=== PATIENT | female | born 1990 | race Caucasian/White ===

== ENCOUNTER → 2016-11-08 | Outpatient (CLI) | payer OTHER | END | disposition home or self-care (01) | LOC: LABWHC1 10:44 | PROVIDERS: ATTEND Obstetrics & Gynecology | DX: Z33.1 Pregnant state, incidental (principal) | CPT/HCPCS: 36415; 84702 ==

== ENCOUNTER → 2016-11-10 | Outpatient (CLI) | payer OTHER | END | disposition home or self-care (01) | LOC: LABWHC1 11:48 | PROVIDERS: ATTEND Obstetrics & Gynecology | DX: Z34.90 Encounter for supervision of normal pregnancy, unspecified, unspecified trimester (principal) | CPT/HCPCS: 36415; 84702 ==

== ENCOUNTER 2016-11-15 20:49 | Emergency (ER) | payer OTHER ==
[2016-11-15 21:54] LABS: Appearance,Urine Cloudy (Clear); Bacteria,Urine Rare /hpf; Bilirubin,Urine Negative (Negative); Glucose,Urine (UA) Negative (Negative); Ketones,Urine Negative (Negative); Leukocyte Esterase,Urine Small (Negative); Mucus,Urine Rare /hpf; Nitrite,Urine Negative (Negative); Particle Count 2500; Protein,Urine Negative (Negative); RBC,Urine 1 /hpf (0-5); Squamous Epithelial Cell,Urine 5 /hpf (0-4); UA Billing (MACRO vs. MICRO) MICRO; Urobilinogen,Urine <2.0 mg/dL (<2.0); WBC,Urine 2 /hpf (0-5)
--- NOTE | 2016-11-15 22:16 | ED ---
Abdominal Pain HPI - General Chief Complaint: Abdominal Pain Stated Complaint: 6 wks . Cramping Time Seen by Provider: 11/15/16 21:24 Source: patient Mode of arrival: ambulatory Limitations: no limitations - History of Present Illness Initial Comments: Patient is 26-year-old woman who states that she was at work today around 1 PM when she noticed abdominal cramping, mainly in the left lower quadrant but also sometimes across the upper abdomen. She states it was intermittent, is moderate intensity. The patient denies associated symptoms. She has not had change in bowel movements or urination. She is not having vaginal bleeding. She states that she is 6 weeks based on last menstrual period and she has had positive test. Patient relates previous history of ectopic and also of having had miscarriages. She sees Dr. Kuester. FUENTES Complaint: abdominal pain Onset/Timin -: hour(s) Location: LLQ Migration to: no migration Severity: moderate Quality: cramping Consistency: intermittent Improves With: nothing Worsens With: nothing Associated Symptoms: denies other symptoms - Related Data LMP (females 10-50): 2 months Patient : Yes Home Medications Medication Instructions Recorded Confirmed Ciprofloxacin HCl [Cipro] 250 mg PO Q12HR 10/11/15 10/11/15 Previous Rx's Medication Instructions Recorded Naproxen 500 mg PO Q12HR 14 Days 10/11/15 Amoxicillin 500 mg PO Q8H #21 capsule 11/16/16 Allergies Allergy/AdvReac Type Severity Reaction Status Date / Time aspirin Allergy Rash/Hives Verified 11/15/16 20:55 cinnamon Allergy Anaphylaxis Verified 11/15/16 20:55 molasses Allergy Unknown Verified 11/15/16 20:55 amphetamine aspartate AdvReac Confusion Verified 11/15/16 20:55 [From Adderall] amphetamine sulfate AdvReac Confusion Verified 11/15/16 20:55 [From Adderall] benztropine mesylate AdvReac Hallucinati Verified 11/15/16 20:55 [From Cogentin] ons codeine AdvReac Hallucinati Verified 11/15/16 20:55 ons dextroamphetamine saccharate AdvReac Confusion Verified 11/15/16 20:55 [From Adderall] dextroamphetamine sulfate AdvReac Confusion Verified 11/15/16 20:55 [From Adderall] lamotrigine [From Lamictal] AdvReac Rash/Hives Verified 11/15/16 20:55 BR[place]AR Allergy Anaphylaxis Uncoded 11/15/16 20:55 Review of Systems ROS Statement: Those systems with pertinent positive or pertinent negative responses have been documented in the HPI. ROS Other: All systems not noted in ROS Statement are negative. Constitutional: Denies: fever, chills Respiratory: Denies: cough, dyspnea Cardiovascular: Denies: chest pain, palpitations Gastrointestinal: Reports: as per HPI, abdominal pain. Denies: nausea, vomiting Genitourinary: Denies: urgency, dysuria, frequency, hematuria, discharge, abnormal menses Musculoskeletal: Denies: back pain Skin: Denies: rash Neurological: Denies: headache, weakness, numbness Hematological/Lymphatic: Denies: easy bleeding Past Medical History Past Medical History: No Reported History Additional Past Medical History / Comment(s): heart murmur, ectopic History of Any Multi-Drug Resistant Organisms: MRSA Date of last positivie culture/infection: 2010 MDRO Source:: Left Knee Past Surgical History: No Surgical Hx Reported Additional Past Surgical History / Comment(s): ovary removal, lumpectomy Past Psychological History: Anxiety, Bipolar, Depression Smoking Status: Current every day smoker Past Alcohol Use History: Occasional Past Drug Use History: None Reported General Exam Limitations: no limitations General appearance: alert, in no apparent distress Head exam: Present: atraumatic, normocephalic Eye exam: Present: normal appearance. Absent: scleral icterus, conjunctival injection ENT exam: Present: normal oropharynx, mucous membranes moist Respiratory exam: Present: normal lung sounds bilaterally. Absent: respiratory distress, wheezes, rales, rhonchi, stridor Cardiovascular Exam: Present: regular rate, normal rhythm, normal heart sounds. Absent: systolic murmur, diastolic murmur, rubs, gallop GI/Abdominal exam: Present: soft, normal bowel sounds. Absent: distended, tenderness, guarding, rebound, rigid, mass, pulsatile mass, hernia External exam: Present: normal external exam. Absent: erythema, swelling, lesions, lacerations, ecchymosis Speculum exam: Present: normal speculum exam. Absent: erythema, vaginal discharge, cervical discharge, vaginal bleeding, foreign body, tissue, laceration By manual exam: Present: normal by manual exam. Absent: cervical motion tenderness, adnexal tenderness, adnexal mass, uterine enlargement, uterine tenderness Extremities exam: Present: normal inspection, normal capillary refill. Absent: pedal edema, calf tenderness Back exam: Present: normal inspection. Absent: CVA tenderness (R), CVA tenderness (L), vertebral tenderness Neurological exam: Present: alert Skin exam: Present: warm, dry, intact, normal color. Absent: rash Course Vital Signs 11/15/16 11/15/16 11/16/16 20:51 22:25 01:00 Temperature 97.3 F L Pulse Rate 95 82 88 Respiratory 18 16 18 Rate Blood Pressure 114/60 123/56 113/59 O2 Sat by Pulse 99 99 97 Oximetry Medical Decision Making - Lab Data Lab Results 11/15/16 11/15/16 11/15/16 Range/Units 21:30 21:30 21:30 HCG, Quant mIU/mL Urine Color Light Yellow Urine Appearance Cloudy H (Clear) Urine pH 6.0 (5.0-8.0) Ur Specific [place] 1.010 (1.001-1.035) Urine Protein Negative (Negative) Urine Glucose (UA) Negative (Negative) Urine Ketones Negative (Negative) Urine Blood Negative (Negative) Urine Nitrite Negative (Negative) Urine Bilirubin Negative (Negative) Urine Urobilinogen <2.0 (<2.0) mg/dL Ur Leukocyte Esterase Small H (Negative) Urine RBC 1 (0-5) /hpf Urine WBC 2 (0-5) /hpf Ur Squamous Epith Cells 5 H (0-4) /hpf Urine Bacteria Rare H (None) /hpf Urine Mucus Rare H (None) /hpf Urine HCG, Qual Detected (Not Detectd) Trichomonas Ag (Rapid) (Negative) Blood Type A Positive Blood Type Recheck No 11/15/16 11/15/16 Range/Units 21:30 21:30 HCG, Quant 44282.0 mIU/mL Urine Color Urine Appearance (Clear) Urine pH (5.0-8.0) Ur Specific [place] (1.001-1.035) Urine Protein (Negative) Urine Glucose (UA) (Negative) Urine Ketones (Negative) Urine Blood (Negative) Urine Nitrite (Negative) Urine Bilirubin (Negative) Urine Urobilinogen (<2.0) mg/dL Ur Leukocyte Esterase (Negative) Urine RBC (0-5) /hpf Urine WBC (0-5) /hpf Ur Squamous Epith Cells (0-4) /hpf Urine Bacteria (None) /hpf Urine Mucus (None) /hpf Urine HCG, Qual (Not Detectd) Trichomonas Ag (Rapid) Negative (Negative) Blood Type Blood Type Recheck Disposition Clinical Impression: Abdominal pain, Bacteriuria during Disposition: HOME SELF-CARE Condition: Good Instructions: Abdominal Pain in (ED) Prescriptions: Amoxicillin 500 mg PO Q8H #21 capsule Referrals: Saleem Valle DO [Doctor of Osteopathic Medicine] - 1-2 days
[2016-11-16 01:01] VITALS: RESP 18
--- NOTE | 2016-11-16 01:23 | US ---
EXAM: US First Trimester, Transabdominal US , Transvaginal CLINICAL HISTORY: Pain, cramping TECHNIQUE: Real-time transabdominal and transvaginal obstetrical ultrasound of the maternal pelvis and a first trimester with image documentation. Transvaginal imaging was used for better evaluation of the fetus and adnexa. COMPARISON: No relevant prior studies available. FINDINGS: Beta-hCG level: 19401 Gestation: Single live intrauterine . Estimated sonographic gestational age of 6 weeks and 3 days. heart rate measures 128 bpm. Uterus/cervix: The uterus measures 7.7 x 4.9 x 4.8 cm. No myometrial mass. Ovaries: 2.2 cm complex right ovarian cyst is favored to represent a corpus luteum. There is normal vascular flow in bilateral ovaries. The right ovary measures 4.4 x 2.1 x 3.0 cm. The left ovary measures 3.9 x 2. 0 x 2.7 cm. Free fluid: No free fluid. IMPRESSION: Single live intrauterine with an estimated sonographic gestational age of 6 weeks and 3 days.
[2016-11-16 02:14] VITALS: BP 119/60; PULSE 82; TEMP 98.2
== END 2016-11-16 02:14 | disposition home or self-care (01) ==
LOC: EC 20:49
DX: O99.89 Other specified diseases and conditions complicating pregnancy, childbirth and the puerperium (principal); R82.71 Bacteriuria; R10.32 Left lower quadrant pain; O99.331 Smoking (tobacco) complicating pregnancy, first trimester; F17.200 Nicotine dependence, unspecified, uncomplicated; Z3A.01 Less than 8 weeks gestation of pregnancy; Z86.14 Personal history of Methicillin resistant Staphylococcus aureus infection; Z88.5 Allergy status to narcotic agent; Z88.6 Allergy status to analgesic agent; Z88.8 Allergy status to other drugs, medicaments and biological substances; Z91.018 Allergy to other foods; Z91.048 Other nonmedicinal substance allergy status
CPT/HCPCS: 36415; 76801; 76817; 81001; 81025; 84702; 86900; 86901; 87070; 87205; 87491; 87591; 87808; 99284

== ENCOUNTER 2016-11-16 19:33 | Emergency (ER) | payer OTHER ==
[2016-11-16 20:09] VITALS: RESP 18
--- NOTE | 2016-11-16 21:08 | ED ---
Female Urogenital HPI - General Chief complaint: Vaginal Bleeding Stated complaint: Vag bleeding/6wks Time Seen by Provider: 11/16/16 20:42 Source: patient, RN notes reviewed Mode of arrival: ambulatory Limitations: no limitations - History of Present Illness Initial comments: Patient is a 26-year-old female presents to the emergency room for evaluation. Patient states she was here last night for abdominal cramping. Patient states she 6 weeks . Patient states after having sexual intercourse this afternoon she began having vaginal spotting. 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 Patient states she had an ultrasound yesterday which showed a confirmed intrauterine . Patient denies worsening pain. Patient denies nausea or vomiting. Patient denies headache or dizziness. Patient states the vaginal bleeding worried her, so she thought she should be evaluated. Patient denies passing clots. Patient denies pain or burning during urination. - Related Data Home Medications Medication Instructions Recorded Confirmed Ciprofloxacin HCl [Cipro] 250 mg PO Q12HR 10/11/15 10/11/15 Previous Rx's Medication Instructions Recorded Naproxen 500 mg PO Q12HR 14 Days 10/11/15 Amoxicillin 500 mg PO Q8H #21 capsule 11/16/16 Allergies Allergy/AdvReac Type Severity Reaction Status Date / Time aspirin Allergy Rash/Hives Verified 11/16/16 20:09 cinnamon Allergy Anaphylaxis Verified 11/16/16 20:09 molasses Allergy Unknown Verified 11/16/16 20:09 amphetamine aspartate AdvReac Confusion Verified 11/16/16 20:09 [From Adderall] amphetamine sulfate AdvReac Confusion Verified 11/16/16 20:09 [From Adderall] benztropine mesylate AdvReac Hallucinati Verified 11/16/16 20:09 [From Cogentin] ons codeine AdvReac Hallucinati Verified 11/16/16 20:09 ons dextroamphetamine saccharate AdvReac Confusion Verified 11/16/16 20:09 [From Adderall] dextroamphetamine sulfate AdvReac Confusion Verified 11/16/16 20:09 [From Adderall] lamotrigine [From Lamictal] AdvReac Rash/Hives Verified 11/16/16 20:09 [place] Allergy Anaphylaxis Uncoded 11/16/16 20:09 Review of Systems ROS Statement: Those systems with pertinent positive or pertinent negative responses have been documented in the HPI. ROS Other: All systems not noted in ROS Statement are negative. Past Medical History Past Medical History: No Reported History Additional Past Medical History / Comment(s): heart murmur, ectopic History of Any Multi-Drug Resistant Organisms: MRSA Date of last positivie culture/infection: 2010 MDRO Source:: Left Knee Past Surgical History: No Surgical Hx Reported Additional Past Surgical History / Comment(s): ovary removal, lumpectomy Past Psychological History: Anxiety, Bipolar, Depression Smoking Status: Current every day smoker Past Alcohol Use History: Occasional Past Drug Use History: None Reported General Exam - General Exam Comments Initial Comments: Sitting in exam room, no acute distress. Limitations: no limitations General appearance: alert, in no apparent distress Head exam: Present: atraumatic, normocephalic, normal inspection Eye exam: Present: normal appearance ENT exam: Present: normal exam Neck exam: Present: normal inspection Respiratory exam: Present: normal lung sounds bilaterally. Absent: respiratory distress Cardiovascular Exam: Present: regular rate, normal rhythm, normal heart sounds GI/Abdominal exam: Present: soft, normal bowel sounds. Absent: distended, tenderness, guarding, rebound, rigid External exam: Present: normal external exam Speculum exam: Present: vaginal bleeding (Mild blood in the vaginal vault) Extremities exam: Present: normal inspection Back exam: Present: normal inspection Neurological exam: Present: alert, oriented X3, CN II-XII intact, normal gait Psychiatric exam: Present: normal affect, normal mood Skin exam: Present: warm, dry, intact, normal color. Absent: rash Course Vital Signs 11/16/16 11/16/16 20:06 23:26 Temperature 98.6 F 98.5 F Pulse Rate 88 77 Respiratory 18 18 Rate Blood Pressure 128/64 111/60 O2 Sat by Pulse 100 98 Oximetry Medical Decision Making - Medical Decision Making patient is a 26-year-old female presents emergency room with reevaluation of vaginal bleeding. Patient states that 6 weeks . Patient had ultrasound yesterday confirmed IUP. Patient having vaginal bleeding today. Patient's serum beta-hCG yesterday was 24302.0. [place] [address].4. Advised patient to return to lab and 48 hours for repeat serum beta hCG. Strongly advised patient to refrain from sexual intercourse. Patient states she understands everything that was discussed with her. Return parameters discussed. Case discussed with Dr. Sanders. - Lab Data Lab Results 11/16/16 11/16/16 Range/Units 21:33 21:33 HCG, Quant 51848.4 mIU/mL Urine Color Yellow Urine Appearance Clear (Clear) Urine pH 6.0 (5.0-8.0) Ur Specific [place] 1.021 (1.001-1.035) Urine Protein Negative (Negative) Urine Glucose (UA) Negative (Negative) Urine Ketones Negative (Negative) Urine Blood Trace H (Negative) Urine Nitrite Negative (Negative) Urine Bilirubin Negative (Negative) Urine Urobilinogen <2.0 (<2.0) mg/dL Ur Leukocyte Esterase Negative (Negative) Urine RBC <1 (0-5) /hpf Urine WBC 3 (0-5) /hpf Ur Squamous Epith Cells 1 (0-4) /hpf Urine Mucus Many H (None) /hpf - Radiology Data Radiology results: report reviewed, image reviewed Disposition Clinical Impression: Threatened Disposition: HOME SELF-CARE Condition: Good Instructions: Threatened Miscarriage (ED) Additional Instructions: Drink plenty of water. Please follow-up with [facility]. Refrain from sexual intercourse. Take Tylenol as needed for pain. Please return to lab in 48 hours for repeat serum beta hCG. If any new symptom arises or symptoms worsen, return to ER as soon as possible. Referrals: Mani Pozo MD [Primary Care Provider] - 1-2 days Saleem Valle DO [Doctor of Osteopathic Medicine] - 1-2 days Time of Disposition: 23:02
[2016-11-16 22:02] LABS: Appearance,Urine Clear (Clear); Bilirubin,Urine Negative (Negative); Glucose,Urine (UA) Negative (Negative); Ketones,Urine Negative (Negative); Leukocyte Esterase,Urine Negative (Negative); Mucus,Urine Many /hpf; Nitrite,Urine Negative (Negative); Particle Count 6422; Protein,Urine Negative (Negative); RBC,Urine <1 /hpf (0-5); Specific Gravity,Urine 1.021 (1.001-1.035); Squamous Epithelial Cell,Urine 1 /hpf (0-4); UA Billing (MACRO vs. MICRO) MICRO; Urobilinogen,Urine <2.0 mg/dL (<2.0); WBC,Urine 3 /hpf (0-5)
[2016-11-16 23:29] VITALS: BP 111/60; PULSE 77; TEMP 98.5
== END 2016-11-16 23:30 | disposition home or self-care (01) ==
LOC: EC 19:33
DX: O20.0 Threatened abortion (principal); Z3A.01 Less than 8 weeks gestation of pregnancy; F17.200 Nicotine dependence, unspecified, uncomplicated; Z88.6 Allergy status to analgesic agent; Z88.8 Allergy status to other drugs, medicaments and biological substances; Z91.018 Allergy to other foods
CPT/HCPCS: 36415; 81001; 84702; 99284

== ENCOUNTER → 2016-11-18 | Outpatient (CLI) | payer OTHER | END | disposition home or self-care (01) | LOC: LABWHC1 12:33 | PROVIDERS: ATTEND Physician Assistant | DX: O20.0 Threatened abortion (principal); Z3A.00 Weeks of gestation of pregnancy not specified | CPT/HCPCS: 36415; 84702 ==

== ENCOUNTER 2016-11-25 13:06 | Emergency (ER) | payer OTHER ==
[2016-11-25 13:19] VITALS: RESP 18
[2016-11-25 14:06] LABS: Basophils % (A) 0 %; CH 29.9; CHCM 34.4; Eosinophils # (A) 0.1 k/uL (0-0.7); Eosinophils % (A) 1 %; HCT 36.7 % (34.0-46.0); HDW 2.31; HGB 12.2 gm/dL (11.4-16.0); Luc # (Auto) 0.14; Luc % (Auto) 1; Lymphocytes # (A) 1.7 k/uL (1.0-4.8); Lymphocytes % (A) 17 %; MCH 29.1 pg (25.0-35.0); MCHC 33.3 g/dL (31.0-37.0); MCV 87.3 fL (80.0-100.0); Monocytes # (A) 0.6 k/uL (0-1.0); Monocytes % (A) 6 %; Neutrophils # (A) 7.4 k/uL (1.3-7.7); Neutrophils % (A) 74 %; RDW 13.7 % (11.5-15.5); WBC (Perox) 10.31
[2016-11-25 14:12] LABS: Appearance,Urine Clear (Clear); Bilirubin,Urine Negative (Negative); Glucose,Urine (UA) Negative (Negative); Ketones,Urine Negative (Negative); Leukocyte Esterase,Urine Negative (Negative); Mucus,Urine Few /hpf; Nitrite,Urine Negative (Negative); PH, Urine 5.5 (5.0-8.0); Particle Count 6790; Protein,Urine Trace (Negative); RBC,Urine 115 /hpf (0-5); Specific Gravity,Urine 1.016 (1.001-1.035); Squamous Epithelial Cell,Urine 1 /hpf (0-4); UA Billing (MACRO vs. MICRO) MICRO; Urobilinogen,Urine <2.0 mg/dL (<2.0); WBC,Urine 3 /hpf (0-5)
--- NOTE | 2016-11-25 14:37 | ED ---
Female Urogenital HPI - General Chief complaint: Vaginal Bleeding Stated complaint: Miscarriage-vaginal bleeding Time Seen by Provider: 11/25/16 13:24 Source: patient, RN notes reviewed Mode of arrival: ambulatory Limitations: no limitations - History of Present Illness Initial comments: 26-year-old female presented emergency department for vaginal bleeding, passing clots. Patient states that started earlier today. She states she has been seen in emergency department prior in this for bleeding but states that stopped up until today. She does complain of abdominal cramping. Patient denies any fever or chills denies nausea vomiting diarrhea constipation. Patient states her FRIT MAKER is Dr. Lu. Patient is a 4 patient has had one ectopic and 3 miscarriages Last Menstrual Period: 10/03/16 - Related Data Home Medications Medication Instructions Recorded Confirmed Acetaminophen [Tylenol] 325 mg PO Q4H PRN 11/25/16 11/25/16 Albuterol Inhaler [Ventolin Hfa 2 puff INHALATION RT-DAILY PRN 11/25/16 11/25/16 Inhaler] Pnv,Calcium 72/Iron/Folic Acid 1 tab PO DAILY 11/25/16 11/25/16 [ Plus Tablet] Allergies Allergy/AdvReac Type Severity Reaction Status Date / Time aspirin Allergy Rash/Hives Verified 11/25/16 13:59 cinnamon Allergy Anaphylaxis Verified 11/25/16 13:59 molasses Allergy Unknown Verified 11/25/16 13:59 amphetamine aspartate AdvReac Confusion Verified 11/25/16 13:59 [From Adderall] amphetamine sulfate AdvReac Confusion Verified 11/25/16 13:59 [From Adderall] benztropine mesylate AdvReac Hallucinati Verified 11/25/16 13:59 [From Cogentin] ons codeine AdvReac Hallucinati Verified 11/25/16 13:59 ons dextroamphetamine saccharate AdvReac Confusion Verified 11/25/16 13:59 [From Adderall] dextroamphetamine sulfate AdvReac Confusion Verified 11/25/16 13:59 [From Adderall] lamotrigine [From Lamictal] AdvReac Rash/Hives Verified 11/25/16 13:59 [place] Allergy Anaphylaxis Uncoded 11/25/16 13:19 Review of Systems ROS Statement: Those systems with pertinent positive or pertinent negative responses have been documented in the HPI. ROS Other: All systems not noted in ROS Statement are negative. Past Medical History Past Medical History: No Reported History Additional Past Medical History / Comment(s): heart murmur, ectopic History of Any Multi-Drug Resistant Organisms: MRSA Date of last positivie culture/infection: 2010 MDRO Source:: Left Knee Past Surgical History: No Surgical Hx Reported Additional Past Surgical History / Comment(s): ovary removal, lumpectomy Past Psychological History: Anxiety, Bipolar, Depression Smoking Status: Current every day smoker Past Alcohol Use History: Occasional Past Drug Use History: None Reported General Exam Limitations: no limitations General appearance: alert, in no apparent distress Respiratory exam: Present: normal lung sounds bilaterally. Absent: respiratory distress, wheezes, rales, rhonchi, stridor Cardiovascular Exam: Present: regular rate, normal rhythm, normal heart sounds. Absent: systolic murmur, diastolic murmur, rubs, gallop, clicks GI/Abdominal exam: Present: soft, normal bowel sounds. Absent: distended, tenderness, guarding, rebound, rigid External exam: Present: normal external exam, other (Exam performed with Cherri RN) Speculum exam: Present: vaginal bleeding (large blood clot removed) Back exam: Absent: CVA tenderness (R), CVA tenderness (L) Skin exam: Present: warm, dry, intact, normal color. Absent: rash Course Vital Signs 11/25/16 11/25/16 13:17 15:40 Temperature 98.1 F Pulse Rate 90 80 Respiratory 18 18 Rate Blood Pressure 133/91 109/54 O2 Sat by Pulse 99 98 Oximetry Medical Decision Making - Medical Decision Making 26-year-old female presented for vaginal bleeding and . Patient ultrasound did show viable IUP 8 weeks 1 day. Patient's quad did elevate over 70,000. Patient denies a large clot in the emergency Department and had repeat ultrasound which showed continue heart tones. Patient will be discharged prior to follow up with Dr. Valle return parameters were discussed. - Lab Data Result diagrams: 11/25/16 13:35 Lab Results 11/25/16 11/25/16 11/25/16 Range/Units 13:35 13:35 13:35 WBC 10.0 (3.8-10.6) k/uL RBC 4.20 (3.80-5.40) m/uL Hgb 12.2 (11.4-16.0) gm/dL Hct 36.7 (34.0-46.0) % MCV 87.3 (80.0-100.0) fL MCH 29.1 (25.0-35.0) pg MCHC 33.3 (31.0-37.0) g/dL RDW 13.7 (11.5-15.5) % Plt Count 390 (150-450) k/uL Neutrophils % 74 % Lymphocytes % 17 % Monocytes % 6 % Eosinophils % 1 % Basophils % 0 % Neutrophils # 7.4 (1.3-7.7) k/uL Lymphocytes # 1.7 (1.0-4.8) k/uL Monocytes # 0.6 (0-1.0) k/uL Eosinophils # 0.1 (0-0.7) k/uL Basophils # 0.0 (0-0.2) k/uL HCG, Quant 07843.9 mIU/mL Urine Color Yellow Urine Appearance Clear (Clear) Urine pH 5.5 (5.0-8.0) Ur Specific [place] 1.016 (1.001-1.035) Urine Protein Trace H (Negative) Urine Glucose (UA) Negative (Negative) Urine Ketones Negative (Negative) Urine Blood Moderate H (Negative) Urine Nitrite Negative (Negative) Urine Bilirubin Negative (Negative) Urine Urobilinogen <2.0 (<2.0) mg/dL Ur Leukocyte Esterase Negative (Negative) Urine RBC 115 H (0-5) /hpf Urine WBC 3 (0-5) /hpf Ur Squamous Epith Cells 1 (0-4) /hpf Urine Mucus Few H (None) /hpf Disposition Clinical Impression: Threatened miscarriage Disposition: HOME SELF-CARE Condition: Stable Instructions: Threatened Miscarriage (ED) Additional Instructions: Please return to the Emergency Department if symptoms worsen or any other concerns. Referrals: Mani Pozo MD [Primary Care Provider] - 1-2 days Saleem Valle DO [Doctor of Osteopathic Medicine] - 1-2 days Time of Disposition: 15:44
--- NOTE | 2016-11-25 15:11 | US ---
EXAMINATION TYPE: US OB <=14 wks transvag DATE OF EXAM: 11/25/2016 COMPARISON: US 2017 CLINICAL HISTORY: Pain. EC patient with vaginal bleeding, pelvic pain and cramping today, ; Left Fallopian tube surgically removed per patient. EXAM PERFORMED: Transvaginal (TV) and Transabdominal (TA), transabdominal scanning performed for bet ter evaluation of the uterus and ovaries EXAM MEASUREMENTS: GESTATIONAL AGE / DATING Physician Established: not established Dates by LMP: (7 weeks/4 days) EDC: 07/10/2017 Dates by First Scan: (7 weeks/5 days) EDC: 07/09/2017 Dates by Current Scan for: (8 weeks/1 day) EDC: 07/06/2017 MATERNAL ANATOMY Uterus: anteverted Right Ovary: 3.1 x 3.3 x 1.5cm Left Ovary: 2.9 x 1.5 x 1.3cm Post CDS / Adnexa: wnl Presence of free fluid: no Presence of corpus luteal cyst: in right ovary = 1.6 x 1.2 x 1.0cm Presence of subchorionic bleed: no, however, vaginal bleeding still noted after end of TV US GESTATION / SURVEY CRL: 1.7cm (8 weeks/1 day) Yolk Sac (normal less than 6mm): 2.8mm Heart Rate: 172 bpm Rhythm: Normal IUP: Viable IUP Date of LMP: 10/03/2016 Beta HcG (if available): NA Chorion and amnion are not thought to have fused. Indeterminate decreased echogenicity noted within the pole. IMPRESSION: Single viable intrauterine corresponding to an ultrasound age of 8 weeks 1 day with estimat ed date of delivery 07/06/2017, additional findings above, follow-up recommended
[2016-11-25] MEDS ORDERED: ACETAMINOPHEN TAB 500 MG TAB PO STA (15:13)
[2016-11-25 15:41] VITALS: BP 109/54; PULSE 80
[2016-11-25 15:53] VITALS: TEMP 97.8
--- NOTE | 2016-11-25 15:54 | US ---
EXAMINATION TYPE: US OB limited DATE OF EXAM: 11/25/2016 COMPARISON: TV US today at 1406. CLINICAL HISTORY: Pain. EC patient with vaginal bleeding and clots after pelvic exam; TV US was perfo rmed just prior to pelvic exam today. Physician Angle Bender requested limited followup US to confirm fe jose heart rate still present after large clots were passed. EXAM PERFORMED: Limited TV US GESTATIONAL AGE / DATING Physician Established: not established Dates by Current Scan: (8 weeks/1 day) EDC: 07/06/2017 SURVEY for Heart Rate HEART RATE: 163 bpm RHYTHM: Normal Vaginal bleeding still present on TV US probe after heart rate was documented on this limited U S. An additional transvaginal exam was performed following the first exam on the same day. Repeat scanni ng performed for after passage of blood to assess for heart tones per the referring clinician. heart rate detected at 163 bpm. IMPRESSION: Viable intrauterine as described in previous report. Follow-up as indicated.
== END 2016-11-25 15:59 | disposition home or self-care (01) ==
LOC: EC 13:06
DX: O20.0 Threatened abortion (principal); N83.11 Corpus luteum cyst of right ovary; Z88.6 Allergy status to analgesic agent; Z88.5 Allergy status to narcotic agent; Z88.8 Allergy status to other drugs, medicaments and biological substances; Z91.018 Allergy to other foods; Z86.14 Personal history of Methicillin resistant Staphylococcus aureus infection; O99.331 Smoking (tobacco) complicating pregnancy, first trimester
CPT/HCPCS: 36415; 76801; 76815; 76817; 81001; 84702; 85025; 99284

== ENCOUNTER 2016-11-25 22:42 | Emergency (ER) | payer OTHER ==
[2016-11-25 22:53] VITALS: RESP 18
--- NOTE | 2016-11-26 01:17 | US ---
EXAM: US First Trimester, Transabdominal US , Transvaginal CLINICAL HISTORY: Reason: Pain TECHNIQUE: Real-time transabdominal and transvaginal obstetrical ultrasound of the maternal pelvis and a first trimester with image documentation. Transvaginal imaging was used for better evaluation of the fetus and adnexa. COMPARISON: Pelvic ultrasound 11/16/2016 and pelvic ultrasound 11/25/2016 FINDINGS: Gestation: Single intrauterine gestation with pole demonstrating crown-rump length of 1.79 cm corresponding to estimated gestational age of 8 weeks 2 days. Yolk sac identified. cardiac activity with heart rate of 175 bpm. Placenta/amniotic fluid: No subchorionic hemorrhage identified. Uterus/cervix: Uterus: 8.8 x 4.7 x 6.4 cm . Ovaries: Right Ovary: 3.7 x 1.9 x 2.8 cm Left Ovary: 2.9 x 1.8 x 1.4 cm Right ovary complex cystic lesion measuring 1.3 x 1.1 x 1.4 cm most likely reflecting corpus luteum cyst. Free fluid: No pelvic free fluid. IMPRESSION: Single live intrauterine with composite ultrasound estimated gestational age of 8 weeks 2 days. Small complex right ovarian cystic lesion most likely representing corpus luteum cyst. Clinical correlation recommended.
[2016-11-26] MEDS ORDERED: ACETAMINOPHEN TAB 500 MG TAB PO STA (01:20)
--- NOTE | 2016-11-26 02:02 | ED ---
Female Urogenital HPI - General Chief complaint: Vaginal Bleeding Stated complaint: miscarriage-revisit Time Seen by Provider: 11/25/16 23:16 Source: patient, RN notes reviewed, old records reviewed Mode of arrival: ambulatory Limitations: no limitations - History of Present Illness Initial comments: This is a 26 year old female with CC of vaginal bleeding. She was seen earlier today and received 2 US, despite passing clots she still had heart tones during second US. She reports she went home and had continued bleeding. She reports that she thinks she may have passed the fetus. She reports she is 8 weeks . She denies any light headed ness. THis is patient 5 miscarriage , she has no living children. Last Menstrual Period: 10/03/16 - Related Data Home Medications Medication Instructions Recorded Confirmed Albuterol Inhaler [Ventolin Hfa 2 puff INHALATION RT-Q6H PRN 11/25/16 11/25/16 Inhaler] Pnv,Calcium 72/Iron/Folic Acid 1 tab PO DAILY 11/25/16 11/25/16 [ Plus Tablet] Allergies Allergy/AdvReac Type Severity Reaction Status Date / Time aspirin Allergy Rash/Hives Verified 11/26/16 15:03 cinnamon Allergy Anaphylaxis Verified 11/26/16 15:03 molasses Allergy Unknown Verified 11/26/16 15:03 amphetamine aspartate AdvReac Confusion Verified 11/26/16 15:03 [From Adderall] amphetamine sulfate AdvReac Confusion Verified 11/26/16 15:03 [From Adderall] benztropine mesylate AdvReac Hallucinati Verified 11/26/16 15:03 [From Cogentin] ons codeine AdvReac Hallucinati Verified 11/26/16 15:03 ons dextroamphetamine saccharate AdvReac Confusion Verified 11/26/16 15:03 [From Adderall] dextroamphetamine sulfate AdvReac Confusion Verified 11/26/16 15:03 [From Adderall] lamotrigine [From Lamictal] AdvReac Rash/Hives Verified 11/26/16 15:03 BR[place]AR Allergy Anaphylaxis Uncoded 11/26/16 15:03 Review of Systems ROS Statement: Those systems with pertinent positive or pertinent negative responses have been documented in the HPI. ROS Other: All systems not noted in ROS Statement are negative. Past Medical History Past Medical History: No Reported History Additional Past Medical History / Comment(s): heart murmur, ectopic History of Any Multi-Drug Resistant Organisms: MRSA Date of last positivie culture/infection: 2010 MDRO Source:: Left Knee Past Surgical History: No Surgical Hx Reported Additional Past Surgical History / Comment(s): ovary removal, lumpectomy Past Psychological History: Anxiety, Bipolar, Depression Smoking Status: Current every day smoker Past Alcohol Use History: Occasional Past Drug Use History: None Reported General Exam - General Exam Comments Initial Comments: Well appearing 26 year old female, no distress. Limitations: no limitations General appearance: alert, in no apparent distress Head exam: Present: atraumatic, normocephalic, normal inspection Eye exam: Present: normal appearance, PERRL, EOMI. Absent: scleral icterus, conjunctival injection, periorbital swelling ENT exam: Present: normal exam, mucous membranes moist Neck exam: Present: normal inspection. Absent: tenderness, meningismus, lymphadenopathy Respiratory exam: Present: normal lung sounds bilaterally. Absent: respiratory distress, wheezes, rales, rhonchi, stridor Cardiovascular Exam: Present: regular rate, normal rhythm, normal heart sounds. Absent: systolic murmur, diastolic murmur, rubs, gallop, clicks GI/Abdominal exam: Present: soft, normal bowel sounds. Absent: distended, tenderness, guarding, rebound, rigid External exam: Present: normal external exam Speculum exam: Present: vaginal bleeding (significant amount of clots removed. Cervix appears open clots are expressed from os. ). Absent: normal speculum exam Extremities exam: Present: normal inspection, full ROM, normal capillary refill. Absent: tenderness, pedal edema, joint swelling, calf tenderness Back exam: Present: normal inspection Neurological exam: Present: alert, oriented X3, CN II-XII intact Psychiatric exam: Present: normal affect, normal mood Skin exam: Present: warm, dry, intact, normal color. Absent: rash Course Vital Signs 11/25/16 11/26/16 11/26/16 22:50 02:05 02:12 Temperature 97.2 F L 97.5 F L Pulse Rate 93 Pulse Rate [ 89 Left Sitting] Pulse Rate [ 97 Left Standing Pulse Oximetery ] Pulse Rate [ 75 Left Supine Pulse Oximetery ] Respiratory 18 Rate Blood Pressure 111/63 Blood Pressure 114/61 [Left Arm Sitting] Blood Pressure 152/59 [Left Arm Standing] Blood Pressure 102/51 [Left Arm Supine] O2 Sat by Pulse 99 Oximetry Medical Decision Making - Medical Decision Making 26 year old female with threatend miscarriage. Blood work obtained earlier today and normal hemoglobin. She denies any light headedness or shortness of breath. Denies signifcant abdominal pain. On vaginal exam, cervical os is mildly dilated and clots removed. After US was obtained and still shows heart tones. Patient was informed of impending miscarriage, and informed to repeat hcg in 2 days and follow up with OBGYN. Patient understands treatment plan and will comply. REturn parameters discussed. - Radiology Data Radiology results: report reviewed Single IUP of 8 weeks an 2 days, heart tones 175. No subchorionic bleed. Disposition Clinical Impression: Threatened miscarriage Disposition: HOME SELF-CARE Condition: Good Instructions: Threatened Miscarriage (ED) Additional Instructions: Patient has a follow-up with Dr. Lu. Return to emergency department if any alarming signs or symptoms occur. Referrals: Mani Pozo MD [Primary Care Provider] - 1-2 days Time of Disposition: 02:01
[2016-11-26 02:07] VITALS: BP 102/51; PULSE 75
[2016-11-26 02:14] VITALS: TEMP 97.5
== END 2016-11-26 02:14 | disposition home or self-care (01) ==
LOC: EC 22:42
DX: O20.0 Threatened abortion (principal); O99.331 Smoking (tobacco) complicating pregnancy, first trimester; F17.200 Nicotine dependence, unspecified, uncomplicated; Z3A.08 8 weeks gestation of pregnancy; Z79.899 Other long term (current) drug therapy; Z88.6 Allergy status to analgesic agent; Z88.5 Allergy status to narcotic agent; Z88.8 Allergy status to other drugs, medicaments and biological substances; Z91.018 Allergy to other foods; Z91.02 Food additives allergy status
CPT/HCPCS: 76801; 76817; 99284

== ENCOUNTER 2016-11-26 14:52 | Emergency (ER) | payer OTHER ==
[2016-11-26] MEDS ORDERED: MORPHINE SULFATE 4 MG/ML SYRINGE IVP STA (15:28)
[2016-11-26] MEDS ORDERED: SODIUM CHLORIDE 0.9% 1,000 ML IV ONE (15:28)
--- NOTE | 2016-11-26 15:56 | ED ---
Female Urogenital HPI - General Chief complaint: Vaginal Bleeding Stated complaint: Vaginal Bleeding Time Seen by Provider: 11/26/16 15:13 Source: patient Mode of arrival: ambulatory Limitations: no limitations - History of Present Illness Initial comments: This is a 26-year-old female with a history of 4 miscarriages and ectopic or presents emergency department for miscarriage. The patient states that she passed tissue just prior to arrival. She states that she's been having bleeding since then a lot of cramping. She was seen in emergency department twice yesterday for vaginal bleeding and suspicion of miscarriage. She states that the tissue appeared to look like a fetus. She also passed a lot of clots and blood. She denies any chest pain or shortness of breath. No lightheadedness or syncope. She follows with Dr. Lu. - Related Data Home Medications Medication Instructions Recorded Confirmed Albuterol Inhaler [Ventolin Hfa 2 puff INHALATION RT-Q6H PRN 11/25/16 11/26/16 Inhaler] Pnv,Calcium 72/Iron/Folic Acid 1 tab PO DAILY 11/25/16 11/26/16 [ Plus Tablet] Previous Rx's Medication Instructions Recorded HYDROcodone/APAP 5-325MG [Galax 1 tab PO Q6HR PRN #15 tab 11/26/16 5-325] Allergies Allergy/AdvReac Type Severity Reaction Status Date / Time aspirin Allergy Rash/Hives Verified 11/26/16 15:43 cinnamon Allergy Anaphylaxis Verified 11/26/16 15:43 molasses Allergy Unknown Verified 11/26/16 15:43 amphetamine aspartate AdvReac Confusion Verified 11/26/16 15:43 [From Adderall] amphetamine sulfate AdvReac Confusion Verified 11/26/16 15:43 [From Adderall] benztropine mesylate AdvReac Hallucinati Verified 11/26/16 15:43 [From Cogentin] ons codeine AdvReac Hallucinati Verified 11/26/16 15:43 ons dextroamphetamine saccharate AdvReac Confusion Verified 11/26/16 15:43 [From Adderall] dextroamphetamine sulfate AdvReac Confusion Verified 11/26/16 15:43 [From Adderall] lamotrigine [From Lamictal] AdvReac Rash/Hives Verified 11/26/16 15:43 [place] Allergy Anaphylaxis Uncoded 11/26/16 15:03 Review of Systems ROS Statement: Those systems with pertinent positive or pertinent negative responses have been documented in the HPI. ROS Other: All systems not noted in ROS Statement are negative. Past Medical History Past Medical History: No Reported History Additional Past Medical History / Comment(s): heart murmur, ectopic History of Any Multi-Drug Resistant Organisms: MRSA Date of last positivie culture/infection: 2010 MDRO Source:: Left Knee Past Surgical History: No Surgical Hx Reported Additional Past Surgical History / Comment(s): ovary removal, lumpectomy Past Psychological History: Anxiety, Bipolar, Depression Smoking Status: Current every day smoker Past Alcohol Use History: Occasional Past Drug Use History: None Reported General Exam - General Exam Comments Initial Comments: Constitutional: Awake alert Appears comfortable Head: Normocephalic atraumatic Eyes: no conjunctival injection No scleral icterus EOMI Neck: No JVD Supple Heart: Regular rate rhythm normal S1-S2 no murmurs Lungs: Clear to auscultation bilaterally No wheezing No rales Abdomen: Soft nondistended nontender no pelvic tenderness : There is pooling of dark blood in the posterior fornix. Cervix is difficult to visualize because of the bleeding. Bimanual exam showed cervix was still open Extremities: Non edematous DP pulses intact Radial pulses intact Neuro: A&Ox3 No focal neurologic deficits Psych: Appropriate mood and affect Limitations: no limitations Course Vital Signs 11/26/16 15:01 Temperature 98.0 F Pulse Rate 102 H Respiratory 20 Rate Blood Pressure 115/58 O2 Sat by Pulse 99 Oximetry Medical Decision Making - Medical Decision Making This is a 26-year-old female presents emergency department for vaginal bleeding and passage of tissue. This started just prior to arrival. She was still having bleeding when she can emergency department. She is moving of cramping. Patient was evaluated and exam did reveal continuous bleeding however not severe. She did appear to have a open cervical os. At this time I feel the patient is still actively miscarrying. She was given morphine and fluids and had improvement in her pain. Ultrasound did note that there was areas of hyper echogenic 80 in the uterus with concern for retained proximal however since the patient is still actively miscarrying feel that she requires admission. She is to follow-up with her GUEST ROOM INSPECTOR in the next 1-2 days for repeat hCG and reexamination. She will return if she has worsening or changing symptoms. All questions were answered. - Lab Data Result diagrams: 11/26/16 15:50 Lab Results 11/26/16 11/26/16 Range/Units 15:50 15:50 WBC 11.7 H (3.8-10.6) k/uL RBC 3.98 (3.80-5.40) m/uL Hgb 11.7 (11.4-16.0) gm/dL Hct 35.1 (34.0-46.0) % MCV 88.3 (80.0-100.0) fL MCH 29.4 (25.0-35.0) pg MCHC 33.3 (31.0-37.0) g/dL RDW 14.0 (11.5-15.5) % Plt Count 380 (150-450) k/uL Neutrophils % 76 % Lymphocytes % 16 % Monocytes % 5 % Eosinophils % 1 % Basophils % 0 % Neutrophils # 8.9 H (1.3-7.7) k/uL Lymphocytes # 1.8 (1.0-4.8) k/uL Monocytes # 0.5 (0-1.0) k/uL Eosinophils # 0.2 (0-0.7) k/uL Basophils # 0.0 (0-0.2) k/uL HCG, Quant 83051.8 mIU/mL Disposition Clinical Impression: Miscarriage Disposition: HOME SELF-CARE Condition: Stable Instructions: Miscarriage (ED) Additional Instructions: Follow up with your Student Support Services Director for repeat BHCG and re-examination. Prescriptions: HYDROcodone/APAP 5-325MG [Galax 5-325] 1 tab PO Q6HR PRN #15 tab PRN Reason: Pain Referrals: Mani Pozo MD [Primary Care Provider] - 1-2 days Saleem Valle DO [Doctor of Osteopathic Medicine] - 1-2 days
[2016-11-26 16:02] LABS: Basophils % (A) 0 %; CHCM 34.1; Eosinophils # (A) 0.2 k/uL (0-0.7); Eosinophils % (A) 1 %; HCT 35.1 % (34.0-46.0); HDW 2.32; HGB 11.7 gm/dL (11.4-16.0); Luc # (Auto) 0.18; Luc % (Auto) 2; Lymphocytes # (A) 1.8 k/uL (1.0-4.8); Lymphocytes % (A) 16 %; MCH 29.4 pg (25.0-35.0); MCHC 33.3 g/dL (31.0-37.0); MCV 88.3 fL (80.0-100.0); Mean Platelet Volume 7.2; Monocytes # (A) 0.5 k/uL (0-1.0); Monocytes % (A) 5 %; Neutrophils # (A) 8.9 k/uL (1.3-7.7); Neutrophils % (A) 76 %; RBC 3.98 m/uL (3.80-5.40); WBC 11.7 k/uL (3.8-10.6); WBC (Perox) 11.87
--- NOTE | 2016-11-26 16:54 | US ---
EXAMINATION TYPE: US transvaginal DATE OF EXAM: 11/26/2016 COMPARISON: CLINICAL HISTORY: Eval for retained products. Miscarriage x today. Bleeding. TECHNIQUE: Transvaginal (TV) Date of LMP: 10/03/2016, EXAM MEASUREMENTS: Uterus: 8.8 x 5.6 x 4.5 cm Endometrial Stripe: 2.3 cm Right Ovary: 3.8 x 2.0 x 1.8 cm Left Ovary: 3.9 x 1.9 x 1.6 cm 1. Uterus: Retroverted wnl 2. Endometrium: Thickened. Heterogenous. 3. Right Ovary: Hypoechoic nonvascular lesion seen = 1.2 x 0.9 x 1.1 cm 4. Left Ovary: cystic appearing lesion = 1.3 x 1.1 x 1.5 cm Spectral, color and waveform doppler imaging shows good arterial and venous flow within the ovaries ; there is no evidence for ovarian torsion. 5. Bilateral Adnexa: wnl 6. Posterior cul-de-sac: no free fluid Cervix- Cervical canal appears dilated with possible tissue IMPRESSION: Abnormal thickening of the endometrium, consider retained products of conception.
[2016-11-26 17:19] VITALS: BP 115/62; PULSE 92; RESP 18; TEMP 98.4
== END 2016-11-26 17:18 | disposition home or self-care (01) ==
LOC: EC 14:52
DX: O03.9 Complete or unspecified spontaneous abortion without complication (principal); Z3A.08 8 weeks gestation of pregnancy; F17.200 Nicotine dependence, unspecified, uncomplicated; Z79.899 Other long term (current) drug therapy; Z88.6 Allergy status to analgesic agent; Z88.5 Allergy status to narcotic agent; Z88.8 Allergy status to other drugs, medicaments and biological substances; Z91.018 Allergy to other foods; Z91.02 Food additives allergy status
CPT/HCPCS: 36415; 85025; 84702; 93975; 76830; 99284; 96374; 96361; J2270; 88300; 88305

== ENCOUNTER → 2016-12-09 | Outpatient (CLI) | payer OTHER | END | disposition home or self-care (01) | LOC: LABWHC1 15:52 | PROVIDERS: ATTEND Obstetrics & Gynecology | DX: O03.9 Complete or unspecified spontaneous abortion without complication (principal) | CPT/HCPCS: 36415; 84702 ==

== ENCOUNTER 2016-12-12 13:52 | Observation (INO) | payer OTHER ==
[2016-12-12] MEDS ORDERED: SODIUM CHLORIDE 0.9% 1,000 ML IV STA (16:29)
--- NOTE | 2016-12-12 16:36 | ED ---
General Adult HPI <Justin Steiner - Last Filed: 12/12/16 18:52> - General Source: patient, RN notes reviewed Mode of arrival: ambulatory Limitations: no limitations <Bibi Patino - Last Filed: 12/12/16 19:02> - General Chief complaint: Vaginal Bleeding Stated complaint: Female -sent by Dr. Valle Time Seen by Provider: 12/12/16 16:19 - History of Present Illness Initial comments: 26 yo female presents to the emergency department with a chief complaint of vaginal bleeding. Patient had a miscarriage 2 weeks ago. Patient is a . patient states that she blood in the bleeding subsided spotting and now she is passing large clots almost the size of her hand. They called Dr. Valle's office and she was referred here for a possible D&C. Patient states that she isn't really have lightheadedness. Patient states just continues to pass clots. patient states in the past all of her miscarriages she bled for about a week and then subsided. She's never had to have a D&C before. Patient denies any other symptoms at this time. Patient denies any recent fever, chills, shortness of breath, chest pain, back pain, nausea vomiting, numbness or tingling, dysuria or hematuria, constipation or diarrhea, headaches or visual changes, or any other current symptoms. (Bibi Patino) - Related Data Home Medications Medication Instructions Recorded Confirmed Albuterol Inhaler [Ventolin Hfa 2 puff INHALATION RT-Q6H PRN 11/25/16 11/26/16 Inhaler] Pnv,Calcium 72/Iron/Folic Acid 1 tab PO DAILY 11/25/16 11/26/16 [ Plus Tablet] Previous Rx's Medication Instructions Recorded HYDROcodone/APAP 5-325MG [[place] 1 tab PO Q6HR PRN #15 tab 11/26/16 5-325] Allergies Allergy/AdvReac Type Severity Reaction Status Date / Time aspirin Allergy Rash/Hives Verified 12/12/16 14:11 cinnamon Allergy Anaphylaxis Verified 12/12/16 14:11 molasses Allergy Unknown Verified 12/12/16 14:11 amphetamine aspartate AdvReac Confusion Verified 12/12/16 14:11 [From Adderall] amphetamine sulfate AdvReac Confusion Verified 12/12/16 14:11 [From Adderall] benztropine mesylate AdvReac Hallucinati Verified 12/12/16 14:11 [From Cogentin] ons codeine AdvReac Hallucinati Verified 12/12/16 14:11 ons dextroamphetamine saccharate AdvReac Confusion Verified 12/12/16 14:11 [From Adderall] dextroamphetamine sulfate AdvReac Confusion Verified 12/12/16 14:11 [From Adderall] lamotrigine [From Lamictal] AdvReac Rash/Hives Verified 12/12/16 14:11 [place] Allergy Anaphylaxis Uncoded 12/12/16 14:11 Review of Systems ROS Other: All systems not noted in ROS Statement are negative. <Justin Steiner - Last Filed: 12/12/16 18:52> ROS Other: All systems not noted in ROS Statement are negative. <Bibi Patino - Last Filed: 12/12/16 19:02> ROS Statement: Those systems with pertinent positive or pertinent negative responses have been documented in the HPI. Past Medical History Past Medical History: No Reported History Additional Past Medical History / Comment(s): heart murmur, ectopic History of Any Multi-Drug Resistant Organisms: MRSA Date of last positivie culture/infection: 2010 MDRO Source:: Left Knee Past Surgical History: No Surgical Hx Reported Additional Past Surgical History / Comment(s): tube removal, lumpectomy Past Psychological History: Anxiety, Bipolar, Depression Smoking Status: Former smoker Past Alcohol Use History: Occasional Past Drug Use History: None Reported <Bibi Patino - Last Filed: 12/12/16 19:02> General Exam Limitations: no limitations General appearance: alert, in no apparent distress Eye exam: Present: normal appearance, PERRL, EOMI. Absent: scleral icterus, conjunctival injection, periorbital swelling Neck exam: Present: normal inspection. Absent: tenderness, meningismus, lymphadenopathy Respiratory exam: Present: normal lung sounds bilaterally. Absent: respiratory distress, wheezes, rales, rhonchi, stridor Cardiovascular Exam: Present: regular rate, normal rhythm, normal heart sounds. Absent: systolic murmur, diastolic murmur, rubs, gallop, clicks GI/Abdominal exam: Present: soft, normal bowel sounds. Absent: distended, tenderness, guarding, rebound, rigid Neurological exam: Present: alert, oriented X3 Psychiatric exam: Present: normal affect, normal mood Skin exam: Present: warm, dry, intact, normal color. Absent: rash <Bibi Patino - Last Filed: 12/12/16 19:02> Medical Decision Making - Lab Data Result diagrams: 12/12/16 17:13 12/12/16 17:13 <Justin Steiner - Last Filed: 12/12/16 18:52> - Lab Data Result diagrams: 12/12/16 17:13 12/12/16 17:13 - Radiology Data Radiology results: report reviewed, image reviewed <Bibi Patino - Last Filed: 12/12/16 19:02> - Medical Decision Making Medical decision making. I spoke with the patient. Several weeks ago she had a miscarriage 3 days ago she saw her MARINE RESOURCE ECONOMIST at that time she is only spotting since then she developed a large amount of bleeding yesterday and today soaked through her pants and had for side clots. Today's labs show beta was 321. She is Rh A+. Ultrasound showed clots in the uterus with possible retained foreign bodies. Her hemoglobin on the fifth of this month was 11.7 today and said 9.4. The white count is 9.8. 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 3 previous miscarriages. I discussed the case with Dr. Wasserman patient be admitted her service with possible D&C. Dr. Steiner (Justin Steiner) 26 yo female presents to the emergency department with a chief complaint of vaginal bleeding following a miscarriage. At this time the patient case was discussed with Dr. Wasserman and they plan on doing a D&C. We are currently pending anesthesiology admit the patient continue IV fluid. Patient is in agreement with the plan. (Bibi Patino) - Lab Data Lab Results 12/12/16 12/12/16 12/12/16 Range/Units 17:13 17:13 17:13 WBC 9.8 (3.8-10.6) k/uL RBC 3.28 L (3.80-5.40) m/uL Hgb 9.4 L D (11.4-16.0) gm/dL Hct 28.5 L (34.0-46.0) % MCV 87.1 (80.0-100.0) fL MCH 28.6 (25.0-35.0) pg MCHC 32.8 (31.0-37.0) g/dL RDW 13.3 (11.5-15.5) % Plt Count 472 H (150-450) k/uL Neutrophils % 71 % Lymphocytes % 20 % Monocytes % 5 % Eosinophils % 2 % Basophils % 1 % Neutrophils # 7.0 (1.3-7.7) k/uL Lymphocytes # 2.0 (1.0-4.8) k/uL Monocytes # 0.5 (0-1.0) k/uL Eosinophils # 0.2 (0-0.7) k/uL Basophils # 0.1 (0-0.2) k/uL PT (9.0-12.0) sec INR (<1.2) APTT (22.0-30.0) sec Sodium 139 (137-145) mmol/L Potassium 3.9 (3.5-5.1) mmol/L Chloride 104 (98-107) mmol/L Carbon Dioxide 23 (22-30) mmol/L Anion Gap 12 mmol/L BUN 13 (7-17) mg/dL Creatinine 0.57 (0.52-1.04) mg/dL Est GFR (MDRD) Af Amer >60 (>60 ml/min/1.73 sqM) Est GFR (MDRD) Non-Af >60 (>60 ml/min/1.73 sqM) Glucose 100 H (74-99) mg/dL Calcium 9.1 (8.4-10.2) mg/dL Total Bilirubin 0.2 (0.2-1.3) mg/dL AST 15 (14-36) U/L ALT 26 (9-52) U/L Alkaline Phosphatase 68 (38-126) U/L Total Protein 6.8 (6.3-8.2) g/dL Albumin 4.1 (3.5-5.0) g/dL HCG, Quant 321.9 mIU/mL Blood Type A Positive Blood Type Recheck No Antibody Screen NEGATIVE Spec Expiration Date 12/15/2016 - 231212/12/16 Range/Units 17:13 WBC (3.8-10.6) k/uL RBC (3.80-5.40) m/uL Hgb (11.4-16.0) gm/dL Hct (34.0-46.0) % MCV (80.0-100.0) fL MCH (25.0-35.0) pg MCHC (31.0-37.0) g/dL RDW (11.5-15.5) % Plt Count (150-450) k/uL Neutrophils % % Lymphocytes % % Monocytes % % Eosinophils % % Basophils % % Neutrophils # (1.3-7.7) k/uL Lymphocytes # (1.0-4.8) k/uL Monocytes # (0-1.0) k/uL Eosinophils # (0-0.7) k/uL Basophils # (0-0.2) k/uL PT 10.7 (9.0-12.0) sec INR 1.1 (<1.2) APTT 24.3 (22.0-30.0) sec Sodium (137-145) mmol/L Potassium (3.5-5.1) mmol/L Chloride (98-107) mmol/L Carbon Dioxide (22-30) mmol/L Anion Gap mmol/L BUN (7-17) mg/dL Creatinine (0.52-1.04) mg/dL Est GFR (MDRD) Af Amer (>60 ml/min/1.73 sqM) Est GFR (MDRD) Non-Af (>60 ml/min/1.73 sqM) Glucose (74-99) mg/dL Calcium (8.4-10.2) mg/dL Total Bilirubin (0.2-1.3) mg/dL AST (14-36) U/L ALT (9-52) U/L Alkaline Phosphatase (38-126) U/L Total Protein (6.3-8.2) g/dL Albumin (3.5-5.0) g/dL HCG, Quant mIU/mL Blood Type Blood Type Recheck Antibody Screen Spec Expiration Date Disposition <Justin Steiner - Last Filed: 12/12/16 18:52> Decision Date: 12/12/16 Decision Time: 18:56 <Bibi Patino - Last Filed: 12/12/16 19:02> Clinical Impression: Retained products of conception Disposition: ADMITTED IP TO THIS [facility] Condition: Stable Referrals: Nasir Thompson DO [Primary Care Provider] - 1-2 days
[2016-12-12 17:24] LABS: Basophils # (A) 0.1 k/uL (0-0.2); Basophils % (A) 1 %; CH 29.1; CHCM 33.6; Eosinophils # (A) 0.2 k/uL (0-0.7); Eosinophils % (A) 2 %; HCT 28.5 % (34.0-46.0); HDW 2.94; Luc # (Auto) 0.19; Luc % (Auto) 2; Lymphocytes % (A) 20 %; MCH 28.6 pg (25.0-35.0); MCHC 32.8 g/dL (31.0-37.0); MCV 87.1 fL (80.0-100.0); Mean Platelet Volume 7.2; Monocytes # (A) 0.5 k/uL (0-1.0); Monocytes % (A) 5 %; Neutrophils % (A) 71 %; RBC 3.28 m/uL (3.80-5.40); RDW 13.3 % (11.5-15.5); WBC 9.8 k/uL (3.8-10.6); WBC (Perox) 10.27
[2016-12-12 17:29] LABS: HGB 9.4 gm/dL (11.4-16.0)
[2016-12-12 17:34] LABS: AST 15 U/L (14-36); Alkaline Phosphatase 68 U/L (38-126); Anion Gap 12 mmol/L; Blood Urea Nitrogen 13 mg/dL (7-17); Calcium 9.1 mg/dL (8.4-10.2); Carbon Dioxide 23 mmol/L (22-30); Chloride 104 mmol/L (98-107); Glucose 100 mg/dL (74-99); Non-African American GFR(MDRD) >60 (>60 ml/min/1.73 sqM); Potassium 3.9 mmol/L (3.5-5.1); Sodium 139 mmol/L (137-145); Total Bilirubin 0.2 mg/dL (0.2-1.3); Total Protein 6.8 g/dL (6.3-8.2)
[2016-12-12 17:36] LABS: INR 1.1 (<1.2); Partial Thromboplastin Time 24.3 sec (22.0-30.0); Prothrombin Time 10.7 sec (9.0-12.0)
[2016-12-12 17:39] LABS: ALT 26 U/L (9-52)
--- NOTE | 2016-12-12 18:14 | US ---
EXAMINATION TYPE: US transvaginal DATE OF EXAM: 12/12/2016 COMPARISON: NONE CLINICAL HISTORY: Pain. Patient had miscarriage 2 weeks prior, she has bleeding for one week that tur cherri to spotting, then 2 days prior she had increased bleeding that has increased today passing large clots. TECHNIQUE: Transvaginal (TV) Date of LMP: 2 weeks prior EXAM MEASUREMENTS: Uterus: 8.6 x 5.2 x 5.7 cm Endometrial Stripe: 2.3 cm Right Ovary: 3.9 x 3.6 x 3.5 cm Left Ovary: 4.4 x 3.6 x 3.3 cm 1. Uterus: Anteverted, small amount of free fluid anterior to uterus 2. Endometrium: thickened and heterogeneous with echogenic focal areas, no increased vascularity 3. Right Ovary: cyst with internal debris measuring 2.9 x 2.7 x 2.9cm, ff adjacent to cyst 4. Left Ovary: simple appearing cyst measuring 2.7 x 3. 5 x 2.6cm Spectral, color and waveform doppler imaging shows good arterial and venous flow within the ovaries ; there is no evidence for ovarian torsion. 5. Bilateral Adnexa: ff in right 6. Posterior cul-de-sac: wnl IMPRESSION: Bilateral ovarian cysts as above. Irregular endometrial thickening that is suggestive of blood clot and possible retained products.
[2016-12-12] MEDS ORDERED: MORPHINE SULFATE 4 MG/ML SYRINGE IV STA (18:54)
[2016-12-12] MEDS ORDERED: NALOXONE 0.4 MG/ML 1 ML VIAL IV PRN (19:03)
[2016-12-12] MEDS ORDERED: SODIUM CHLORIDE 0.9% 1,000 ML IV SCH (19:15)
--- NOTE | 2016-12-12 19:45 | P.HPOB ---
History of Present Illness H&P Date: 12/12/16 Chief Complaint: Incomplete 26 year old presents with heavy vaginal bleeding and a bhcg of over 300. She has some retained products in her uterus. She has been bleeding for a few weeks and her hemoglobin has dropped from 11 to 9 over the last 20 days. Review of Systems All systems: negative Constitutional: Denies chills, Denies fever Eyes: denies blurred vision, denies pain Ears, nose, mouth and throat: Denies headache, Denies sore throat Cardiovascular: Denies chest pain, Denies shortness of breath Respiratory: Denies cough Gastrointestinal: Denies abdominal pain, Denies diarrhea, Denies nausea, Denies vomiting Genitourinary: Denies dysuria, Denies hematuria Musculoskeletal: Denies myalgias Integumentary: Denies pruritus, Denies rash Neurological: Denies numbness, Denies weakness Psychiatric: Denies anxiety, Denies depression Endocrine: Denies fatigue, Denies weight change Past Medical History Past Medical History: No Reported History Additional Past Medical History / Comment(s): heart murmur, ectopic. 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, one ectopic requiring x-lap with removal of fallopian tube History of Any Multi-Drug Resistant Organisms: MRSA Date of last positivie culture/infection: 2010 MDRO Source:: Left Knee Additional Past Surgical History / Comment(s): tube removal, lumpectomy from neck Past Psychological History: Anxiety, Bipolar, Depression Smoking Status: Former smoker Past Alcohol Use History: Occasional Past Drug Use History: None Reported Medications and Allergies Home Medications Medication Instructions Recorded Confirmed Type Albuterol Inhaler [Ventolin Hfa 2 puff INHALATION RT-Q6H PRN 11/25/16 11/26/16 History Inhaler] Pnv,Calcium 72/Iron/Folic Acid 1 tab PO DAILY 11/25/16 11/26/16 History [ Plus Tablet] Allergies Allergy/AdvReac Type Severity Reaction Status Date / Time aspirin Allergy Rash/Hives Verified 12/12/16 14:11 cinnamon Allergy Anaphylaxis Verified 12/12/16 14:11 molasses Allergy Unknown Verified 12/12/16 14:11 amphetamine aspartate AdvReac Confusion Verified 12/12/16 14:11 [From Adderall] amphetamine sulfate AdvReac Confusion Verified 12/12/16 14:11 [From Adderall] benztropine mesylate AdvReac Hallucinati Verified 12/12/16 14:11 [From Cogentin] ons codeine AdvReac Hallucinati Verified 12/12/16 14:11 ons dextroamphetamine saccharate AdvReac Confusion Verified 12/12/16 14:11 [From Adderall] dextroamphetamine sulfate AdvReac Confusion Verified 12/12/16 14:11 [From Adderall] lamotrigine [From Lamictal] AdvReac Rash/Hives Verified 12/12/16 14:11 BROWN SUGAR Allergy Anaphylaxis Uncoded 12/12/16 14:11 Exam Osteopathic Statement: *. No significant issues noted on an osteopathic structural exam other than those noted in the History and Physical/Consult. - Vital Signs Vital signs: Vital Signs Temp Pulse Resp BP Pulse Ox 12/12/16 19:11 98.7 F 102 H 18 120/69 97 12/12/16 14:08 97.9 F 87 18 125/77 100 Intake and Output 12/12/16 12/12/16 12/12/16 06:59 14:59 22:59 Other: Weight 73.028 kg Patient Weight 12/13/16 06:59 Weight 73.028 kg HEart: RRR Lungs: RRR Abdomen: soft, nontender Extremeties: neg feroz's Results Result Diagrams: 12/12/16 17:13 12/12/16 17:13 Abnormal Lab Results - Last 24 Hours (Table) 12/12/16 12/12/16 Range/Units 17:13 17:13 RBC 3.28 L (3.80-5.40) m/uL Hgb 9.4 L D (11.4-16.0) gm/dL Hct 28.5 L (34.0-46.0) % Plt Count 472 H (150-450) k/uL Glucose 100 H (74-99) mg/dL Assessment and Plan (1) Incomplete Status: Acute Plan: 1. suction D&C. Disc all R/B/A with pt and she expressed understanding
[2016-12-12] MEDS ORDERED: MIDAZOLAM 2 MG/2 ML VIAL ONE (20:02)
[2016-12-12] MEDS ORDERED: SUCCINYLCHOLINE CHLORIDE 100 MG/5 ML SYR IV ONE (20:02)
[2016-12-12] MEDS ORDERED: PROPOFOL 10 MG/ML 20 ML VIAL IV ONE (20:02)
[2016-12-12] MEDS ORDERED: SODIUM CHLORIDE 0.9% 1,000 ML IV ONE ×2 (20:02→20:24)
[2016-12-12] MEDS ORDERED: fentaNYL (PF) 50 MCG/ML 2 ML AMP ONE (20:02)
[2016-12-12] MEDS ORDERED: KETOROLAC 30 MG/ML 1 ML VIAL IVP ONE (20:33)
--- NOTE | 2016-12-12 20:39 | P.OP ---
Date of Procedure: 12/12/16 Preoperative Diagnosis: 1. Incomplete Postoperative Diagnosis: 1. Incomplete Procedure(s) Performed: Suction D&C Implants: Anesthesia: COURTNEY Surgeon: Jannie Wasserman Estimated Blood Loss (ml): 100 IV fluids (ml): 500 Urine output (ml): 300 Pathology: other (Products of conception) Condition: stable Disposition: PACU Indications for Procedure: Operative Findings: moderate amount products of conception, cervix dilated 1cm Description of Procedure: Patient taken the operating room and general anesthesia was obtained without difficulty. She is prepped and draped in normal sterile fashion dorsal lithotomy position, legs placed in the candycane stirrups. Bladder was drained of all urine. Weighted speculum placed in the vagina and the anterior lip of cervix was grasped with single-tooth tenaculum. The cervix was found to be 1 cm dilated. A #12 curved suction curet was introduced into the uterus and hooked up to suction. Several passes were made and a moderate amount of products of conception were removed. Sharp curet was used to ensure all products had been removed. The suction curet was passed again to ensure all blood and products were removed. Hemostasis was assured. All instrument removed from the vagina. Patient tolerated the procedure well, sponge and instrument counts were correct 2. She was taken to recovery room in stable condition.
[2016-12-12 20:43] VITALS: TEMP 99
[2016-12-12] MEDS ORDERED: HYDROmorphone 1 MG/ML 1 ML SYRINGE IVP ONE ×2 (20:55→21:00)
[2016-12-12] MEDS ORDERED: ONDANSETRON 4 MG/2 ML VIAL IVP ONE (21:30)
[2016-12-12 22:28] VITALS: BP 113/62; PULSE 89; RESP 18
--- NOTE | 2016-12-20 16:40 | P.DS ---
Providers Date of admission: 12/12/16 19:21 Expected date of discharge: 12/12/16 Attending physician: Jannie Wasserman Primary care physician: Nasir Thompson - Discharge Diagnosis(es) (1) Incomplete Status: Acute Hospital Course: Patient was seen in the emergency room on 12/12/2016 with incomplete . She was taken to the operating room of the same evening and a section dilation and curettage was performed. She was discharged home that evening in stable condition to follow-up with her normal dance teacher, Dr. Valle in the next few weeks. Patient Condition at Discharge: Stable Plan - Discharge Summary New Discharge Prescriptions: No Action Pnv,Calcium 72/Iron/Folic Acid [ Plus Tablet] 1 tab PO DAILY Albuterol Inhaler [Ventolin Hfa Inhaler] 2 puff INHALATION RT-Q6H PRN PRN Reason: Shortness Of Breath HYDROcodone/APAP 5-325MG [Andrews 5-325] 1 tab PO Q6HR PRN #15 tab PRN Reason: Pain Discharge Medication List Albuterol Inhaler [Ventolin Hfa Inhaler] 2 puff INHALATION RT-Q6H PRN 11/25/16 [ History] Pnv,Calcium 72/Iron/Folic Acid [ Plus Tablet] 1 tab PO DAILY 11/25/16 [ History] HYDROcodone/APAP 5-325MG [Andrews 5-325] 1 tab PO Q6HR PRN #15 tab 11/26/16 [Rx] Follow up Appointment(s)/Referral(s): Saleem Valle DO [Doctor of Osteopathic Medicine] - 4 Weeks Nasir Thompson DO [Primary Care Provider] - 1-2 days Patient Instructions/Handouts: *Surgery [facility] - (Anesthesia) Discharge Instructions Outpatient Surgery, Dilation and Curettage (DC) Discharge Disposition: HOME SELF-CARE
== END 2016-12-12 23:50 | disposition home or self-care (01) ==
LOC: EC 13:52 → 4FBP 19:21 → INTOOBSV 19:21 → 3OBS 20:54
PROVIDERS: ADMIT Obstetrics & Gynecology; ATTEND Obstetrics & Gynecology
DX: O03.4 Incomplete spontaneous abortion without complication (principal); Z88.6 Allergy status to analgesic agent; Z88.5 Allergy status to narcotic agent; Z88.8 Allergy status to other drugs, medicaments and biological substances; Z91.018 Allergy to other foods; Z86.14 Personal history of Methicillin resistant Staphylococcus aureus infection; Z87.891 Personal history of nicotine dependence
CPT/HCPCS: 59812; 99285; 96374; 96361 ×4; 36415; 86900; 86901; 88305; 80053; 85025; 85610; 85730; 86850; 84702; 93975; 76830; G0378 ×2; J2250; J2270; J2405; J3010; J1885; J1170; J0330; J2704

== ENCOUNTER → 2016-12-24 | Outpatient (CLI) | payer OTHER | END | disposition home or self-care (01) | LOC: LABWHC1 15:54 | PROVIDERS: ATTEND Obstetrics & Gynecology | DX: O03.9 Complete or unspecified spontaneous abortion without complication (principal) | CPT/HCPCS: 36415; 84702 ==

== ENCOUNTER → 2016-12-31 | Outpatient (CLI) | payer OTHER | LOC: LABWHC1 14:22 | PROVIDERS: ATTEND Obstetrics & Gynecology | DX: O03.9 Complete or unspecified spontaneous abortion without complication (principal); Z3A.00 Weeks of gestation of pregnancy not specified | CPT/HCPCS: 36415; 84702 ==

== ENCOUNTER → 2017-01-07 | Outpatient (CLI) | payer OTHER | END | disposition home or self-care (01) | LOC: LABWHC1 12:23 | PROVIDERS: ATTEND Obstetrics & Gynecology | DX: O03.9 Complete or unspecified spontaneous abortion without complication (principal) | CPT/HCPCS: 36415; 84702 ==

== ENCOUNTER → 2017-01-08 | Outpatient (CLI) | payer OTHER ==
[2017-01-09 14:37] LABS: Protein C (Activity) 110 % (70 - 130)
[2017-01-09 14:38] LABS: Free Protein S Antigen 78 % (50 - 147)
[2017-01-09 21:08] LABS: Hemoglobin A1C 5.2 % (4.2-6.1)
== END | disposition home or self-care (01) ==
LOC: LABWHC1 15:51
PROVIDERS: ATTEND Obstetrics & Gynecology
DX: N96 Recurrent pregnancy loss (principal)
CPT/HCPCS: 36415; 81241; 83001; 83002; 83036; 84146; 84443; 85303; 85306; 85613; 85730; 86147; 86800

== ENCOUNTER → 2017-02-10 | Outpatient (CLI) | payer OTHER ==
--- NOTE | 2017-02-10 13:34 | US ---
EXAMINATION TYPE: US pelvic complete DATE OF EXAM: 02/10/2017 COMPARISON: Pelvic ultrasound December 12, 2016 CLINICAL HISTORY: Pelvic pain R10.2. Right pelvic pain, painful intercourse, D&C 12/12/16, history of ectopic with left tube removed 2010 TECHNIQUE: Transabdominal (TA) Date of LMP: 01/31/17 EXAM MEASUREMENTS: Uterus: 7.4 x 3.8 x 5.0 cm Endometrial Stripe: 0.3 cm Right Ovary: 4.0 x 1.7 x 3.3 cm Left Ovary: 4.4 x 2.1 x 2.1 cm 1. Uterus: Anteverted wnl 2. Endometrium: appears wnl 3. Right Ovary: follicles noted 4. Left Ovary: follicles noted 5. Bilateral Adnexa: wnl 6. Posterior cul-de-sac: trace amount of free fluid IMPRESSION: No significant abnormality is seen to account for patient's symptoms. Unremarkable study currently.
== END | disposition home or self-care (01) ==
LOC: RADUSWWP 12:54
PROVIDERS: ATTEND Obstetrics & Gynecology
DX: R10.2 Pelvic and perineal pain (principal)
CPT/HCPCS: 76856

== ENCOUNTER 2017-06-21 19:03 | Emergency (ER) | payer OTHER ==
[2017-06-21] MEDS ORDERED: DIPH,PERTUS(ACELL)TETVAC-LF 0.5 ML VIAL IM ONE (19:21)
--- NOTE | 2017-06-21 19:47 | ED ---
General Adult HPI - General Source: patient, RN notes reviewed Mode of arrival: ambulatory Limitations: no limitations <Jose R Lim - Last Filed: 06/21/17 20:46> <Cristino Campuzano - Last Filed: 06/21/17 23:33> - General Chief complaint: Psychiatric Symptoms Stated complaint: SUICIDAL, LACERATION LEFT WRIST Time Seen by Provider: 06/21/17 19:12 - History of Present Illness Initial comments: 27-year-old female presents with suicidal thoughts and depression. Patient has had some worsening depression over the past several months. She is accompanied by her sister who states she "has had a bad day". She does admit to cutting her left wrist with a picnic razor. This is superficial. She states her tetanus is up-to-date. She denies any ingestion of any medications. She does admit to drinking alcohol. She has had previous issues with mental health, approximately 2 weeks ago she attempted to make an appointment with a counselor but has been unable to reach anyone for an appointment. (Jose R Lim) - Related Data Home Medications Medication Instructions Recorded Confirmed Albuterol Nebulized [Ventolin 2.5 mg INHALATION RT-Q4H PRN 06/21/17 06/21/17 Nebulized] Albuterol Sulfate [Proair Hfa] 1 - 2 puff INHALATION RT-Q6H PRN 06/21/17 Amoxicillin/Potassium Clav 1 tab PO Q12HR 06/21/17 06/21/17 [Augmentin 875-125 Tablet] Benzonatate [Tessalon Perles] 100 mg PO TID PRN 06/21/17 06/21/17 predniSONE 10 mg PO BID 06/21/17 06/21/17 Allergies Allergy/AdvReac Type Severity Reaction Status Date / Time aspirin Allergy Rash/Hives Verified 06/21/17 19:35 cinnamon Allergy Anaphylaxis Verified 06/21/17 19:35 molasses Allergy Unknown Verified 06/21/17 19:35 amphetamine aspartate AdvReac Confusion Verified 06/21/17 19:35 [From Adderall] amphetamine sulfate AdvReac Confusion Verified 06/21/17 19:35 [From Adderall] benztropine mesylate AdvReac Hallucinati Verified 06/21/17 19:35 [From Cogentin] ons codeine AdvReac Hallucinati Verified 06/21/17 19:35 ons dextroamphetamine saccharate AdvReac Confusion Verified 06/21/17 19:35 [From Adderall] dextroamphetamine sulfate AdvReac Confusion Verified 06/21/17 19:35 [From Adderall] lamotrigine [From Lamictal] AdvReac Rash/Hives Verified 06/21/17 19:35 [place]GAR Allergy Anaphylaxis Uncoded 12/12/16 14:11 nutmeg Allergy Unknown Uncoded 06/21/17 19:35 spices Allergy Unknown Uncoded 06/21/17 19:35 Review of Systems ROS Other: All systems not noted in ROS Statement are negative. <Jose R Lmi - Last Filed: 06/21/17 20:46> ROS Other: All systems not noted in ROS Statement are negative. <Cristino Campuzano - Last Filed: 06/21/17 23:33> ROS Statement: Those systems with pertinent positive or pertinent negative responses have been documented in the HPI. Past Medical History Past Medical History: No Reported History Additional Past Medical History / Comment(s): heart murmur, ectopic. 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, one ectopic requiring x-lap with removal of fallopian tube History of Any Multi-Drug Resistant Organisms: MRSA Date of last positivie culture/infection: 2010 MDRO Source:: Left Knee Past Surgical History: No Surgical Hx Reported Additional Past Surgical History / Comment(s): tube removal, lumpectomy from neck D&C Past Psychological History: Anxiety, Bipolar, Depression Smoking Status: Former smoker Past Alcohol Use History: Occasional Past Drug Use History: None Reported <Jose R Lim - Last Filed: 06/21/17 20:46> General Exam Limitations: no limitations General appearance: alert, in no apparent distress Head exam: Present: atraumatic, normocephalic Eye exam: Present: normal appearance, PERRL ENT exam: Present: normal exam Neck exam: Present: normal inspection. Absent: tenderness, meningismus Respiratory exam: Present: normal lung sounds bilaterally. Absent: respiratory distress, wheezes Cardiovascular Exam: Present: regular rate, normal rhythm GI/Abdominal exam: Present: soft. Absent: distended, tenderness Extremities exam: Present: other (Superficial abrasion to the left forearm, no laceration) Neurological exam: Present: alert, oriented X3, CN II-XII intact. Absent: motor sensory deficit Psychiatric exam: Present: depressed, anxious, suicidal ideation Skin exam: Present: warm, dry. Absent: cyanosis, diaphoretic <KarimeJose R saravia - Last Filed: 06/21/17 20:46> Course <KarimeJose R saravia - Last Filed: 06/21/17 20:46> <Cristino Campuzano - Last Filed: 06/21/17 23:33> Vital Signs 06/21/17 19:06 Temperature 98.3 F Pulse Rate 120 H Respiratory 22 Rate Blood Pressure 137/78 O2 Sat by Pulse 98 Oximetry - Reevaluation(s) Reevaluation #1: 06/21/17 2200 Patient's care is signed out to Dr. Campuzano awaiting EPS evaluation. (Jose R Lim) - Lab Data Lab Results 06/21/17 Range/Units 19:16 Urine Opiates Screen Not Detected (NotDetected) Ur Oxycodone Screen Not Detected (NotDetected) Urine Methadone Screen Not Detected (NotDetected) Ur Propoxyphene Screen Not Detected (NotDetected) Ur Barbiturates Screen Not Detected (NotDetected) U Tricyclic Antidepress Not Detected (NotDetected) Ur Phencyclidine Scrn Not Detected (NotDetected) Ur Amphetamines Screen Not Detected (NotDetected) U Methamphetamines Scrn Not Detected (NotDetected) U Benzodiazepines Scrn Not Detected (NotDetected) Urine Cocaine Screen Not Detected (NotDetected) U Marijuana (THC) Screen Not Detected (NotDetected) Disposition <KarimeJose R saravia - Last Filed: 06/21/17 20:46> Time of Disposition: 23:32 <Cristino Campuzano - Last Filed: 06/21/17 23:33> Clinical Impression: Alcohol intoxication, Situational depression Disposition: HOME SELF-CARE Condition: Good Instructions: Depression (ED) Additional Instructions: Follow-up per [facility] directions Referrals: Nasir Thompson DO [Primary Care Provider] - 1-2 days
[2017-06-21 20:08] LABS: Amphetamine Screen,Urine Not Detected (NotDetected); Barbiturate Screen,Urine Not Detected (NotDetected); Benzodiazepines Screen,Urine Not Detected (NotDetected); Cocaine Screen,Urine Not Detected (NotDetected); Methadone Screen, Urine Not Detected (NotDetected); Opiate Screen,Urine Not Detected (NotDetected); Oxycodone Screen, Urine Not Detected (NotDetected); Phencyclidine Screen,Urine Not Detected (NotDetected); Tricyclic Antidepressant,Urine Not Detected (NotDetected); Urn Cannabinoid Scrn Not Detected (NotDetected)
[2017-06-21 23:53] VITALS: BP 119/73; PULSE 77; RESP 20; TEMP 98.5
== END 2017-06-21 23:53 | disposition home or self-care (01) ==
LOC: EC 19:03
DX: F10.120 Alcohol abuse with intoxication, uncomplicated (principal); F43.21 Adjustment disorder with depressed mood; S61.512A Laceration without foreign body of left wrist, initial encounter; Z86.14 Personal history of Methicillin resistant Staphylococcus aureus infection; Z87.891 Personal history of nicotine dependence; Z79.52 Long term (current) use of systemic steroids; Z88.6 Allergy status to analgesic agent; Z91.048 Other nonmedicinal substance allergy status; Z88.5 Allergy status to narcotic agent; Z88.8 Allergy status to other drugs, medicaments and biological substances; Z91.018 Allergy to other foods; Z53.20 Procedure and treatment not carried out because of patient's decision for unspecified reasons; X78.8XXA Intentional self-harm by other sharp object, initial encounter
CPT/HCPCS: 80306; 82075; 99285

== ENCOUNTER → 2017-06-22 | Outpatient (CLI) | payer OTHER ==
--- NOTE | 2017-06-22 16:37 | XR ---
EXAMINATION TYPE: XR chest 2V DATE OF EXAM: 06/22/2017 COMPARISON: Prior chest x-ray 10/12/2013 HISTORY: R05 cough TECHNIQUE: Frontal and lateral views of the chest are obtained. FINDINGS: There is no focal air space opacity, pleural effusion, or pneumothorax seen. The cardiac silhouette size is within normal limits. There is bronchial wall thickening. The osseous structures are intact. IMPRESSION: Correlate for bronchitis, reactive airways disease
== END | disposition home or self-care (01) ==
LOC: LABATLAS 11:26
PROVIDERS: ATTEND Physician Assistant
DX: R05 Cough (principal)
CPT/HCPCS: 71046

== ENCOUNTER → 2017-07-21 | Outpatient (CLI) | payer OTHER | END | disposition home or self-care (01) | LOC: CPPFTMAIN 13:26 | PROVIDERS: ATTEND Family Medicine | DX: J45.909 Unspecified asthma, uncomplicated (principal) | CPT/HCPCS: 94060; 94726; 94729 ==

== ENCOUNTER 2017-08-18 04:57 | Emergency (ER) | payer OTHER ==
[2017-08-18 05:09] VITALS: PULSE 89; RESP 18; TEMP 98.5
--- NOTE | 2017-08-18 06:48 | ED ---
Anxiety HPI - General Chief Complaint: Anxiety Stated Complaint: Anxiety Time Seen by Provider: 08/18/17 05:27 Source: patient Mode of arrival: ambulatory - History of Present Illness Initial Comments: 27 years old female comes in with the anxiety she said she has anxiety since she was 13 years old and now she is requesting to talk to somebody she does have a counselor she sees Laura Albert. She denies any homicidal or suicidal ideation currently she is not on any medications and she is not requesting for a referral to a psychiatrist either. She denies any headaches no chest pain or shortness of breath no abdominal pain no frequency urgency dysuria - Related Data Home Medications: Home Medications Medication Instructions Recorded Confirmed Albuterol Nebulized [Ventolin 2.5 mg INHALATION RT-Q4H PRN 06/21/17 06/21/17 Nebulized] Albuterol Sulfate [Proair Hfa] 1 - 2 puff INHALATION RT-Q6H PRN 06/21/17 Amoxicillin/Potassium Clav 1 tab PO Q12HR 06/21/17 06/21/17 [Augmentin 875-125 Tablet] Benzonatate [Tessalon Perles] 100 mg PO TID PRN 06/21/17 06/21/17 predniSONE 10 mg PO BID 06/21/17 06/21/17 Allergies/Adverse Reactions: Allergies Allergy/AdvReac Type Severity Reaction Status Date / Time aspirin Allergy Rash/Hives Verified 08/18/17 05:09 cinnamon Allergy Anaphylaxis Verified 08/18/17 05:09 molasses Allergy Unknown Verified 08/18/17 05:09 amphetamine aspartate AdvReac Confusion Verified 08/18/17 05:09 [From Adderall] amphetamine sulfate AdvReac Confusion Verified 08/18/17 05:09 [From Adderall] benztropine mesylate AdvReac Hallucinati Verified 08/18/17 05:09 [From Cogentin] ons codeine AdvReac Hallucinati Verified 08/18/17 05:09 ons dextroamphetamine saccharate AdvReac Confusion Verified 08/18/17 05:09 [From Adderall] dextroamphetamine sulfate AdvReac Confusion Verified 08/18/17 05:09 [From Adderall] lamotrigine [From Lamictal] AdvReac Rash/Hives Verified 08/18/17 05:09 [place] Allergy Anaphylaxis Uncoded 08/18/17 05:09 nutmeg Allergy Unknown Uncoded 08/18/17 05:09 spices Allergy Unknown Uncoded 08/18/17 05:09 Review of Systems ROS Statement: Those systems with pertinent positive or pertinent negative responses have been documented in the HPI. ROS Other: All systems not noted in ROS Statement are negative. Past Medical History Past Medical History: No Reported History Additional Past Medical History / Comment(s): heart murmur, ectopic. 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, one ectopic requiring x-lap with removal of fallopian tube, iron defeciency anemia History of Any Multi-Drug Resistant Organisms: MRSA Date of last positivie culture/infection: 2010 MDRO Source:: Left Knee Past Surgical History: No Surgical Hx Reported Additional Past Surgical History / Comment(s): tube removal, lumpectomy from neck D&C Past Psychological History: Anxiety, Bipolar, Depression Smoking Status: Former smoker Past Alcohol Use History: Occasional Past Drug Use History: None Reported General Exam - General Exam Comments Initial Comments: General: The patient is awake and alert, in no distress, and does not appear acutely ill. Skin: Skin is warm and dry and no rashes or lesions are noted. Eye: Pupils are equal, round and reactive to light, extra-ocular movements are intact; there is normal conjunctiva bilaterally. Ears, nose, mouth and throat: There are moist mucous membranes and no oral lesions. Neck: The neck is supple, there is no tenderness or JVD. Cardiovascular: There is a regular rate and rhythm. No murmur, rub or gallop is appreciated. Respiratory: To auscultation bilateral, no wheezing no rhonchi no distress respiratory jackson noticed Gastrointestinal: Soft, non-distended, non-tender abdomen without masses or organomegaly noted. There is no rebound or guarding present. Bowel sounds are unremarkable. Back: There is no tenderness to palpation in the midline. There is no obvious deformity. Musculoskeletal: Normal ROM, no tenderness, There is no pedal edema. There is no calf tenderness or swelling. No cords were appreciated. Neurological: CN II-XII intact, Cranial nerves III through XII are intact. There are no obvious motor or sensory deficits. Coordination appears grossly intact. Speech is normal. Psychiatric: Cooperative, anxious, denies any suicidal or homicidal ideation Limitations: no limitations Course Vital Signs 08/18/17 05:04 Temperature 98.5 F Pulse Rate 89 Respiratory 18 Rate O2 Sat by Pulse 98 Oximetry She wanted to speak with EPS, [facility]PS was consulted, ABS had a detailed discussion with her and now they informed me that there was some sort of situation at home where she was concerned about some family members or boyfriend EPS give him education and counseling about that, at the end admitted to the patient she is satisfied and she wants to go home and she will follow-up according to the EPS direction Disposition Clinical Impression: Anxiety Disposition: HOME SELF-CARE Instructions: Generalized Anxiety Disorder (ED) Is patient prescribed a controlled substance at d/c from ED?: No If prescribed controlled substance>3 days was MAPS reviewed?: No When asked, does pt state using other controlled substances?: No Referrals: Nasir Thompson DO [Primary Care Provider] - 1-2 days
== END 2017-08-18 06:52 | disposition home or self-care (01) ==
LOC: EC 04:57
DX: F41.9 Anxiety disorder, unspecified (principal); Z86.14 Personal history of Methicillin resistant Staphylococcus aureus infection; Z87.891 Personal history of nicotine dependence; Z79.52 Long term (current) use of systemic steroids; Z88.6 Allergy status to analgesic agent; Z88.8 Allergy status to other drugs, medicaments and biological substances; Z88.5 Allergy status to narcotic agent; Z91.018 Allergy to other foods
CPT/HCPCS: 99283

== ENCOUNTER 2017-09-07 16:00 | Emergency (ER) | payer OTHER ==
[2017-09-07 17:16] VITALS: RESP 18
[2017-09-07] MEDS ORDERED: SODIUM CHLORIDE 0.9% 1,000 ML IV ONE (18:54)
[2017-09-07 19:21] LABS: Appearance,Urine Clear (Clear); Bilirubin,Urine Negative (Negative); Blood,Urine Small (Negative); Color,Urine Light Yellow; Glucose,Urine (UA) Negative (Negative); Ketones,Urine 1+ (Negative); Leukocyte Esterase,Urine Small (Negative); Mucus,Urine Rare /hpf; Nitrite,Urine Negative (Negative); Protein,Urine Negative (Negative); RBC,Urine 1 /hpf (0-5); Specific Gravity,Urine 1.011 (1.001-1.035); Squamous Epithelial Cell,Urine 4 /hpf (0-4); Urobilinogen,Urine <2.0 mg/dL (<2.0); WBC,Urine 2 /hpf (0-5)
[2017-09-07 19:31] LABS: Anisocytosis Slight; Basophils % (A) 0 %; Eosinophils # (A) 0.2 k/uL (0-0.7); Eosinophils % (A) 2 %; HCT 34.2 % (34.0-46.0); Lymphocytes # (A) 2.1 k/uL (1.0-4.8); Lymphocytes % (A) 22 %; MCH 24.7 pg (25.0-35.0); MCHC 32.2 g/dL (31.0-37.0); MCV 76.5 fL (80.0-100.0); Mean Platelet Volume 6.7; Microcytosis Slight; Monocytes # (A) 0.5 k/uL (0-1.0); Monocytes % (A) 5 %; Neutrophils # (A) 6.8 k/uL (1.3-7.7); Neutrophils % (A) 70 %; Platelet Count 460 k/uL (150-450); RBC 4.47 m/uL (3.80-5.40); RDW 16.9 % (11.5-15.5); WBC 9.7 k/uL (3.8-10.6)
--- NOTE | 2017-09-07 19:43 | ED ---
Female Urogenital HPI <Jose R Anderson - Last Filed: 09/07/17 21:00> - General Source: patient, RN notes reviewed, old records reviewed Mode of arrival: ambulatory Limitations: no limitations <PanchitoAlix - Last Filed: 09/08/17 07:55> - General Chief complaint: Vaginal Bleeding Stated complaint: Vaginal Bleeding-4 wks preg & Oral Pain Time Seen by Provider: 09/07/17 18:41 - History of Present Illness Initial comments: This patient's a 27-year-old female presents to the emergency department today chief complaint of lower right abdominal pain, vaginal bleeding. She reports about she was on Thursday. She had a positive urine test at home. 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 She had left oophorectomy, by Dr. Lu. Patient states that she also had a wisdom teeth removed last week. Does complain of bilateral lower dental pain. She states she's not been taking her pain medicine due to the finding out she was . (Alix Flanagan) - Related Data Home Medications Medication Instructions Recorded Confirmed Amoxicillin 500 mg PO Q8H 09/07/17 09/07/17 Ferrous Sulfate [Feosol] 325 mg PO DAILY 09/07/17 09/07/17 Ibuprofen [Motrin] 600 mg PO Q8HR PRN 09/07/17 09/07/17 Allergies Allergy/AdvReac Type Severity Reaction Status Date / Time aspirin Allergy Rash/Hives Verified 09/07/17 19:31 cinnamon Allergy Anaphylaxis Verified 09/07/17 19:31 molasses Allergy Unknown Verified 09/07/17 19:31 amphetamine aspartate AdvReac Confusion Verified 09/07/17 19:31 [From Adderall] amphetamine sulfate AdvReac Confusion Verified 09/07/17 19:31 [From Adderall] benztropine mesylate AdvReac Hallucinati Verified 09/07/17 19:31 [From Cogentin] ons codeine AdvReac Hallucinati Verified 09/07/17 19:31 ons dextroamphetamine saccharate AdvReac Confusion Verified 09/07/17 19:31 [From Adderall] dextroamphetamine sulfate AdvReac Confusion Verified 09/07/17 19:31 [From Adderall] lamotrigine [From Lamictal] AdvReac Rash/Hives Verified 09/07/17 19:31 BR[place]AR Allergy Anaphylaxis Uncoded 09/07/17 17:11 nutmeg Allergy Unknown Uncoded 09/07/17 17:11 spices Allergy Unknown Uncoded 09/07/17 17:11 Review of Systems ROS Other: All systems not noted in ROS Statement are negative. <Jose R Anderson - Last Filed: 09/07/17 21:00> ROS Other: All systems not noted in ROS Statement are negative. <Alix Flanagan - Last Filed: 09/08/17 07:55> ROS Statement: Those systems with pertinent positive or pertinent negative responses have been documented in the HPI. Past Medical History Past Medical History: No Reported History Additional Past Medical History / Comment(s): heart murmur, ectopic. 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, one ectopic requiring x-lap with removal of fallopian tube, iron defeciency anemia History of Any Multi-Drug Resistant Organisms: MRSA Date of last positivie culture/infection: 2010 MDRO Source:: Left Knee Past Surgical History: No Surgical Hx Reported Additional Past Surgical History / Comment(s): tube removal, lumpectomy from neck D&C Past Psychological History: Anxiety, Bipolar, Depression Smoking Status: Former smoker Past Alcohol Use History: Occasional Past Drug Use History: None Reported <Alix Flanagan - Last Filed: 09/08/17 07:55> General Exam <Jose R Anderson - Last Filed: 09/07/17 21:00> Limitations: no limitations General appearance: alert, in no apparent distress Head exam: Present: atraumatic, normocephalic, normal inspection Eye exam: Present: normal appearance, PERRL, EOMI. Absent: scleral icterus, conjunctival injection, periorbital swelling ENT exam: Present: normal exam, mucous membranes moist Neck exam: Present: normal inspection. Absent: tenderness, meningismus, lymphadenopathy Respiratory exam: Present: normal lung sounds bilaterally. Absent: respiratory distress, wheezes, rales, rhonchi, stridor Cardiovascular Exam: Present: regular rate, normal rhythm, normal heart sounds. Absent: systolic murmur, diastolic murmur, rubs, gallop, clicks GI/Abdominal exam: Present: soft, tenderness (Minimal right lower quadrant tenderness), normal bowel sounds. Absent: distended, guarding, rebound, rigid Speculum exam: Present: vaginal bleeding (scant bleeding, Right tenderness). Absent: normal speculum exam By manual exam: Present: cervical motion tenderness (minimal), adnexal tenderness (right). Absent: normal by manual exam Extremities exam: Present: normal inspection, full ROM, normal capillary refill. Absent: tenderness, pedal edema, joint swelling, calf tenderness Back exam: Present: normal inspection Neurological exam: Present: alert, oriented X3, CN II-XII intact Psychiatric exam: Present: normal affect, normal mood Skin exam: Present: warm, dry, intact, normal color. Absent: rash <Alix Flanagan - Last Filed: 09/08/17 07:55> - General Exam Comments Initial Comments: 27-year-old female. Alert and oriented. No acute distress. (Alix Flanagan) Vital Signs 09/07/17 09/07/17 17:12 21:24 Temperature 99.0 F 99.3 F Pulse Rate 90 88 Respiratory 18 18 Rate Blood Pressure 115/59 128/81 O2 Sat by Pulse 100 97 Oximetry Medical Decision Making - Lab Data Result diagrams: 09/07/17 19:20 <Jose R Anderson - Last Filed: 09/07/17 21:00> - Lab Data Result diagrams: 09/07/17 19:20 - Radiology Data Radiology results: report reviewed <Alix Flanagan - Last Filed: 09/08/17 07:55> - Medical Decision Making 27-year-old female presents to the emergency department with right lower quadrant abdominal pain. She found out she was recently . Concern for ectopic . She did have a left will be in tube removal by Dr. Valle. Patient is a patient. Patient ultrasound showed evidence of vascular mass on the right ovary. HCG is 193. Blood type is A positive. SHe has some minimal vaginal bleeding, and right adnexal tenderness. Discussed case with Dr. Dangelo, whom is functional support analyst for Dr. Valle. Recommends repeat hcg and follow up in office tomorrow. No methotrexate or further intervention at this time. Given Rx for repeat hcg. Patient informed of care plan, agrees to call Dr. Valle. She also complains of dental pain after wisdom teeth removal. I believe patient has canker sores, and likely dry socket .She follows with her oral surgeon on Thursday. (Alix Flanagan) - Lab Data Lab Results 09/07/17 09/07/17 09/07/17 Range/Units 19:10 19:20 19:20 WBC 9.7 (3.8-10.6) k/uL RBC 4.47 (3.80-5.40) m/uL Hgb 11.0 L (11.4-16.0) gm/dL Hct 34.2 (34.0-46.0) % MCV 76.5 L (80.0-100.0) fL MCH 24.7 L (25.0-35.0) pg MCHC 32.2 (31.0-37.0) g/dL RDW 16.9 H (11.5-15.5) % Plt Count 460 H (150-450) k/uL Neutrophils % 70 % Lymphocytes % 22 % Monocytes % 5 % Eosinophils % 2 % Basophils % 0 % Neutrophils # 6.8 (1.3-7.7) k/uL Lymphocytes # 2.1 (1.0-4.8) k/uL Monocytes # 0.5 (0-1.0) k/uL Eosinophils # 0.2 (0-0.7) k/uL Basophils # 0.0 (0-0.2) k/uL Anisocytosis Slight Microcytosis Slight HCG, Quant mIU/mL Urine Color Light Yellow Urine Appearance Clear (Clear) Urine pH 5.0 (5.0-8.0) Ur Specific [place] 1.011 (1.001-1.035) Urine Protein Negative (Negative) Urine Glucose (UA) Negative (Negative) Urine Ketones 1+ H (Negative) Urine Blood Small H (Negative) Urine Nitrite Negative (Negative) Urine Bilirubin Negative (Negative) Urine Urobilinogen <2.0 (<2.0) mg/dL Ur Leukocyte Esterase Small H (Negative) Urine RBC 1 (0-5) /hpf Urine WBC 2 (0-5) /hpf Ur Squamous Epith Cells 4 (0-4) /hpf Urine Mucus Rare H (None) /hpf Trichomonas Ag (Rapid) (Negative) Blood Type A Positive Blood Type Recheck No 09/07/17 09/07/17 Range/Units 19:20 21:05 WBC (3.8-10.6) k/uL RBC (3.80-5.40) m/uL Hgb (11.4-16.0) gm/dL Hct (34.0-46.0) % MCV (80.0-100.0) fL MCH (25.0-35.0) pg MCHC (31.0-37.0) g/dL RDW (11.5-15.5) % Plt Count (150-450) k/uL Neutrophils % % Lymphocytes % % Monocytes % % Eosinophils % % Basophils % % Neutrophils # (1.3-7.7) k/uL Lymphocytes # (1.0-4.8) k/uL Monocytes # (0-1.0) k/uL Eosinophils # (0-0.7) k/uL Basophils # (0-0.2) k/uL Anisocytosis Microcytosis HCG, Quant 193.9 mIU/mL Urine Color Urine Appearance (Clear) Urine pH (5.0-8.0) Ur Specific [place] (1.001-1.035) Urine Protein (Negative) Urine Glucose (UA) (Negative) Urine Ketones (Negative) Urine Blood (Negative) Urine Nitrite (Negative) Urine Bilirubin (Negative) Urine Urobilinogen (<2.0) mg/dL Ur Leukocyte Esterase (Negative) Urine RBC (0-5) /hpf Urine WBC (0-5) /hpf Ur Squamous Epith Cells (0-4) /hpf Urine Mucus (None) /hpf Trichomonas Ag (Rapid) Negative (Negative) Blood Type Blood Type Recheck - Radiology Data No Intrauterine gestational sac. Vascular area on right ivar measures 2 by 1.5cm. Possible of early ectopic , and follow up recommended. ( Alix Flanagan) Disposition <Jose R Anderson - Last Filed: 09/07/17 21:00> Is patient prescribed a controlled substance at d/c from ED?: No If prescribed controlled substance>3 days was MAPS reviewed?: No When asked, does pt state using other controlled substances?: No Time of Disposition: 21:19 <Alix Flanagan - Last Filed: 09/08/17 07:55> Clinical Impression: Dry socket, Threatened miscarriage in early , Abnormal US Disposition: HOME SELF-CARE Condition: Good Instructions: Ectopic (ED) Additional Instructions: Patient advised to follow-up tomorrow with Dr. Lu. The need to repeat her lab work in 2 days in regards to the hCG levels. Patient could take pain medication as previously prescribed for the dental pain. Recommended following up with her dental clinic. Return to the emergency department if any alarming signs or symptoms occur. Referrals: Nasir Thompson DO [Primary Care Provider] - 1-2 days Saleem Valle DO [Doctor of Osteopathic Medicine] - 1-2 days
--- NOTE | 2017-09-07 20:25 | US ---
EXAMINATION TYPE: Transabdominal DATE OF EXAM: 07/21/17 COMPARISON: NONE CLINICAL HISTORY: Pain. Bleeding and right pelvic pain x 3 hours, + home test 3 days ago, g ravida 5, miscarriage 3, ectopic 1, surgery required with previous ectopic resulting in left fallopia n tube removed. EXAM PERFORMED: Transvaginal (TV) and Transabdominal (TA) EXAM MEASUREMENTS: GESTATIONAL AGE / DATING Physician Established: Not established yet Dates by LMP: (4 weeks/3 days) EDC: 05/14/2018 Dates by First Scan: This is 1st scan Dates by Current Scan for: No IUP seen at this time MATERNAL ANATOMY Uterus: 6.7 x 4.6 x 5.0cm, retroflexed Right Ovary: 4.5 x 2.3 x 2.9cm Left Ovary: 3.1 x 1.7 x 1.8cm, small 1.4cm simple appears cyst Post CDS / Adnexa: free fluid right adnexa Presence of free fluid: yes Presence of corpus luteal cyst: right ovary: 2.0 x 1.6 x 1.8cm hypoechoic area with peripheral vascul arity, possible corpus luteum Presence of subchorionic bleed: no GESTATION / SURVEY IUP: No IUP seen at this time Date of LMP: 08/07/2017 Beta HcG (if available): Not available at time of exam IMPRESSION: No intrauterine gestational sac. Vascular area on the right ovary that measures 2 x 1.5 cm. It is pos sible this could be an early ectopic and follow-up is recommended.
[2017-09-07] MEDS ORDERED: LIDOCAINE VISCOUS 2% 15 ML CUP MUCOUS MEM ONE (21:04)
[2017-09-07 21:25] VITALS: BP 128/81; PULSE 88; TEMP 99.3
[2017-09-08 15:15] LABS: C. trachomatis,PCR Negative (Neg,Equiv); Chlamydia trachomatis Source Cervix; N. gonorrhoeae,PCR Negative (Neg,Equiv); Neisseria Source Cervix
== END 2017-09-07 21:38 | disposition home or self-care (01) ==
LOC: EC 16:00
DX: O20.0 Threatened abortion (principal); O28.3 Abnormal ultrasonic finding on antenatal screening of mother; O99.89 Other specified diseases and conditions complicating pregnancy, childbirth and the puerperium; M27.3 Alveolitis of jaws; Z67.10 Type A blood, Rh positive; O99.111 Other diseases of the blood and blood-forming organs and certain disorders involving the immune mechanism complicating pregnancy, first trimester; D50.9 Iron deficiency anemia, unspecified; Z87.891 Personal history of nicotine dependence; Z79.899 Other long term (current) drug therapy; Z88.5 Allergy status to narcotic agent; Z88.6 Allergy status to analgesic agent; Z88.8 Allergy status to other drugs, medicaments and biological substances; Z91.018 Allergy to other foods; Z86.14 Personal history of Methicillin resistant Staphylococcus aureus infection; Z90.721 Acquired absence of ovaries, unilateral; Z90.79 Acquired absence of other genital organ(s); Z3A.01 Less than 8 weeks gestation of pregnancy
CPT/HCPCS: 36415; 76801; 76817; 81001; 84702; 85025; 86900; 86901; 87070; 87205; 87491; 87591; 87808; 96360; 99284

== ENCOUNTER → 2017-09-09 | Outpatient (CLI) | payer OTHER | END | disposition home or self-care (01) | LOC: LABWHC1 16:15 | PROVIDERS: ATTEND Physician Assistant Medical | DX: O20.0 Threatened abortion (principal); Z3A.00 Weeks of gestation of pregnancy not specified | CPT/HCPCS: 36415; 84702 ==

== ENCOUNTER 2017-09-11 14:09 | Emergency (ER) | payer OTHER ==
[2017-09-11 14:30] VITALS: BP 111/62; PULSE 85; RESP 18; TEMP 98.7
[2017-09-11] MEDS ORDERED: METHOTREXATE SODIUM (PF) 25 MG/ML 2 ML VIAL IM STA ×2 (14:55→15:13)
--- NOTE | 2017-09-11 15:20 | ED ---
General Adult HPI - General Chief complaint: Recheck/Abnormal Lab/Rx Stated complaint: sent by OB Time Seen by Provider: 09/11/17 14:42 Source: patient, RN notes reviewed Mode of arrival: ambulatory Limitations: no limitations - History of Present Illness Initial comments: 27-year-old female presents to the emergency department for a chief complaint of miscarriage. Patient states she was seen in the emergency department four days ago for miscarriage. She states she has had 5 in the past including an ectopic . Patient states she saw her doctor today and since she is having pain in the right lower quadrant as well as signs of a miscarriage she needs a shot of methotrexate and lab work drawn. Patient has a prescription for the methotrexate and lab work. Patient is currently experiencing mild bleeding and right lower quadrant pain. Patient states she is certain it is not a ruptured ectopic because she has had that before and the pain is not nearly as severe. Patient denies any feelings of dizziness or faintness. Patient has no other complaints at this time including shortness of breath, chest pain, abdominal pain, nausea or vomiting, headache, or visual changes. - Related Data Home Medications Medication Instructions Recorded Confirmed Amoxicillin 500 mg PO Q8H 09/07/17 09/11/17 Ferrous Sulfate [Feosol] 325 mg PO BID 09/07/17 09/11/17 Ibuprofen [Motrin] 600 mg PO Q8HR PRN 09/07/17 09/11/17 HYDROcodone/APAP 5-325MG [[place] 1 tab PO TID PRN 09/11/17 09/11/17 5-325] Allergies Allergy/AdvReac Type Severity Reaction Status Date / Time aspirin Allergy Rash/Hives Verified 09/11/17 14:45 cinnamon Allergy Anaphylaxis Verified 09/11/17 14:45 molasses Allergy Unknown Verified 09/11/17 14:45 amphetamine aspartate AdvReac Confusion Verified 09/11/17 14:45 [From Adderall] amphetamine sulfate AdvReac Confusion Verified 09/11/17 14:45 [From Adderall] benztropine mesylate AdvReac Hallucinati Verified 09/11/17 14:45 [From Cogentin] ons codeine AdvReac Hallucinati Verified 09/11/17 14:45 ons dextroamphetamine saccharate AdvReac Confusion Verified 09/11/17 14:45 [From Adderall] dextroamphetamine sulfate AdvReac Confusion Verified 09/11/17 14:45 [From Adderall] lamotrigine [From Lamictal] AdvReac Rash/Hives Verified 09/11/17 14:45 [place] Allergy Anaphylaxis Uncoded 09/11/17 14:30 nutmeg Allergy Unknown Uncoded 09/11/17 14:30 spices Allergy Unknown Uncoded 09/11/17 14:30 Review of Systems ROS Statement: Those systems with pertinent positive or pertinent negative responses have been documented in the HPI. ROS Other: All systems not noted in ROS Statement are negative. Past Medical History Past Medical History: No Reported History Additional Past Medical History / Comment(s): heart murmur, ectopic. 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, one ectopic requiring x-lap with removal of fallopian tube, iron defeciency anemia History of Any Multi-Drug Resistant Organisms: MRSA Date of last positivie culture/infection: 2010 MDRO Source:: Left Knee Past Surgical History: No Surgical Hx Reported Additional Past Surgical History / Comment(s): tube removal, lumpectomy from neck D&C Past Psychological History: Anxiety, Bipolar, Depression Smoking Status: Former smoker Past Alcohol Use History: Occasional Past Drug Use History: None Reported General Exam Limitations: no limitations General appearance: alert, in no apparent distress Eye exam: Present: normal appearance, PERRL, EOMI. Absent: scleral icterus, conjunctival injection, periorbital swelling Neck exam: Present: normal inspection Respiratory exam: Present: normal lung sounds bilaterally. Absent: respiratory distress, wheezes, rales, rhonchi, stridor Cardiovascular Exam: Present: regular rate, normal rhythm, normal heart sounds. Absent: systolic murmur, diastolic murmur, rubs, gallop, clicks GI/Abdominal exam: Present: soft, tenderness (mild tenderness RLQ), normal bowel sounds. Absent: distended, guarding, rebound, rigid External exam: Present: other (Patient refused) Speculum exam: Present: other (patient refused) Course Vital Signs 09/11/17 14:28 Temperature 98.7 F Pulse Rate 85 Respiratory 18 Rate Blood Pressure 111/62 O2 Sat by Pulse 99 Oximetry Medical Decision Making - Medical Decision Making 27 -year-old female presents to the emergency determine for a medication administration. Patient states she is currently having a miscarriage and has right lower quadrant pain. Patient was seen in the emergency department 4 days ago and then followed up with her [facility]. They wrote her a prescription for methotrexate. Patient states she had to come here because they do not have the medication in office and the outpatient lab was closed. Patient has a prescription for methotrexate 50 mg/m and outpatient labs including BUN, creatinine, AST, ALTs from Dr. Marshall due to concern for ectopic. Patient states she is in a hurry and refuses the lab work ordered by Dr. Valle but wants the methotrexate shot. Patient has a history of 5 miscarriages and is currently having symptoms of one now including bleeding and mild cramping. HCG is not climbing as expected. On exam patient has mild right lower quadrant tenderness. The rest of the exam is unremarkable. I discussed the patient that it is necessary to do a workup at this point to rule out ruptured ectopic including bloodwork, a pelvic exam and ultrasound. Patient became upset and frustrated and refuses these things. She states she has gone through his before and she knows that it is not a ruptured ectopic. She states it is not nearly as painful as a ruptured ectopic. Patient also refuses the outpatient lab and additional blood work. Patient was given her shot of MTX. She will return if she has any worsening symptoms. Otherwise she will follow-up with the [facility]. Disposition Clinical Impression: Medication administered Disposition: HOME SELF-CARE Condition: Good Instructions: Ectopic (ED) Additional Instructions: Please follow up with OBGYN in 1-2 days. Please return to the emergency department if you have any worsening symptoms Is patient prescribed a controlled substance at d/c from ED?: No Referrals: Nasir Thompson DO [Primary Care Provider] - 1-2 days Time of Disposition: 15:20
== END 2017-09-11 15:47 | disposition home or self-care (01) ==
LOC: EC 14:09
DX: R10.31 Right lower quadrant pain (principal); N93.9 Abnormal uterine and vaginal bleeding, unspecified; Z87.891 Personal history of nicotine dependence; Z86.14 Personal history of Methicillin resistant Staphylococcus aureus infection; Z79.899 Other long term (current) drug therapy; Z88.6 Allergy status to analgesic agent; Z91.018 Allergy to other foods; Z88.8 Allergy status to other drugs, medicaments and biological substances; Z88.5 Allergy status to narcotic agent
CPT/HCPCS: 99283; J9260

== ENCOUNTER → 2017-09-11 | Outpatient (CLI) | payer OTHER ==
[2017-09-11 09:59] LABS: Anisocytosis Slight; HCT 33.7 % (34.0-46.0); HGB 10.8 gm/dL (11.4-16.0); Hypochromasia Slight; MCH 25.3 pg (25.0-35.0); MCHC 32.1 g/dL (31.0-37.0); MCV 78.8 fL (80.0-100.0); Mean Platelet Volume 5.9; Microcytosis Slight; Platelet Count 489 k/uL (150-450); RBC 4.28 m/uL (3.80-5.40); RDW 16.5 % (11.5-15.5)
== END | disposition home or self-care (01) ==
LOC: LABWHC1 09:38
PROVIDERS: ATTEND Obstetrics & Gynecology
DX: O03.9 Complete or unspecified spontaneous abortion without complication (principal)
CPT/HCPCS: 36415; 84702; 85027

== ENCOUNTER → 2017-11-10 | Outpatient (CLI) | payer OTHER | END | disposition home or self-care (01) | LOC: LABWHC1 10:56 | PROVIDERS: ATTEND Obstetrics & Gynecology | DX: Z34.90 Encounter for supervision of normal pregnancy, unspecified, unspecified trimester (principal); Z3A.00 Weeks of gestation of pregnancy not specified | CPT/HCPCS: 36415; 84702 ==

== ENCOUNTER → 2017-11-12 | Outpatient (CLI) | payer OTHER | END | disposition home or self-care (01) | LOC: LABWHC1 11:24 | PROVIDERS: ATTEND Obstetrics & Gynecology | DX: Z34.90 Encounter for supervision of normal pregnancy, unspecified, unspecified trimester (principal) | CPT/HCPCS: 36415; 84702 ==

== ENCOUNTER → 2017-11-24 | Outpatient (CLI) | payer OTHER ==
--- NOTE | 2017-11-24 14:12 | US ---
EXAMINATION TYPE: Transabdominal DATE OF EXAM: 07/21/17 COMPARISON: NONE CLINICAL HISTORY: O26.891 Pelvic pain during preg,O00.90 Etopic preg. Pt states pelvic pain, history of left ectopic with left fallopian tube removed EXAM PERFORMED: Transvaginal (TV) and Transabdominal (TA) EXAM MEASUREMENTS: GESTATIONAL AGE / DATING Physician Established: (6 weeks/3 days) EDC: 07/17/2018 Dates by LMP: (6 weeks/3 days) EDC: 07/17/2018 Dates by First Scan: No prior Dates by Current Scan for: (6 weeks/4 days) EDC: 07/16/2018 MATERNAL ANATOMY Uterus: 7.9 x 4.7 x 6.5 cm Right Ovary: 3.7 x 1.6 x 2.6 cm Left Ovary: 4.4 x 2.3 x 2.8 cm Post CDS / Adnexa: wnl Presence of free fluid: No Presence of corpus luteal cyst: Right ovary= 1.7 x 1.1 x 1.3 cm/ Left ovary= 1.8 x 1.7 x 1.8 cm/ pt s tates she is on hormones Presence of subchorionic bleed: No GESTATION / SURVEY CRL: 0.7 cm (6 weeks/4 days) MSD: wnl Yolk Sac (normal less than 6mm): 3mm Heart Rate: 126 bpm Rhythm: Normal IUP: Viable IUP Date of LMP: 10/10/2017 Single, viable IUP/ No evidence of ectopic/heterotopic at this time/ Possible corpus lute al cysts bilaterally Results called to Dr. Valle at time of exam IMPRESSION: 1. Single intrauterine gestation estimated at 6 weeks 4 days gestation based on crown-rump length. Ca rdiac activity averages 126 bpm. 2. Bilateral follicles. Cysts are present on the ovaries discussed above.
== END | disposition home or self-care (01) ==
LOC: RADUSWWP 13:13
PROVIDERS: ATTEND Obstetrics & Gynecology
DX: O34.81 Maternal care for other abnormalities of pelvic organs, first trimester (principal); N83.202 Unspecified ovarian cyst, left side; N83.201 Unspecified ovarian cyst, right side; Z3A.01 Less than 8 weeks gestation of pregnancy
CPT/HCPCS: 76801; 76817

== ENCOUNTER 2017-12-16 14:40 | Emergency (ER) | payer OTHER ==
[2017-12-16 14:50] VITALS: BP 113/72; PULSE 89; TEMP 98.2
[2017-12-16] MEDS ORDERED: SODIUM CHLORIDE 0.9% 1,000 ML IV ONE (16:08)
[2017-12-16 16:31] LABS: Basophils % (A) 0 %; Eosinophils # (A) 0.3 k/uL (0-0.7); Eosinophils % (A) 3 %; HCT 38.7 % (34.0-46.0); HGB 12.4 gm/dL (11.4-16.0); Lymphocytes # (A) 1.7 k/uL (1.0-4.8); Lymphocytes % (A) 16 %; MCH 26.2 pg (25.0-35.0); MCV 81.9 fL (80.0-100.0); Mean Platelet Volume 6.3; Monocytes # (A) 0.6 k/uL (0-1.0); Monocytes % (A) 6 %; Neutrophils # (A) 7.5 k/uL (1.3-7.7); Neutrophils % (A) 73 %; Platelet Count 359 k/uL (150-450); RBC 4.73 m/uL (3.80-5.40); RDW 15.8 % (11.5-15.5); WBC 10.2 k/uL (3.8-10.6)
[2017-12-16 16:43] LABS: ALT 30 U/L (9-52); AST 24 U/L (14-36); Albumin 4.1 g/dL (3.5-5.0); Alkaline Phosphatase 88 U/L (38-126); Anion Gap 11 mmol/L; Blood Urea Nitrogen 8 mg/dL (7-17); Calcium 9.7 mg/dL (8.4-10.2); Carbon Dioxide 23 mmol/L (22-30); Chloride 102 mmol/L (98-107); Glucose 89 mg/dL (74-99); Potassium 4.5 mmol/L (3.5-5.1); Sodium 136 mmol/L (137-145); Total Bilirubin 0.4 mg/dL (0.2-1.3); Total Protein 7.3 g/dL (6.3-8.2)
--- NOTE | 2017-12-16 17:34 | US ---
EXAMINATION TYPE: Transabdominal DATE OF EXAM: 07/21/17 COMPARISON: NONE CLINICAL HISTORY: well check, headache; hyperemesis per EC PA; EXAM PERFORMED: Transabdominal (TA) EXAM MEASUREMENTS: GESTATIONAL AGE / DATING Physician Established: ( 9 weeks/4 days) EDC: 07/17/2018 Dates by LMP: (9 weeks/4 days) EDC: 07/17/2018 Dates by First Scan: (9 weeks/5 days) EDC: 07/16/2018 Dates by Current Scan for: (10 weeks/0 days) EDC: 07/14/2018 MATERNAL ANATOMY Uterus: retroverted = 9.6 x 8.5 x 5.7cm Right Ovary: 3.2 x 1.9 x 2.0cm Left Ovary: not seen due to overlying bowel gas Post CDS / Adnexa: wnl Presence of free fluid: no Presence of corpus luteal cyst: not identified Presence of subchorionic bleed: no GESTATION / SURVEY CRL: 3.1cm (10 weeks/0 days) Yolk Sac (normal less than 6mm): not seen Heart Rate: 175 bpm Rhythm: Normal IUP: single Date of LMP: 10/10/2017 Beta HcG (if available): NA Single, live IUP, 10 weeks/0 days, EDC: 07/14/2018, HR 175bpm IMPRESSION: The ultrasound gestational age is 10 weeks. The ELOY is 07/14/2018. No complicating process seen.
[2017-12-16] MEDS ORDERED: PYRIDOXINE 50 MG TAB PO STA (17:56)
[2017-12-16 17:57] VITALS: RESP 16
--- NOTE | 2017-12-16 18:02 | ED ---
Nausea/Vomiting/Diarrhea HPI - General Chief complaint: Nausea/Vomiting/Diarrhea Stated complaint: Headache Time Seen by Provider: 12/16/17 16:08 Source: patient Mode of arrival: ambulatory Limitations: no limitations - History of Present Illness Initial comments: This a 27-year-old female [id number] [address] Valle for OBGYN with history of numerous spontaneous miscarriages who presents today for nausea or vomiting. Pt denies any abdominal pain/cramping or vaginal bleeding. Patient states that she has had constant vomiting since 8 PM last night. Denies hemoptysis. She tried to go to work this morning however she continued to have episodes of vomiting. She called her HY[employer]OE[employer]IC [employer]ATION CHIEF who told her to come to emergency department for evaluation of dehydration. Patient denies any episodes of vomiting in the waiting room. However she states that she is still feeling nauseous. Patient denies chest pain, shortness of breath, fever, chills , lower extremity edema, visual changes, dizziness, palpitations or any other symptoms. Patient states that she is feeling fine overall however she continues to vomit. Remainder ROS is negative - Related Data Home Medications Medication Instructions Recorded Confirmed Amoxicillin 500 mg PO Q8H 09/07/17 09/11/17 Ferrous Sulfate [Feosol] 325 mg PO BID 09/07/17 09/11/17 Ibuprofen [Motrin] 600 mg PO Q8HR PRN 09/07/17 09/11/17 HYDROcodone/APAP 5-325MG [[place] 1 tab PO TID PRN 09/11/17 09/11/17 5-325] Previous Rx's Medication Instructions Recorded Doxylamine Succinate/Vit B6 2 tab PO HS PRN 4 Days #8 tab.ir. 12/16/17 [Bonjesta ER 20-20 mg Tablet] Allergies Allergy/AdvReac Type Severity Reaction Status Date / Time aspirin Allergy Rash/Hives Verified 12/16/17 14:49 cinnamon Allergy Anaphylaxis Verified 12/16/17 14:49 molasses Allergy Unknown Verified 12/16/17 14:49 amphetamine aspartate AdvReac Confusion Verified 12/16/17 14:49 [From Adderall] amphetamine sulfate AdvReac Confusion Verified 12/16/17 14:49 [From Adderall] benztropine mesylate AdvReac Hallucinati Verified 12/16/17 14:49 [From Cogentin] ons codeine AdvReac Hallucinati Verified 12/16/17 14:49 ons dextroamphetamine saccharate AdvReac Confusion Verified 12/16/17 14:49 [From Adderall] dextroamphetamine sulfate AdvReac Confusion Verified 12/16/17 14:49 [From Adderall] lamotrigine [From Lamictal] AdvReac Rash/Hives Verified 12/16/17 14:49 BROWN [place]GAR Allergy Anaphylaxis Uncoded 12/16/17 14:49 nutmeg Allergy Unknown Uncoded 12/16/17 14:49 spices Allergy Unknown Uncoded 12/16/17 14:49 Review of Systems ROS Statement: Those systems with pertinent positive or pertinent negative responses have been documented in the HPI. ROS Other: All systems not noted in ROS Statement are negative. Past Medical History Past Medical History: No Reported History Additional Past Medical History / Comment(s): heart murmur, ectopic. 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, one ectopic requiring x-lap with removal of fallopian tube, iron defeciency anemia History of Any Multi-Drug Resistant Organisms: MRSA Date of last positivie culture/infection: 2010 MDRO Source:: Left Knee Past Surgical History: No Surgical Hx Reported Additional Past Surgical History / Comment(s): tube removal, lumpectomy from neck D&C Past Psychological History: Anxiety, Bipolar, Depression Smoking Status: Former smoker Past Alcohol Use History: Occasional Past Drug Use History: None Reported General Exam - General Exam Comments Initial Comments: General: The patient is awake and alert, in no distress, and does not appear acutely ill. Eye: Pupils are equal, extra-ocular movements are intact. No nystagmus. There is normal conjunctiva bilaterally. No signs of icterus. Ears, nose, mouth and throat: There are moist mucous membranes and no oral lesions. Neck: The neck is supple, there is no tenderness or JVD. Cardiovascular: There is a regular rate and rhythm. No murmur, rub or gallop is appreciated. Respiratory: Lungs are clear to auscultation, respirations are non-labored, breath sounds are equal. No wheezes, stridor, rales, or rhonchi. Musculoskeletal: Normal ROM, no tenderness. Strength 5/5. Sensation intact. Pulses equal bilaterally 2+. Neurological: A&O x 3. CN II-XII intact, There are no obvious motor or sensory deficits. Coordination appears grossly intact. Speech is normal. Skin: Skin is warm and dry and no rashes or lesions are noted. No LE edema. Skin turgor instant recoill. Psychiatric: Cooperative, appropriate mood & affect, normal judgment. Limitations: no limitations Course Vital Signs 12/16/17 12/16/17 14:47 16:49 Temperature 98.2 F Pulse Rate 89 Respiratory 18 16 Rate Blood Pressure 113/72 O2 Sat by Pulse 99 Oximetry Medical Decision Making - Medical Decision Making Pt arrived appearing well. CMP, CBC obtained revealing no signs of dehydration BUN WNL and no electrolyte derangements. Pt given 1,000 mL bolus of fluids. After 2 hours in ER without signs of emesis pt was PO challenged she did have one episode of vomiting. Pt given b6 for nausea. U/S obtained to check baby although pt adamantly denied abdominal pain, cramping or vaginal bleeding. Pt US revealed what appeared to be 10wk with viable IUP, HR 175bpm. Pt did not have an additional episodes of emesis. Case discussd with Dr. Esparza. At this time we feel pt is stable for d/c with OBGYN f/u and rx for degclius for nausea and vomiting in . Pt agreed with plan, d/c in stable condition. - Lab Data Result diagrams: 12/16/17 15:20 12/16/17 15:20 Lab Results 12/16/17 12/16/17 Range/Units 15:20 15:20 WBC 10.2 (3.8-10.6) k/uL RBC 4.73 (3.80-5.40) m/uL Hgb 12.4 (11.4-16.0) gm/dL Hct 38.7 (34.0-46.0) % MCV 81.9 (80.0-100.0) fL MCH 26.2 (25.0-35.0) pg MCHC 32.0 (31.0-37.0) g/dL RDW 15.8 H (11.5-15.5) % Plt Count 359 (150-450) k/uL Neutrophils % 73 % Lymphocytes % 16 % Monocytes % 6 % Eosinophils % 3 % Basophils % 0 % Neutrophils # 7.5 (1.3-7.7) k/uL Lymphocytes # 1.7 (1.0-4.8) k/uL Monocytes # 0.6 (0-1.0) k/uL Eosinophils # 0.3 (0-0.7) k/uL Basophils # 0.0 (0-0.2) k/uL Sodium 136 L (137-145) mmol/L Potassium 4.5 (3.5-5.1) mmol/L Chloride 102 (98-107) mmol/L Carbon Dioxide 23 (22-30) mmol/L Anion Gap 11 mmol/L BUN 8 (7-17) mg/dL Creatinine 0.46 L (0.52-1.04) mg/dL Est GFR (CKD-EPI)AfAm >90 (>60 ml/min/1.73 sqM) Est GFR (CKD-EPI)NonAf >90 (>60 ml/min/1.73 sqM) Glucose 89 (74-99) mg/dL Calcium 9.7 (8.4-10.2) mg/dL Total Bilirubin 0.4 (0.2-1.3) mg/dL AST 24 (14-36) U/L ALT 30 (9-52) U/L Alkaline Phosphatase 88 (38-126) U/L Total Protein 7.3 (6.3-8.2) g/dL Albumin 4.1 (3.5-5.0) g/dL Disposition Clinical Impression: Nausea and vomiting during prior to 22 weeks gestation Disposition: HOME SELF-CARE Condition: Good Instructions: Nausea and Vomiting in (ED) Prescriptions: Doxylamine Succinate/Vit B6 [Bonjesta ER 20-20 mg Tablet] 2 tab PO HS PRN 4 Days #8 tab.ir.dr PRN Reason: Nausea Is patient prescribed a controlled substance at d/c from ED?: No Referrals: Nasir Thompson DO [Primary Care Provider] - 1-2 days Saleem Valle DO [Doctor of Osteopathic Medicine] - 1-2 days Time of Disposition: 18:44
== END 2017-12-16 19:10 | disposition home or self-care (01) ==
LOC: EC 14:40
DX: O21.0 Mild hyperemesis gravidarum (principal); O99.89 Other specified diseases and conditions complicating pregnancy, childbirth and the puerperium; R51 Headache; Z3A.10 10 weeks gestation of pregnancy; Z87.891 Personal history of nicotine dependence; Z86.14 Personal history of Methicillin resistant Staphylococcus aureus infection; Z79.899 Other long term (current) drug therapy; Z88.5 Allergy status to narcotic agent; Z88.6 Allergy status to analgesic agent; Z88.8 Allergy status to other drugs, medicaments and biological substances; Z91.018 Allergy to other foods; Z91.048 Other nonmedicinal substance allergy status
CPT/HCPCS: 36415; 76801; 80053; 85025; 96360; 99284

== ENCOUNTER 2018-01-10 07:34 | Emergency (ER) | payer OTHER ==
[2018-01-10 08:17] LABS: Appearance,Urine Clear (Clear); Bilirubin,Urine Negative (Negative); Blood,Urine Negative (Negative); Color,Urine Light Yellow; Glucose,Urine (UA) Negative (Negative); Ketones,Urine Negative (Negative); Leukocyte Esterase,Urine Negative (Negative); Nitrite,Urine Negative (Negative); Protein,Urine Negative (Negative); Specific Gravity,Urine 1.011 (1.001-1.035); Urobilinogen,Urine <2.0 mg/dL (<2.0)
--- NOTE | 2018-01-10 08:36 | ED ---
General Adult HPI - General Chief complaint: Abdominal Pain Stated complaint: 14wks preg, cramping Time Seen by Provider: 01/10/18 07:45 Source: patient, RN notes reviewed Mode of arrival: ambulatory Limitations: no limitations - History of Present Illness Initial comments: Patient 27-year-old female presented to the emergency room today with a chief complaint of abdominal pain. Patient is proximal August 14 weeks . She has had an ultrasound of this at 10 weeks. She denies any vaginal bleeding or discharge. She says some cramping in the middle portion of the abdomen over the last few days. She states she called on-call REGISTERED DIETICIAN advised come here to the emergency room. Patient has had 5 previous pregnancies. She states one ectopic and 4 miscarriages. She states this is the first that she has been. Patient denies any other complaints or symptoms. Patient denies any recent fever, chills, shortness of breath, chest pain, back pain, headaches or visual changes, or any other complaints. - Related Data Home Medications Medication Instructions Recorded Confirmed Amoxicillin 500 mg PO Q8H 09/07/17 09/11/17 Ferrous Sulfate [Feosol] 325 mg PO BID 09/07/17 09/11/17 Ibuprofen [Motrin] 600 mg PO Q8HR PRN 09/07/17 09/11/17 HYDROcodone/APAP 5-325MG [[place] 1 tab PO TID PRN 09/11/17 09/11/17 5-325] Previous Rx's Medication Instructions Recorded Doxylamine Succinate/Vit B6 2 tab PO HS PRN 4 Days #8 tab.ir. 12/16/17 [Bonjesta ER 20-20 mg Tablet] Allergies Allergy/AdvReac Type Severity Reaction Status Date / Time aspirin Allergy Rash/Hives Verified 01/10/18 07:38 cinnamon Allergy Anaphylaxis Verified 01/10/18 07:38 molasses Allergy Unknown Verified 01/10/18 07:38 amphetamine aspartate AdvReac Confusion Verified 01/10/18 07:38 [From Adderall] amphetamine sulfate AdvReac Confusion Verified 01/10/18 07:38 [From Adderall] benztropine mesylate AdvReac Hallucinati Verified 01/10/18 07:38 [From Cogentin] ons codeine AdvReac Hallucinati Verified 01/10/18 07:38 ons dextroamphetamine saccharate AdvReac Confusion Verified 01/10/18 07:38 [From Adderall] dextroamphetamine sulfate AdvReac Confusion Verified 01/10/18 07:38 [From Adderall] lamotrigine [From Lamictal] AdvReac Rash/Hives Verified 01/10/18 07:38 BROWN [place]GAR Allergy Anaphylaxis Uncoded 01/10/18 07:38 nutmeg Allergy Unknown Uncoded 01/10/18 07:38 spices Allergy Unknown Uncoded 01/10/18 07:38 Review of Systems ROS Statement: Those systems with pertinent positive or pertinent negative responses have been documented in the HPI. ROS Other: All systems not noted in ROS Statement are negative. Past Medical History Past Medical History: No Reported History Additional Past Medical History / Comment(s): heart murmur, ectopic. 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, one ectopic requiring x-lap with removal of fallopian tube, iron defeciency anemia History of Any Multi-Drug Resistant Organisms: MRSA Date of last positivie culture/infection: 2010 MDRO Source:: Left Knee Past Surgical History: No Surgical Hx Reported Additional Past Surgical History / Comment(s): tube removal, lumpectomy from neck D&C Past Psychological History: Anxiety, Bipolar, Depression Smoking Status: Former smoker Past Alcohol Use History: Occasional Past Drug Use History: None Reported General Exam - General Exam Comments Initial Comments: General: The patient is awake and alert, in no distress, and does not appear acutely ill. Eye: Extra-ocular movements are intact. No nystagmus. There is normal conjunctiva bilaterally. No signs of icterus. Ears, nose, mouth and throat: There are moist mucous membranes and no oral lesions. Neck: The neck is supple, there is no tenderness or JVD. Cardiovascular: There is a regular rate and rhythm. No murmur, rub or gallop is appreciated. Respiratory: Lungs are clear to auscultation, respirations are non-labored, breath sounds are equal. No wheezes, stridor, rales, or rhonchi. Gastrointestinal: Abdomen soft on palpation. Patient has mild discomfort midline over umbilical. No rebound, guarding or CVA tenderness. Musculoskeletal: Normal ROM, no tenderness. Sensation intact. Neurological: A&O x 3. CN II-XII intact, There are no obvious motor or sensory deficits. Coordination appears grossly intact. Speech is normal. Skin: Skin is warm and dry and no rashes or lesions are noted. Psychiatric: Cooperative, appropriate mood & affect, normal judgment. Limitations: no limitations Course Vital Signs 01/10/18 07:34 Temperature 98 F Pulse Rate 98 Respiratory 18 Rate Blood Pressure 135/79 O2 Sat by Pulse 100 Oximetry Medical Decision Making - Medical Decision Making Patient's heart tones are in the 150s. Urinalysis reviewed and is unremarkable. Patient resting comfortably. Patient has mild to no tenderness on exam. Vitals are stable. Patient denies any vaginal bleeding or discharge. Patient's been instructed by her REGISTERED DIETICIAN that she should not have pelvic or transvaginal ultrasound. At this time patient will be discharged home to follow -up with her OB tomorrow in the office. He is advised return here to the emergency room symptoms increase worsen or for any other concerns. - Lab Data Lab Results 01/10/18 Range/Units 07:50 Urine Color Light Yellow Urine Appearance Clear (Clear) Urine pH 6.0 (5.0-8.0) Ur Specific [place] 1.011 (1.001-1.035) Urine Protein Negative (Negative) Urine Glucose (UA) Negative (Negative) Urine Ketones Negative (Negative) Urine Blood Negative (Negative) Urine Nitrite Negative (Negative) Urine Bilirubin Negative (Negative) Urine Urobilinogen <2.0 (<2.0) mg/dL Ur Leukocyte Esterase Negative (Negative) Disposition Clinical Impression: Abdominal pain in Disposition: HOME SELF-CARE Condition: Good Instructions: Abdominal Pain in (ED) Additional Instructions: Please follow-up see her REGISTERED DIETICIAN tomorrow as discussed. Please return here to emergency room if any symptoms increase worsen or for any other concerns. Is patient prescribed a controlled substance at d/c from ED?: No Referrals: Nasir Thompson DO [Primary Care Provider] - 1-2 days Time of Disposition: 08:36
[2018-01-10 08:44] VITALS: BP 126/72; PULSE 84; RESP 20; TEMP 98
== END 2018-01-10 08:43 | disposition home or self-care (01) ==
LOC: EC 07:34
DX: O99.89 Other specified diseases and conditions complicating pregnancy, childbirth and the puerperium (principal); R10.9 Unspecified abdominal pain; O99.112 Other diseases of the blood and blood-forming organs and certain disorders involving the immune mechanism complicating pregnancy, second trimester; D50.9 Iron deficiency anemia, unspecified; Z87.891 Personal history of nicotine dependence; Z88.5 Allergy status to narcotic agent; Z88.6 Allergy status to analgesic agent; Z88.8 Allergy status to other drugs, medicaments and biological substances; Z91.018 Allergy to other foods; Z79.899 Other long term (current) drug therapy; Z86.14 Personal history of Methicillin resistant Staphylococcus aureus infection; Z90.79 Acquired absence of other genital organ(s); Z3A.14 14 weeks gestation of pregnancy
CPT/HCPCS: 81003; 99284

== ENCOUNTER 2018-01-14 05:52 | Emergency (ER) | payer OTHER ==
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
[2018-01-14 06:50] LABS: Basophils # (A) 0.1 k/uL (0-0.2); Basophils % (A) 1 %; Eosinophils # (A) 0.4 k/uL (0-0.7); Eosinophils % (A) 4 %; HCT 35.8 % (34.0-46.0); HGB 11.7 gm/dL (11.4-16.0); Lymphocytes # (A) 1.9 k/uL (1.0-4.8); Lymphocytes % (A) 18 %; MCH 26.2 pg (25.0-35.0); MCHC 32.8 g/dL (31.0-37.0); Mean Platelet Volume 6.8; Monocytes # (A) 0.6 k/uL (0-1.0); Monocytes % (A) 6 %; Neutrophils # (A) 7.2 k/uL (1.3-7.7); Neutrophils % (A) 70 %; Platelet Count 358 k/uL (150-450); RBC 4.48 m/uL (3.80-5.40); RDW 15.4 % (11.5-15.5); WBC 10.3 k/uL (3.8-10.6)
[2018-01-14 06:57] LABS: Appearance,Urine Cloudy (Clear); Bilirubin,Urine Negative (Negative); Blood,Urine Negative (Negative); Color,Urine Yellow; Glucose,Urine (UA) Negative (Negative); Ketones,Urine Negative (Negative); Leukocyte Esterase,Urine Moderate (Negative); Mucus,Urine Occasional /hpf; Nitrite,Urine Negative (Negative); PH, Urine 5.5 (5.0-8.0); Protein,Urine Negative (Negative); Specific Gravity,Urine 1.017 (1.001-1.035); Squamous Epithelial Cell,Urine 1 /hpf (0-4); Urobilinogen,Urine <2.0 mg/dL (<2.0); WBC,Urine 4 /hpf (0-5)
[2018-01-14 07:00] LABS: ALT 26 U/L (9-52); AST 19 U/L (14-36); Albumin 3.9 g/dL (3.5-5.0); Alkaline Phosphatase 86 U/L (38-126); Anion Gap 11 mmol/L; Blood Urea Nitrogen 11 mg/dL (7-17); Calcium 9.6 mg/dL (8.4-10.2); Carbon Dioxide 20 mmol/L (22-30); Chloride 106 mmol/L (98-107); Glucose 91 mg/dL (74-99); Potassium 4.2 mmol/L (3.5-5.1); Sodium 137 mmol/L (137-145); Total Bilirubin 0.1 mg/dL (0.2-1.3); Total Protein 7.1 g/dL (6.3-8.2)
[2018-01-14 07:34] VITALS: BP 124/60; PULSE 80; RESP 18; TEMP 98
== END 2018-01-14 07:31 | disposition home or self-care (01) ==
LOC: EC 05:52
DX: Z04.1 Encounter for examination and observation following transport accident (principal); O26.891 Other specified pregnancy related conditions, first trimester; R10.30 Lower abdominal pain, unspecified; O99.89 Other specified diseases and conditions complicating pregnancy, childbirth and the puerperium; M54.5 Low back pain; O99.341 Other mental disorders complicating pregnancy, first trimester; F41.9 Anxiety disorder, unspecified; O99.011 Anemia complicating pregnancy, first trimester; D50.9 Iron deficiency anemia, unspecified; Z87.891 Personal history of nicotine dependence; Z79.899 Other long term (current) drug therapy; Z88.6 Allergy status to analgesic agent; Z88.5 Allergy status to narcotic agent; Z88.8 Allergy status to other drugs, medicaments and biological substances; Z91.018 Allergy to other foods; Z3A.14 14 weeks gestation of pregnancy
CPT/HCPCS: 36415; 80053; 81001; 85025; 86850; 86900; 86901; 99284

== ENCOUNTER 2018-02-24 12:37 | Outpatient (CLI) | payer OTHER ==
[2018-02-24 13:11] VITALS: BP 131/75; PULSE 96; RESP 16; TEMP 98
--- NOTE | 2018-02-24 22:30 | P.MSEPDOC ---
Presenting Problems - Arrival Data Date of Arrival on Unit: 02/24/18 Time of Arrival on Unit: 12:37 Mode of Transport: Ambulatory - Complaint OB-Reason for Admission/Chief Complaint: Vaginal Bleeding Comment: red spotting after intercourse Medical History - Information : 6 Para: 5 Term: 0 : 0 Abortions: Spontaneous or Elective: 5 Number of Living Children: 0 - Gestational Age Gestational Age by ELOY (wks/days): 19 Weeks and 4 Days Review of Systems - Review of Systems Constitutional: No problems Breast: No problems ENT: No problems Cardiovascular: No problems Respiratory: No problems Gastrointestinal: No problems Genitourinary: No problems Musculoskeletal: No problems Neurological: No problems Skin: No problems Vital Signs - Temperature Temperature: 98 F Temperature Source: Temporal Artery Scan - Pulse Apical Pulse Rate: 96 Pulse Assessment Method: Pulse Oximetry - Respirations Respiratory Rate: 16 Oxygen Delivery Method: Room Air O2 Sat by Pulse Oximetry: 98 - Blood Pressure Right Arm Sitting Blood Pressure: 131/75 Blood Pressure Mean: 93 Blood Pressure Source: Automatic Cuff Medical Screen Scoring (Pre) - Cervical Exam Dilation: 0 cm = 0 Membranes: Intact - Uterine Contractions Frequency: N/A Duration: N/A Intensity: N/A - Maternal Vital Signs Maternal Temperature: N/A Maternal Blood Pressure: N/A Signs of Preeclampsia: N/A Maternal Respirations: N/A - Maternal Trauma Maternal Trauma: N/A - Assessment Baseline FHR: 148 - Total Score Total Score (Pre): 0 - Level of Risk Level of Risk: Low (0-5) Physician Notification (Pre) - Physician Notified Physician Notified Date: 02/24/18 Physician Notified Time: 12:58 Physician/Practitioner Notifed:: Loreto Spoke With: Loreto New Order Received: Yes - Notification Comment Comment: , pt of Dr. Gerardo, vaginal bleeding, intercourse last evening, spec exam brown blood, cervix anterior, closed, firm and thick. FHT dopplered, ab soft and nontender. States to d/c home, follow up as scheduled, no intercourse. Disposition - Disposition OB Disposition: Discharge to home, Written follow up instructions reviewed Discharge Date: 02/24/18 Discharge Time: 13:00 I agree with the RN Medical Screening Exam: Yes Risk & Benefit of care provided described in d/c instruction: Yes Diagnosis: SPOTTING COMPLICATING , SECOND TRIMESTER
== END 2018-02-24 13:00 | disposition home or self-care (01) ==
LOC: FBPOP 12:37
PROVIDERS: ATTEND Obstetrics & Gynecology
DX: O26.852 Spotting complicating pregnancy, second trimester (principal); Z3A.19 19 weeks gestation of pregnancy
CPT/HCPCS: 99213

== ENCOUNTER 2018-04-01 23:37 | Emergency (ER) | payer OTHER ==
[~2018-04-01 23:37] MED LIST: SODIUM CHLORIDE 0.9% 1,000 ML BAG ONE
--- NOTE | 2018-04-02 01:26 | XR ---
EXAMINATION TYPE: XR chest 2V DATE OF EXAM: 04/02/2018 COMPARISON: 10/12/2013 HISTORY: Cough TECHNIQUE: Frontal and lateral views of the chest are obtained. FINDINGS: Heart and mediastinum are normal to lungs are clear. Diaphragm is normal. Bony thorax appe ars normal. IMPRESSION: Normal chest. No change.
[2018-04-02 02:53] LABS: Amorphous Sediment,Urine Rare /hpf; Bacteria,Urine Rare /hpf; Mucus,Urine Rare /hpf; RBC,Urine <1 /hpf (0-5); Squamous Epithelial Cell,Urine 6 /hpf (0-4); WBC,Urine 4 /hpf (0-5)
[2018-04-02 02:56] LABS: Basophils % (A) 0 %; Eosinophils # (A) 0.3 k/uL (0-0.7); Eosinophils % (A) 2 %; HCT 29.5 % (34.0-46.0); HGB 9.5 gm/dL (11.4-16.0); Hypochromasia Slight; Lymphocytes # (A) 2.5 k/uL (1.0-4.8); Lymphocytes % (A) 19 %; MCH 25.6 pg (25.0-35.0); MCHC 32.1 g/dL (31.0-37.0); MCV 79.7 fL (80.0-100.0); Mean Platelet Volume 6.6; Monocytes # (A) 0.9 k/uL (0-1.0); Monocytes % (A) 7 %; Neutrophils # (A) 9.2 k/uL (1.3-7.7); Neutrophils % (A) 70 %; Platelet Count 449 k/uL (150-450); RDW 15.9 % (11.5-15.5); WBC 13.2 k/uL (3.8-10.6)
[2018-04-02 02:57] LABS: Creatine Kinase 36 U/L (30-135); Creatine Kinase MB <0.2 ng/mL (0.0-2.4); Troponin I <0.012 ng/mL (0.000-0.034)
[2018-04-02 02:58] LABS: ALT 53 U/L (9-52); AST 37 U/L (14-36); Albumin 3.2 g/dL (3.5-5.0); Alkaline Phosphatase 109 U/L (38-126); Anion Gap 8 mmol/L; Blood Urea Nitrogen 11 mg/dL (7-17); Calcium 9.1 mg/dL (8.4-10.2); Carbon Dioxide 20 mmol/L (22-30); Chloride 108 mmol/L (98-107); Glucose 100 mg/dL (74-99); Magnesium 1.7 mg/dL (1.6-2.3); Potassium 4.1 mmol/L (3.5-5.1); Sodium 136 mmol/L (137-145); Total Bilirubin 0.2 mg/dL (0.2-1.3); Total Protein 6.2 g/dL (6.3-8.2)
[2018-04-02 03:01] LABS: Appearance,Urine Clear (Clear); Bilirubin,Urine Negative (Negative); Blood,Urine Negative (Negative); Color,Urine Yellow; Glucose,Urine (UA) Negative (Negative); Ketones,Urine Negative (Negative); Leukocyte Esterase,Urine Moderate (Negative); Nitrite,Urine Negative (Negative); Protein,Urine Negative (Negative); Specific Gravity,Urine 1.014 (1.001-1.035)
--- NOTE | 2018-04-02 03:17 | CT ---
EXAMINATION TYPE: CT angio chest DATE OF EXAM: 04/02/2018 3:03 AM COMPARISON: None HISTORY: chest pain CT DLP: 897.4 mGycm Automated exposure control for dose reduction was used. CONTRAST: CTA scan of the thorax is performed with IV Contrast, patient injected with 120mL mL of Isovue 370, p ulmonary embolism protocol. There are 3-D post processed images.. FINDINGS: Heart and mediastinum appear normal. There is no mediastinal adenopathy. There are no hilar masses. T here is no pericardial effusion. The lungs are clear of consolidation. There is no evidence of a pulm onary mass. There is no pleural effusion. The bony thorax appears intact. There are multiple cholesterol gallstones. There is normal contrast opacification of the pulmonary arteries. There are no filling defects. Thora cic aorta appears normal. There is no evidence of aneurysm or dissection. IMPRESSION: NO EVIDENCE OF PULMONARY EMBOLISM. CHOLELITHIASIS.
== END 2018-04-02 04:39 | disposition home or self-care (01) ==
LOC: EC 23:37
DX: O99.612 Diseases of the digestive system complicating pregnancy, second trimester (principal); K80.50 Calculus of bile duct without cholangitis or cholecystitis without obstruction; O99.89 Other specified diseases and conditions complicating pregnancy, childbirth and the puerperium; R06.02 Shortness of breath; Z3A.26 26 weeks gestation of pregnancy; M54.9 Dorsalgia, unspecified; Z88.5 Allergy status to narcotic agent; Z88.8 Allergy status to other drugs, medicaments and biological substances
CPT/HCPCS: 36415; 80053; 82550; 82553; 83735; 84484; 85025; 81001; 71046; 71275; 99285; 96360; Q9967

== ENCOUNTER 2018-05-21 20:40 | Outpatient (CLI) | payer OTHER ==
[2018-05-21 21:51] VITALS: BP 126/68; PULSE 103; RESP 16; TEMP 96.9
--- NOTE | 2018-05-22 06:40 | P.MSEPDOC ---
Presenting Problems - Arrival Data Date of Arrival on Unit: 05/21/18 Time of Arrival on Unit: 20:40 Mode of Transport: Ambulatory - Complaint OB-Reason for Admission/Chief Complaint: Pain Comment: pressure and lower abdominal pain Medical History - Information : 6 Para: 0 Term: 0 : 0 Abortions: Spontaneous or Elective: 5 Number of Living Children: 0 - Gestational Age Gestational Age by ELOY (wks/days): 31 Weeks and 6 Days Review of Systems - Review of Systems Constitutional: No problems Breast: No problems ENT: No problems Cardiovascular: No problems Respiratory: No problems Gastrointestinal: No problems Genitourinary: No problems Musculoskeletal: No problems Neurological: No problems Skin: No problems Vital Signs - Temperature Temperature: 96.9 F Temperature Source: Temporal Artery Scan - Pulse Right Brachial Pulse Rate: 103 Pulse Assessment Method: Automatic Cuff - Respirations Respiratory Rate: 16 Oxygen Delivery Method: Room Air O2 Sat by Pulse Oximetry: 98 - Blood Pressure Right Arm Blood Pressure: 126/68 Blood Pressure Mean: 87 Blood Pressure Source: Automatic Cuff Medical Screen Scoring (Pre) - Cervical Exam Dilation: 0 cm = 0 Membranes: Intact - Uterine Contractions Frequency: N/A Duration: N/A Intensity: N/A - Maternal Vital Signs Maternal Temperature: N/A Maternal Blood Pressure: N/A Signs of Preeclampsia: N/A Maternal Respirations: N/A - Pain Assessment Pain Location and Character: Lower, Abdomen Pain Scale Used: Numeric (1 - 10) Pain Intensity: 6 Pain Description: *Acute, Pulling Pain Frequency: Intermittent Pain Duration Units: Minutes Pain Behavior: Vocalization - Assessment Baseline FHR: 135 Heart Rate - NICHD Category: Category I (Normal) = 0 NST: Reactive Position: N/A Station: N/A - Total Score Total Score (Pre): 0 - Level of Risk Level of Risk: N/A Physician Notification (Pre) - Physician Notified Physician Notified Date: 05/21/18 Physician Notified Time: 21:25 Physician/Practitioner Notifed:: Dr. Kim Spoke With: Dr. Kim New Order Received: Yes - Notification Comment Comment: Dr. Kim called and given report on pt in tr. Pt c/o. vs wnl. reactive nst. Orders recieved to collect ffn and perform vag exam. If pt is not dilated, pt to be d/c to home. Disposition - Disposition OB Disposition: Discharge to home Discharge Date: 05/21/18 Discharge Time: 21:45 I agree with the RN Medical Screening Exam: Yes Risk & Benefit of care provided described in d/c instruction: Yes Diagnosis: FALSE LABOR BEFORE 37 COMPLETED WEEKS OF GEST, THIRD TRI
== END 2018-05-21 21:45 | disposition home or self-care (01) ==
LOC: FBPOP 20:40
PROVIDERS: ATTEND Obstetrics & Gynecology
DX: O47.03 False labor before 37 completed weeks of gestation, third trimester (principal); Z3A.31 31 weeks gestation of pregnancy
CPT/HCPCS: 59025; 99213

== ENCOUNTER 2018-06-21 11:37 | Outpatient (CLI) | payer OTHER ==
[2018-06-21 13:02] LABS: Total Bilirubin 0.4 mg/dL (0.2-1.3)
[2018-06-21 13:14] LABS: Anisocytosis Slight; Basophils % (A) 0 %; Eosinophils # (A) 0.2 k/uL (0-0.7); Eosinophils % (A) 2 %; HCT 32.9 % (34.0-46.0); HGB 10.1 gm/dL (11.4-16.0); Hypochromasia Marked; Lymphocytes # (A) 1.6 k/uL (1.0-4.8); Lymphocytes % (A) 14 %; MCH 23.4 pg (25.0-35.0); MCHC 30.8 g/dL (31.0-37.0); MCV 75.8 fL (80.0-100.0); Mean Platelet Volume 7.1; Microcytosis Slight; Monocytes # (A) 0.7 k/uL (0-1.0); Monocytes % (A) 7 %; Neutrophils # (A) 8.2 k/uL (1.3-7.7); Neutrophils % (A) 76 %; Platelet Count 442 k/uL (150-450); Poikilocytosis Slight; RBC 4.34 m/uL (3.80-5.40); RDW 16.6 % (11.5-15.5); WBC 10.9 k/uL (3.8-10.6)
[2018-06-21 14:04] VITALS: BP 137/80; PULSE 89; RESP 16; TEMP 97.3
--- NOTE | 2018-06-27 18:29 | P.MSEPDOC ---
Presenting Problems - Arrival Data Date of Arrival on Unit: 06/21/18 Time of Arrival on Unit: 11:48 Mode of Transport: Ambulatory - Complaint OB-Reason for Admission/Chief Complaint: Observation/Evaluation, Other Comment: lab work for cholestasis Medical History - Information : 6 Para: 0 Term: 0 : 0 Abortions: Spontaneous or Elective: 5 Number of Living Children: 0 - Gestational Age Gestational Age by ELOY (wks/days): 36 Weeks and 2 Days Review of Systems - Review of Systems Constitutional: No problems Breast: No problems ENT: No problems Cardiovascular: No problems Respiratory: No problems Gastrointestinal: No problems Genitourinary: No problems Musculoskeletal: No problems Neurological: No problems Skin: Itching Vital Signs - Temperature Temperature: 97.3 F Temperature Source: Temporal Artery Scan - Pulse Right Radial Pulse Rate: 89 Pulse Assessment Method: Automatic Cuff - Respirations Respiratory Rate: 16 Oxygen Delivery Method: Room Air - Blood Pressure Right Arm Blood Pressure: 137/80 Blood Pressure Mean: 99 Blood Pressure Source: Automatic Cuff Medical Screen Scoring (Pre) - Cervical Exam Dilation: Exam Deferred Effacement: Exam Deferred Membranes: Intact - Uterine Contractions Frequency: > 5 minutes apart = 1 Duration: N/A Intensity: N/A - Maternal Vital Signs Maternal Temperature: N/A Maternal Blood Pressure: N/A Signs of Preeclampsia: N/A Maternal Respirations: N/A - Pain Assessment Pain Scale Used: Numeric (1 - 10) Pain Intensity: 0 Pain Management Goal: 0 - Maternal Trauma Maternal Trauma: N/A - Assessment Baseline FHR: 140 Heart Rate - NICHD Category: Category I (Normal) = 0 NST: Reactive Position: N/A Station: N/A - Total Score Total Score (Pre): 1 - Level of Risk Level of Risk: Low (0-5) Physician Notification (Pre) - Physician Notified Physician Notified Date: 06/21/18 Physician Notified Time: 11:30 Physician/Practitioner Notifed:: lou Spoke With: lou New Order Received: Yes - Notification Comment Comment: sent from office with lab work orders /report called on lab work at 1346. oked for discharge. follow up in office on thursday06/25/2018 Disposition - Disposition OB Disposition: Discharge to home, Written follow up instructions reviewed Discharge Date: 06/21/18 Discharge Time: 13:46 I agree with the RN Medical Screening Exam: Yes Risk & Benefit of care provided described in d/c instruction: Yes Diagnosis: RELATED CONDITIONS, UNSPECIFIED, THIRD TRIMESTER
== END 2018-06-21 13:46 | disposition home or self-care (01) ==
LOC: FBPOP 11:37
PROVIDERS: ATTEND Obstetrics & Gynecology
DX: O26.93 Pregnancy related conditions, unspecified, third trimester (principal); Z3A.36 36 weeks gestation of pregnancy
CPT/HCPCS: 59025; 82239; 82247; 84450; 84460; 85025; 99213

== ENCOUNTER 2018-06-25 12:19 | Outpatient (CLI) | payer OTHER ==
[2018-06-25 12:48] VITALS: BP 133/68; PULSE 79; RESP 20; TEMP 97.6
--- NOTE | 2018-06-25 14:47 | US ---
EXAMINATION TYPE: US OB BPP wo non-stress DATE OF EXAM: 06/25/2018 COMPARISON: NONE CLINICAL HISTORY: Non reactive NST. EXAM PERFORMED: Transabdominal (TA) BPP PARAMETERS: PRESENTATION: Vertex LIE: Longitudinal?? HEART RATE: 145 bpm RHYTHM: Normal LAUREL: 14.1 cm DIAPHRAGM IMAGED: Yes BPP SCORIN. Breathin (1 episode of breathing of 30 second duration in 30 minutes of scanning time) 2. Movement: 2 (at least 3 discrete body movements in 30 minutes) 3. Tone: 2 (1 episode of active flexion/extension of limb) 4. LAUREL: 2 (LAUREL index > 5cm) TOTAL SCORE: 8 / 8 Viable IUP
--- NOTE | 2018-07-27 10:26 | P.MSEPDOC ---
Presenting Problems - Arrival Data Date of Arrival on Unit: 06/25/18 Time of Arrival on Unit: 12:20 Mode of Transport: Portable - Complaint OB-Reason for Admission/Chief Complaint: NST Comment: NST for Cholestasis Medical History - Information : 6 Para: 0 Term: 0 : 0 Abortions: Spontaneous or Elective: 5 Number of Living Children: 0 - Gestational Age Gestational Age by ELOY (wks/days): 36 Weeks and 6 Days Review of Systems - Review of Systems Constitutional: No problems Breast: No problems ENT: No problems, Nasal congestion Cardiovascular: No problems Respiratory: No problems Gastrointestinal: No problems Genitourinary: No problems Musculoskeletal: No problems Neurological: No problems Skin: Itching Vital Signs - Temperature Temperature: 97.6 F Temperature Source: Temporal Artery Scan - Pulse Pulse Oximetery Pulse Rate: 79 Pulse Assessment Method: Pulse Oximetry - Respirations Respiratory Rate: 20 O2 Sat by Pulse Oximetry: 98 - Blood Pressure Right Arm Sitting Blood Pressure: 133/68 Blood Pressure Mean: 89 Blood Pressure Source: Automatic Cuff Medical Screen Scoring (Pre) - Cervical Exam Dilation: Exam Deferred Effacement: Exam Deferred Membranes: Intact - Uterine Contractions Frequency: > 5 minutes apart = 1 Duration: > 40 seconds = 2 Intensity: N/A - Maternal Vital Signs Maternal Temperature: N/A Maternal Blood Pressure: N/A Signs of Preeclampsia: N/A Maternal Respirations: N/A - Pain Assessment Pain Location and Character: Abdomen Pain Scale Used: Numeric (1 - 10) Pain Intensity: 4 Pain Description: *Acute, Tightness Pain Radiation Location: no Pain Frequency: Intermittent Pain Duration: 1 Pain Duration Units: Minutes Pain Behavior: None Exhibited Non-Pharmacological Interventions: Distraction, Emotional/Spiritual Support, Environmental Control - Maternal Trauma Maternal Trauma: N/A - Assessment Baseline FHR: 140 Heart Rate - NICHD Category: Category I (Normal) = 0 NST: Reactive Position: N/A Station: N/A - Total Score Total Score (Pre): 3 - Level of Risk Level of Risk: Low (0-5) Physician Notification (Post) - Physician Notified Physician Notified Date: 06/25/18 Physician Notified Time: 13:45 Physician/Practitioner Notified:: Dr Valle Spoke With: Dr Valle New Order Received: Yes Disposition - Disposition OB Disposition: Discharge to home, Written follow up instructions reviewed Discharge Date: 06/25/18 Discharge Time: 14:34 I agree with the RN Medical Screening Exam: Yes Risk & Benefit of care provided described in d/c instruction: Yes Diagnosis: RELATED CONDITIONS, UNSPECIFIED, THIRD TRIMESTER (cholestasis)
== END 2018-06-25 14:34 | disposition home or self-care (01) ==
LOC: FBPOP 12:19
PROVIDERS: ATTEND Obstetrics & Gynecology
DX: O26.613 Liver and biliary tract disorders in pregnancy, third trimester (principal); K83.1 Obstruction of bile duct; Z3A.36 36 weeks gestation of pregnancy
CPT/HCPCS: 59025; 76819; 99213

== ENCOUNTER 2018-06-30 06:15 | Inpatient (IN) | payer OTHER ==
[2018-06-30] MEDS ORDERED: LIDOCAINE 0.5% (PF) 5 MG/ML (50 ML SDV) SQ PRN (06:28)
[2018-06-30] MEDS ORDERED: OXYTOCIN 10 UNIT/ML 1 ML VIAL IM PRN (06:28)
[2018-06-30] MEDS ORDERED: METHYLERGONOVINE 0.2 MG/ML 1 ML AMP IM PRN (06:28)
[2018-06-30] MEDS ORDERED: CARBOPROST TROMETHAMINE 250 MCG/ML 1 ML AMP IM PRN (06:28)
[2018-06-30] MEDS ORDERED: LACTATED RINGERS 1,000 ML IV SCH ×2 (06:30→19:45)
[2018-06-30] MEDS ORDERED: OXYTOCIN 30 UNITS/500 ML NS 30 UNIT in SALINE 1 500ML.BAG IV SCH (06:30)
[2018-06-30 06:40] VITALS: BMI 35.7
[2018-06-30] MEDS: LACTATED RINGERS 1,000 ML IV SCH ×3 (06:41→18:41)
[2018-06-30 06:50] LABS: Anisocytosis Slight; Basophils # (A) 0.1 k/uL (0-0.2); Basophils % (A) 0 %; Eosinophils # (A) 0.2 k/uL (0-0.7); Eosinophils % (A) 2 %; HCT 32.5 % (34.0-46.0); HGB 10.4 gm/dL (11.4-16.0); Hypochromasia Marked; Lymphocytes # (A) 2.9 k/uL (1.0-4.8); Lymphocytes % (A) 22 %; MCH 23.6 pg (25.0-35.0); MCV 73.8 fL (80.0-100.0); Mean Platelet Volume 7.3; Microcytosis Moderate; Monocytes # (A) 0.8 k/uL (0-1.0); Monocytes % (A) 7 %; Neutrophils # (A) 8.5 k/uL (1.3-7.7); Neutrophils % (A) 66 %; Platelet Count 478 k/uL (150-450); Poikilocytosis Slight; RBC 4.41 m/uL (3.80-5.40); WBC 12.8 k/uL (3.8-10.6)
[2018-06-30] MEDS ORDERED: ROPIVACAINE 5MG/ML 20ML VIAL ONE (15:07)
[2018-06-30] MEDS ORDERED: fentaNYL (PF) 50 MCG/ML 5 ML AMP ONE (15:07)
[2018-06-30] MEDS ORDERED: SODIUM CHLORIDE 0.9% 100 ML BAG ONE (15:07)
[2018-06-30] MEDS ORDERED: MORPHINE SULFATE (PF) 0.3 MG/0.3 ML SYR ONE (18:39)
[2018-06-30] MEDS ORDERED: KETOROLAC 30 MG/ML 1 ML VIAL ONE (18:39)
[2018-06-30] MEDS ORDERED: NALBUPHINE 10 MG/ML (1 ML AMP) ONE (18:39)
[2018-06-30] MEDS ORDERED: OXYTOCIN 10 UNIT/ML 1 ML VIAL ONE (18:39)
[2018-06-30] MEDS ORDERED: ceFAZolin IN SWFI 2 GM/20 ML SYRINGE IVP ONE (18:41)
[2018-06-30] MEDS ORDERED: CITRIC ACID-SODIUM CITRATE 15 ML CUP PO ONE (18:41)
[2018-06-30] MEDS ORDERED: KETOROLAC 30 MG/ML 1 ML VIAL IVP PRN (19:36)
[2018-06-30] MEDS ORDERED: NALOXONE 0.4 MG/ML 1 ML VIAL IV PRN (19:36)
[2018-06-30] MEDS ORDERED: diphenhydrAMINE 25 MG CAP PO PRN (19:36)
[2018-06-30] MEDS ORDERED: diphenhydrAMINE 50 MG/ML 1 ML VIAL IVP PRN ×2 (19:36)
[2018-06-30] MEDS ORDERED: SIMETHICONE 80 MG CHEWABLE PO PRN (19:36)
[2018-06-30] MEDS ORDERED: ZOLPIDEM 5 MG TAB PO PRN (19:36)
[2018-06-30] MEDS ORDERED: ONDANSETRON 4 MG/2 ML VIAL IVP PRN (19:36)
[2018-06-30] MEDS ORDERED: diphenhydrAMINE 50 MG CAP PO PRN (19:36)
[2018-06-30] MEDS ORDERED: MEASLES-MUMPS-RUBELLA VACC/PF 12,500 UNIT/0.5 ML VIAL SQ ONE (19:36)
[2018-06-30] MEDS ORDERED: METOCLOPRAMIDE 5 MG/ML 2 ML VIAL IVP PRN (19:36)
[2018-06-30] MEDS ORDERED: ACETAMINOPHEN TAB 325 MG TAB PO PRN (19:36)
--- NOTE | 2018-06-30 19:45 | P.HPOB ---
History of Present Illness H&P Date: 06/30/18 Chief Complaint: Intrauterine at term: Cholestasis of Saba is a 28-year-old at 37 weeks 3 days gestation who has cholestasis diagnosed late in due to itching prickly in her hands and extremities, I did speak with maternal medicine and while her labs were normal they did relate that they felt that if her symptoms were that classic for the symptomatology of cholestasis that the labs may not represent at this time to state of the disease. She was started on Actigall to try and get the itching improved. She did have mild elevation of her liver enzymes during this process but they did correct. She also has had , complicated by cholelithiasis. Pertinent labs did include A+ blood type, Rh antibody was negative, rubella nonimmune, hepatitis B surface antigen/RPR/HIV/GBS were all negative. At time of evaluation she was dilated 1/2 cm 70% effaced -3 station artificial rupture membranes was performed and clear fluid is noted. heart tones revealed a category 1 tracing. All questions were answered for her prior to initiation of the induction. She is aware with an induction there is a higher risk for necessity for . But at this time she is feeling well and all questions are answered for her. On physical exam vital signs are stable and afebrile. Heart regular, lungs clear, extremities without pain. Abdomen soft gravid uterus is noted. Plan induction of labor. She plans she is an epidural for analgesia. She does have a codeine ALLERGY listed, but she says she is taking Caspar without dif ficulty in the past. She also relates that morphine and Dilaudid causes her no problems. Expect spontaneous vaginal delivery. Past Medical History Past Medical History: No Reported History Additional Past Medical History / Comment(s): heart murmur. OB history: 5 previous miscarriages with no D&C, one ectopic requiring x-lap with removal of fallopian tube, iron defeciency anemia History of Any Multi-Drug Resistant Organisms: MRSA Date of last positivie culture/infection: 2010 MDRO Source:: Left Knee Past Surgical History: No Surgical Hx Reported Additional Past Surgical History / Comment(s): tube removal, lumpectomy from neck D&C Past Anesthesia/Blood Transfusion Reactions: No Reported Reaction Past Psychological History: Anxiety, Bipolar, Depression Smoking Status: Former smoker Past Alcohol Use History: None Reported Past Drug Use History: None Reported - Past Family History Mother Additional Family Medical History / Comment(s): Artificial heart valve Medications and Allergies Home Medications Medication Instructions Recorded Confirmed Type No Known Home Medications 06/23/18 06/30/18 History Allergies Allergy/AdvReac Type Severity Reaction Status Date / Time aspirin Allergy Rash/Hives Verified 06/30/18 06:30 cinnamon Allergy Anaphylaxis Verified 06/30/18 06:30 molasses Allergy Anaphylaxis Verified 06/30/18 06:30 amphetamine aspartate AdvReac Hallucinati Verified 06/30/18 06:30 [From Adderall] ons amphetamine sulfate AdvReac Hallucinati Verified 06/30/18 06:30 [From Adderall] ons benztropine mesylate AdvReac Hallucinati Verified 06/30/18 06:30 [From Cogentin] ons codeine AdvReac Hallucinati Verified 06/30/18 06:30 ons dextroamphetamine saccharate AdvReac Hallucinati Verified 06/30/18 06:30 [From Adderall] ons dextroamphetamine sulfate AdvReac Hallucinati Verified 06/30/18 06:30 [From Adderall] ons lamotrigine [From Lamictal] AdvReac Rash/Hives Verified 06/30/18 06:30 [place] Allergy Anaphylaxis Uncoded 06/30/18 06:30 nutmeg Allergy Anaphylaxis Uncoded 06/30/18 06:30 spices Allergy Anaphylaxis Uncoded 06/30/18 06:30 Exam Osteopathic Statement: *. No significant issues noted on an osteopathic structural exam other than those noted in the History and Physical/Consult. Vital Signs Temp Pulse Resp BP Pulse Ox 06/30/18 06:34 97 F L 104 H 16 138/92 98 Intake and Output 06/30/18 06/30/18 06/30/18 06:59 14:59 22:59 Intake Total 1100 Balance 1100 Intake: Intake, IV Titration 1100 Amount Lactated Ringers 1,000 ml 1100 @ 999 mls/hr IV .Q1H1M [facility] Rx#:[id number] Other: Weight 91.626 kg - OBG Physical Exam Breast: both: normal (no masses) Abdomen: bowel sounds normal, no diffuse tenderness, no bruit present, no guarding noted, no hepatomegaly, no splenomegaly, no mass Vulva: both: normal Vagina: normal moisture, no discharge Cervix: no lesion, no discharge Uterus: normal size, normal contour Adnexa: both: normal Anus/Rectum: normal perianal skin, no rectal mass, no hemorrhoids, heme negative Results Result Diagrams: 06/30/18 06:25 Abnormal Lab Results - Last 24 Hours (Table) 06/30/18 Range/Units 06:25 WBC 12.8 H (3.8-10.6) k/uL Hgb 10.4 L (11.4-16.0) gm/dL Hct 32.5 L (34.0-46.0) % MCV 73.8 L (80.0-100.0) fL MCH 23.6 L (25.0-35.0) pg RDW 17.0 H (11.5-15.5) % Plt Count 478 H (150-450) k/uL Neutrophils # 8.5 H (1.3-7.7) k/uL
--- NOTE | 2018-06-30 19:49 | P.OP ---
Date of Procedure: 06/30/18 Preoperative Diagnosis: Intrauterine at term: Cholestasis: Deceleration into the 60s Postoperative Diagnosis: Same with nuchal cord 2 Procedure(s) Performed: Primary low-transverse section with vacuum assist Anesthesia: epidural Surgeon: Saleem Valle Leather Worker #1: Makenzie Walton Estimated Blood Loss (ml): 500 IV fluids (ml): 600 Urine output (ml): 300 Pathology: none sent Condition: stable Disposition: floor Operative Findings: Male nuchal cord 2 Description of Procedure: Patient was taken to the operating suite where an epidural anesthetic was found be adequate. She was prepped and draped in normal sterile fashion and placed in dorsal supine position with leftward tilt. Initially a Pfannenstiel skin incision was made, and this incision was carried through to the underlying layer of the fascia with the second knife. Fascia was then nicked in the midline and this opening was extended laterally with Tompkins scissors. Superior and inferior aspect of this incision were then grasped tented up and bluntly and sharply dissected off the rectus muscles. Rectus muscles were then divided in the midline and blunt dissection through the peritoneum was made. This opening was then extended superiorly and inferiorly with good visualization of both bowel bladder. Bladder blade was then placed and the vesicouterine peritoneum identified. It was entered sharply with with Metzenbaum scissors and this opening was extended across face the uterus to allow for the bladder to be dissected out of the operative field. Knife was then used to incise uterus and this opening was fully developed with a hemostat. Blunt dissection or extension of the incision was then made. While attempting deliver the head was noted that the angle was difficult and baby was not delivering is easily as we would like, therefore a [place] vacuum was placed without difficulty and inflated to the green section of the PSI and using one gentle pull we're able to deliver the head without difficulty a nuchal cord 2 was then noted and easily reduced following removal of the vacuum which was in place for less than 15 seconds. Once nuchal cord was were reduced anterior posterior shoulders were delivered with gentle traction and the remainder the baby was delivered. Mouth and nares were bulb suctioned again umbilical cord clamped cut usual fashion an nursery personnel present to assume care. Placenta was then delivered intact and Pitocin was added to the IV. Uterus was then exteriorized cleared of clots and debris and closed in 2 layers with 0 Vicryl suture. Once excellent hemostasis was obtained blood and debris was suctioned from the posterior cul-de-sac and uterus was reinserted into the abdomen. Peritoneal layer was reapproximated with 0 Vicryl suture. Fascial layer was closed with 0 Vicryl suture. One layer of 3-0 Vicryl was placed in deep subcuticular tissues to reapproximate the skin the skin was then closed with 3-0 Vicryl. Sponge, lap, needle counts were all correct 2. Patient was then taken to the recovery room in stable and satisfactory condition.
[2018-06-30] MEDS: SENNOSIDES-DOCUSATE SODIUM 1 EACH TAB PO SCH (23:38)
[2018-07-01 06:45] LABS: Anisocytosis Slight; Basophils % (A) 0 %; Eosinophils # (A) 0.1 k/uL (0-0.7); Eosinophils % (A) 1 %; HGB 9.4 gm/dL (11.4-16.0); Hypochromasia Marked; Lymphocytes # (A) 1.8 k/uL (1.0-4.8); Lymphocytes % (A) 14 %; MCH 23.2 pg (25.0-35.0); MCHC 31.3 g/dL (31.0-37.0); MCV 74.1 fL (80.0-100.0); Mean Platelet Volume 7.4; Microcytosis Moderate; Monocytes # (A) 0.7 k/uL (0-1.0); Monocytes % (A) 6 %; Neutrophils # (A) 10.3 k/uL (1.3-7.7); Neutrophils % (A) 78 %; Platelet Count 391 k/uL (150-450); Poikilocytosis Slight; RBC 4.05 m/uL (3.80-5.40); RDW 16.9 % (11.5-15.5); WBC 13.2 k/uL (3.8-10.6)
[2018-07-01] MEDS: LACTATED RINGERS 1,000 ML IV SCH (07:16)
[2018-07-01] MEDS: SENNOSIDES-DOCUSATE SODIUM 1 EACH TAB PO SCH ×2 (08:54→21:14)
[2018-07-01] MEDS: HYDROcodone/APAP 7.5-325MG 1 EACH TAB PO PRN ×2 (08:54→16:33)
--- NOTE | 2018-07-01 10:16 | P.PNOBGPC ---
Subjective - Subjective Principal diagnosis: Postop day 1 Interval history: Mar is doing very well postop day 1. She is involuting, voiding and she is tolerating her diet. Other than incisional pain she has no complaints. Patient reports: Reports appetite normal, Reports voiding normally, Reports pain well controlled, Reports ambulating normally [place]: doing well Objective - Vital Signs Latest vital signs: Vital Signs Temp Pulse Resp BP Pulse Ox 07/01/18 08:00 98.8 F 87 18 130/77 99 07/01/18 05:51 98.4 F 75 16 130/68 97 07/01/18 02:00 98.5 F 95 16 132/80 07/01/18 00:00 81 16 06/30/18 21:40 98.0 F 81 16 123/60 06/30/18 21:10 83 16 132/73 98 06/30/18 20:40 75 16 144/79 98 06/30/18 20:25 78 16 133/87 06/30/18 20:10 78 16 127/77 06/30/18 19:55 81 16 120/63 96 06/30/18 19:38 97.1 F L 86 16 113/60 95 Intake and Output 06/30/18 07/01/18 07/01/18 22:59 06:59 14:59 Output Total 1000 750 Balance -1000 -750 Output: Urine 1000 750 Uretheral ([place]) 350 Other: Voiding Method Indwelling Catheter Indwelling Catheter # Voids 0 0 1 - Exam Lungs: bilateral: normal Chest: Normal S1, Normal S2 Extremities: Present: normal Abdomen: Present: normal appearance, soft. Absent: distention, tenderness Incision: Present: normal, dry, intact Uterus: Present: normal, firm - Labs Labs: Abnormal Lab Results - Last 24 Hours (Table) 07/01/18 Range/Units 06:28 WBC 13.2 H (3.8-10.6) k/uL Hgb 9.4 L (11.4-16.0) gm/dL Hct 30.0 L (34.0-46.0) % MCV 74.1 L (80.0-100.0) fL MCH 23.2 L (25.0-35.0) pg RDW 16.9 H (11.5-15.5) % Neutrophils # 10.3 H (1.3-7.7) k/uL
[2018-07-01] MEDS: IBUPROFEN 600 MG TAB PO PRN ×2 (13:26→21:12)
[2018-07-02 00:43] VITALS: RESP 16
[2018-07-02] MEDS: LACTATED RINGERS 1,000 ML IV SCH ×2 (00:47→00:50)
[2018-07-02] MEDS: HYDROcodone/APAP 7.5-325MG 1 EACH TAB PO PRN ×2 (01:06→08:07)
[2018-07-02] MEDS: IBUPROFEN 600 MG TAB PO PRN ×2 (04:54→12:43)
[2018-07-02] MEDS: SENNOSIDES-DOCUSATE SODIUM 1 EACH TAB PO SCH (08:07)
--- NOTE | 2018-07-02 08:49 | P.DS ---
Providers Date of admission: 06/30/18 06:19 Expected date of discharge: 07/02/18 Attending physician: Saleem Valle Primary care physician: Stated None Hospital Course: Patient is doing very well postop day 2. She is involuting, voiding, and she is tolerating her diet. She voices no complaints and is requesting discharge to home today. All questions were answered for her prior to her discharge. Prescription for [place] and Motrin were provided. She is wearing follow-up with me in approximately 2 weeks. On physical exam vital signs are stable and afebrile. Heart regular, lungs clear, extremities without pain. Abdomen is soft and nontender positive bowel sounds are noted. Her incision is otherwise clean dry and intact. Assessment postop day 2. Plan discharged home follow up with me in 2 weeks. Patient Condition at Discharge: Good Plan - Discharge Summary New Discharge Prescriptions: New Ibuprofen [Motrin] 600 mg PO Q6HR PRN #30 tab PRN Reason: Pain HYDROcodone/APAP 5-325MG [[place] 5-325] 1 tab PO Q4HR PRN #30 tab PRN Reason: Pain Discharge Medication List HYDROcodone/APAP 5-325MG [[place] 5-325] 1 tab PO Q4HR PRN #30 tab 07/02/18 [Rx] Ibuprofen [Motrin] 600 mg PO Q6HR PRN #30 tab 07/02/18 [Rx] Follow up Appointment(s)/Referral(s): Saleem Valle DO [Doctor of Osteopathic Medicine] - 2 Weeks Activity/Diet/Wound Care/Special Instructions: No heavy lifting, limit stairs and driving, and pelvic rest. If any high temperatures, heavy bleeding, or severe pain call my office Discharge Disposition: HOME SELF-CARE
[2018-07-02 12:49] VITALS: BP 123/68; PULSE 88; TEMP 98.5
== END 2018-07-02 14:32 | disposition home or self-care (01) | DRG 786 ==
LOC: 4FBP 06:19
PROVIDERS: ADMIT Obstetrics & Gynecology; ATTEND Obstetrics & Gynecology
PROC: 10D00Z1 Extraction of Products of Conception, Low, Open Approach (ICD-10-PCS; principal; 2018-06-30 19:02)
DX: O26.62 Liver and biliary tract disorders in childbirth (principal); K83.1 Obstruction of bile duct; O99.42 Diseases of the circulatory system complicating childbirth; O69.81X0 Labor and delivery complicated by cord around neck, without compression, not applicable or unspecified; O99.344 Other mental disorders complicating childbirth; F31.9 Bipolar disorder, unspecified; F41.9 Anxiety disorder, unspecified; O76 Abnormality in fetal heart rate and rhythm complicating labor and delivery; O99.52 Diseases of the respiratory system complicating childbirth; J45.909 Unspecified asthma, uncomplicated; R01.1 Cardiac murmur, unspecified; Z37.0 Single live birth; Z3A.37 37 weeks gestation of pregnancy; Z88.5 Allergy status to narcotic agent; Z87.891 Personal history of nicotine dependence; Z86.14 Personal history of Methicillin resistant Staphylococcus aureus infection; Z88.8 Allergy status to other drugs, medicaments and biological substances; Z91.018 Allergy to other foods; Z98.51 Tubal ligation status; Z82.49 Family history of ischemic heart disease and other diseases of the circulatory system
CPT/HCPCS: 85025; 86850; 86900; 86901; 90707

== ENCOUNTER 2018-07-18 17:43 | Emergency (ER) | payer OTHER ==
[2018-07-18 17:56] VITALS: RESP 16
--- NOTE | 2018-07-18 18:33 | ED ---
Recheck HPI - General Chief Complaint: Recheck/Abnormal Lab/Rx Stated Complaint: Open incision Time Seen by Provider: 07/18/18 17:59 Source: patient, RN notes reviewed, old records reviewed Mode of arrival: ambulatory Limitations: no limitations - History of Present Illness Initial Comments: Patient is a 28 year old female with C section wound opening over right side with minimal drainage for the past 2 days. She had C section by Dr. Koehler on June 30 giving to baby boy. Patient reports she has been using dry dressing over area. - Related Data Previous Rx's Medication Instructions Recorded HYDROcodone/APAP 5-325MG [[place] 1 tab PO Q4HR PRN #30 tab 07/02/18 5-325] Ibuprofen [Motrin] 600 mg PO Q6HR PRN #30 tab 07/02/18 Cephalexin [Keflex] 500 mg PO Q8HR #21 cap 07/18/18 Allergies Allergy/AdvReac Type Severity Reaction Status Date / Time aspirin Allergy Rash/Hives Verified 06/30/18 06:30 cinnamon Allergy Anaphylaxis Verified 06/30/18 06:30 molasses Allergy Anaphylaxis Verified 06/30/18 06:30 amphetamine aspartate AdvReac Hallucinati Verified 06/30/18 06:30 [From Adderall] ons amphetamine sulfate AdvReac Hallucinati Verified 06/30/18 06:30 [From Adderall] ons benztropine mesylate AdvReac Hallucinati Verified 06/30/18 06:30 [From Cogentin] ons codeine AdvReac Hallucinati Verified 06/30/18 06:30 ons dextroamphetamine saccharate AdvReac Hallucinati Verified 06/30/18 06:30 [From Adderall] ons dextroamphetamine sulfate AdvReac Hallucinati Verified 06/30/18 06:30 [From Adderall] ons lamotrigine [From Lamictal] AdvReac Rash/Hives Verified 06/30/18 06:30 [place] Allergy Anaphylaxis Uncoded 06/30/18 06:30 nutmeg Allergy Anaphylaxis Uncoded 06/30/18 06:30 spices Allergy Anaphylaxis Uncoded 06/30/18 06:30 Review of Systems ROS Statement: Those systems with pertinent positive or pertinent negative responses have been documented in the HPI. ROS Other: All systems not noted in ROS Statement are negative. Past Medical History Past Medical History: No Reported History Additional Past Medical History / Comment(s): heart murmur. OB history: 5 previous miscarriages with no D&C, one ectopic requiring x-lap with removal of fallopian tube, iron defeciency anemia History of Any Multi-Drug Resistant Organisms: MRSA Date of last positivie culture/infection: 2010 MDRO Source:: Left Knee Past Surgical History: No Surgical Hx Reported, Section Additional Past Surgical History / Comment(s): tube removal, lumpectomy from neck D&C Past Anesthesia/Blood Transfusion Reactions: No Reported Reaction Past Psychological History: Anxiety, Bipolar, Depression Smoking Status: Former smoker Past Alcohol Use History: None Reported Past Drug Use History: None Reported - Past Family History Mother Additional Family Medical History / Comment(s): Artificial heart valve General Exam - General Exam Comments Initial Comments: 28 year old female, no distress. Limitations: no limitations General appearance: alert Head exam: Present: atraumatic, normocephalic, normal inspection Eye exam: Present: normal appearance, PERRL, EOMI. Absent: scleral icterus, conjunctival injection, periorbital swelling ENT exam: Present: normal exam, mucous membranes moist Neck exam: Present: normal inspection. Absent: tenderness, meningismus, lymphadenopathy Respiratory exam: Present: normal lung sounds bilaterally. Absent: respiratory distress, wheezes, rales, rhonchi, stridor Cardiovascular Exam: Present: regular rate, normal rhythm, normal heart sounds. Absent: systolic murmur, diastolic murmur, rubs, gallop, clicks GI/Abdominal exam: Present: soft, normal bowel sounds, other (incision site over suprapubic area. Patient has less than 1cm dihisence over L corner, minimal less than 1cm erythema around dihisence and minimal drainage. ). Absent: distended, tenderness, guarding, rebound, rigid Back exam: Present: normal inspection Neurological exam: Present: alert, oriented X3, CN II-XII intact Psychiatric exam: Present: normal affect, normal mood Course Vital Signs 07/18/18 07/18/18 17:52 19:01 Temperature 98.3 F 97.9 F Pulse Rate 80 81 Respiratory 16 16 Rate Blood Pressure 104/61 121/78 O2 Sat by Pulse 98 100 Oximetry Medical Decision Making - Medical Decision Making Pt is a 28 year old female for incision site dihiscence over recent C section. OB is Dr. Valle and C section was June 30. She has less than 1cm area of dihiscence over left side of incision. Minimal drainage noted. Wound culture obtained. Patient will be placed on keflex. Discussed follow up with Dr. Valle. Return parameters discussed. Disposition Clinical Impression: section wound complication Disposition: HOME SELF-CARE Condition: Good Instructions (If sedation given, give patient instructions): Surgical Site Infections (ED) Additional Instructions: Patient advised to follow-up with [facility]. Take the medication as prescribed. Return to the emergency department if any alarming signs or symptoms occur. Prescriptions: Cephalexin [Keflex] 500 mg PO Q8HR #21 cap Is patient prescribed a controlled substance at d/c from ED?: No Referrals: Nasir Thompson DO [Primary Care Provider] - 1-2 days Time of Disposition: 18:32
[2018-07-18 19:02] VITALS: BP 121/78; PULSE 81; TEMP 97.9
== END 2018-07-18 19:00 | disposition home or self-care (01) ==
LOC: EC 17:43
DX: O90.0 Disruption of cesarean delivery wound (principal); Z88.6 Allergy status to analgesic agent; Z91.018 Allergy to other foods; Z88.8 Allergy status to other drugs, medicaments and biological substances; Z88.5 Allergy status to narcotic agent; Z87.891 Personal history of nicotine dependence
CPT/HCPCS: 87070; 87077; 87186; 87205; 99284

== ENCOUNTER 2018-08-20 09:16 | Day surgery (SDC) | payer OTHER ==
[2018-08-18 14:43] VITALS: BMI 32.5
[~2018-08-20 09:16] MED LIST changes: +DEXAMETHASONE SOD PHOSPHATE 10 MG/ML 1 ML VIAL IV ONE; +HEPARIN SODIUM,PORCINE 5,000 UNIT/ML 1 ML VIAL SQ ONE; +LACTATED RINGERS 1,000 ML IV SCH; +MIDAZOLAM 2 MG/2 ML VIAL IV PRN; +ONDANSETRON 4 MG/2 ML VIAL IVP ONE; -SODIUM CHLORIDE 0.9% 1,000 ML BAG ONE; +ceFAZolin IN SWFI 2 GM/20 ML SYRINGE IVP ONE
[2018-08-20] MEDS ORDERED: LACTATED RINGERS 1,000 ML IV ONE ×2 (09:55→11:45)
[2018-08-20] MEDS ORDERED: LIDOCAINE 1% 20 ML VIAL (10MG/ML) FOR IV START INTRADERMA ONE (09:56)
[2018-08-20] MEDS ORDERED: GLYCOPYRROLATE 0.2 MG/ML 2 ML VIAL ONE (10:47)
[2018-08-20] MEDS ORDERED: MIDAZOLAM 2 MG/2 ML VIAL ONE (10:47)
[2018-08-20] MEDS ORDERED: ROCURONIUM BROMIDE 10 MG/ML 10 ML VIAL IV ONE (10:47)
[2018-08-20] MEDS ORDERED: fentaNYL (PF) 50 MCG/ML 2 ML AMP ONE (10:47)
[2018-08-20] MEDS ORDERED: NEOSTIGMINE 1 MG/ML 10 ML VIAL ONE (10:47)
[2018-08-20] MEDS ORDERED: PROPOFOL 10 MG/ML 20 ML VIAL IV ONE (10:47)
[2018-08-20] MEDS ORDERED: SUCCINYLCHOLINE CHLORIDE 100 MG/5 ML SYR IV ONE (10:47)
[2018-08-20] MEDS ORDERED: LIDOCAINE 1% INJ 10MG/ML (20 ML MDV) ONE (10:47)
[2018-08-20] MEDS ORDERED: BUPIVACAIN-EPI 0.5%-1:200,000 30 ML VIAL SQ ONE (11:19)
[2018-08-20 12:04] VITALS: TEMP 96.8
[2018-08-20] MEDS ORDERED: HYDROcodone/APAP 5-325MG 1 EACH TAB PO PRN (12:08)
[2018-08-20] MEDS ORDERED: NALOXONE 0.4 MG/ML 1 ML VIAL IV PRN (12:08)
--- NOTE | 2018-08-20 12:11 | P.OP ---
Date of Procedure: 08/20/18 Procedure(s) Performed: PREOPERATIVE DIAGNOSIS: Chronic cholecystitis POSTOPERATIVE DIAGNOSIS: Same PROCEDURE: Laparoscopic cholecystectomy SURGEON: Mitchell EBL: Minimal see anesthesia record ANESTHESIA: Gen. COMPLICATIONS: None OPERATIVE PROCEDURE: The patient was brought and placed on the operating room table in the supine position. The patient was placed under general anesthesia at that time. The abdomen was prepped and draped in the usual sterile fashion. A small vertical infraumbilical incision was made. The fascia was grasped with the Arnel forceps. The fascia was retracted anteriorly. The Veress needle was advanced into the peritoneal cavity. The saline drop test was not normal. A second attempt was made with similar findings. The 5 mm optical trocar was then used to enter the perineal cavity in the right upper quadrant without difficulty. Inspection of the umbilical region took place. There was no evidence that Veress needle had penetrated the peritoneum. An additional 5 mm trocar was placed at the umbilicus as well as the right upper quadrant. A 12 mm trocar was advanced into the epigastric incision site. The gallbladder was retracted superiorly and laterally. The peritoneum overlying the infundibulum was bluntly dissected. The patient's cystic duct was visualized. The junction between the cystic duct common and hepatic duct was identified. The cystic duct was then divided after placement of 3 12 mm clips on the patient's side and one on the specimen side. The cystic artery was identified and clipped as well. A small vessel was seen along the gallbladder fossa and clipped as well. The gallbladder was then removed from the liver bed using electrocautery. The gallbladder was then removed from the epigastric trocar site with an Endo Catch bag. The gallbladder fossa was irrigated with saline. There was no evidence of any bleeding or biliary drainage seen. The fascia at the 12 millimeter site was closed using a [place] 0 Vicryl stitch. The trochars were then removed. The skin at all 4 sites was closed using a 4-0 Monocryl stitch. Skin glue was utilized on the incision sites. At the end of this procedure the sponge and needle counts were correct. DISPOSITION: Stable to the recovery room
[2018-08-20] MEDS: HYDROmorphone 0.5 MG/0.5 ML SYRINGE IVP PRN ×2 (12:27→12:36)
[2018-08-20] MEDS: KETOROLAC 30 MG/ML 1 ML VIAL IVP ONE ×2 (12:30→12:34)
[2018-08-20 13:03] VITALS: RESP 18
[2018-08-20 13:49] VITALS: BP 130/77; PULSE 75
[2018-08-20] MEDS ORDERED: HYDROcodone/APAP 5-325MG 1 EACH TAB PO ONE (13:49)
== END 2018-08-20 14:12 | disposition home or self-care (01) ==
LOC: OR 09:16
PROVIDERS: ATTEND Surgery
DX: K80.10 Calculus of gallbladder with chronic cholecystitis without obstruction (principal); J45.909 Unspecified asthma, uncomplicated; R01.1 Cardiac murmur, unspecified; F31.9 Bipolar disorder, unspecified; Z86.14 Personal history of Methicillin resistant Staphylococcus aureus infection; Z82.49 Family history of ischemic heart disease and other diseases of the circulatory system; Z83.3 Family history of diabetes mellitus; Z87.891 Personal history of nicotine dependence; Z88.6 Allergy status to analgesic agent; Z88.5 Allergy status to narcotic agent; Z88.8 Allergy status to other drugs, medicaments and biological substances; Z79.1 Long term (current) use of non-steroidal anti-inflammatories (NSAID)
CPT/HCPCS: 81025; 88304; 47562; J2250; J1644; J1100; J2710; J2405; J2001; J3010; J1885; J0330; J2704; J1170; J0690

== ENCOUNTER 2018-08-24 14:14 | Emergency (ER) | payer OTHER ==
[2018-08-24] MEDS ORDERED: SODIUM CHLORIDE 0.9% 1,000 ML IV STA (14:38)
--- NOTE | 2018-08-24 14:46 | ED ---
General Adult HPI - General Source: patient, RN notes reviewed, old records reviewed Mode of arrival: ambulatory Limitations: no limitations <Kishor Nava - Last Filed: 08/24/18 14:42> <Jose R Lim - Last Filed: 08/24/18 19:34> - General Chief complaint: Abdominal Pain Stated complaint: post Gallbladder surgery pain Time Seen by Provider: 08/24/18 14:22 - History of Present Illness Initial comments: Patient 28-year-old female presented to the emergency room status post cholecystectomy 4 days, presented to the emergency room today with a chief complaint of increased abdominal pain. Patient does admit to feeling pain from the bellybutton up to the epigastric area. She does admit that she's been using pain medication of [place] also ibuprofen at home with little relief of symptoms. Patient does admit that when she stands up she feeling very weak and dizzy. Patient states appetites been good at home. Patient denies any other complaints currently. Patient denies any recent fever, chills, chest pain, back pain, nausea or vomiting, numbness or tingling, dysuria or hematuria, constipation or diarrhea, headaches or visual changes, or any other complaints. (Kishor Nava) - Related Data Home Medications Medication Instructions Recorded Confirmed No Known Home Medications 08/24/18 08/24/18 Allergies Allergy/AdvReac Type Severity Reaction Status Date / Time aspirin Allergy Rash/Hives Verified 08/24/18 14:36 cinnamon Allergy Anaphylaxis Verified 08/24/18 14:36 molasses Allergy Anaphylaxis Verified 08/24/18 14:36 amphetamine aspartate AdvReac Hallucinati Verified 08/24/18 14:36 [From Adderall] ons amphetamine sulfate AdvReac Hallucinati Verified 08/24/18 14:36 [From Adderall] ons benztropine mesylate AdvReac Hallucinati Verified 08/24/18 14:36 [From Cogentin] ons codeine AdvReac Hallucinati Verified 08/24/18 14:36 ons dextroamphetamine saccharate AdvReac Hallucinati Verified 08/24/18 14:36 [From Adderall] ons dextroamphetamine sulfate AdvReac Hallucinati Verified 08/24/18 14:36 [From Adderall] ons lamotrigine [From Lamictal] AdvReac Rash/Hives Verified 08/24/18 14:36 [place] Allergy Anaphylaxis Uncoded 08/24/18 14:19 nutmeg Allergy Anaphylaxis Uncoded 08/24/18 14:19 spices Allergy Anaphylaxis Uncoded 08/24/18 14:19 Review of Systems ROS Other: All systems not noted in ROS Statement are negative. <ElijahKishor - Last Filed: 08/24/18 14:42> ROS Other: All systems not noted in ROS Statement are negative. <Jose R iLm - Last Filed: 08/24/18 19:34> ROS Statement: Those systems with pertinent positive or pertinent negative responses have been documented in the HPI. Past Medical History Past Medical History: Asthma Additional Past Medical History / Comment(s): heart murmur. OB history: 5 previous miscarriages with no D&C, one ectopic requiring x-lap with removal of fallopian tube, iron defeciency anemia History of Any Multi-Drug Resistant Organisms: MRSA Date of last positivie culture/infection: 2010 MDRO Source:: Left Knee Past Surgical History: Section Additional Past Surgical History / Comment(s): tube removal, lumpectomy from neck, D&C, Gallbladder Past Anesthesia/Blood Transfusion Reactions: No Reported Reaction Additional Past Anesthesia/Blood Transfusion Reaction / Comment(s): "hard time waking up" Past Psychological History: Anxiety, Bipolar, Depression Smoking Status: Former smoker Past Alcohol Use History: None Reported Past Drug Use History: None Reported - Past Family History Mother Family Medical History: Congestive Heart Failure (CHF) Additional Family Medical History / Comment(s): Artificial heart valve. heart transplant- <NavaKishor - Last Filed: 08/24/18 14:42> General Exam Limitations: no limitations <ElijahKishor - Last Filed: 08/24/18 14:42> - General Exam Comments Initial Comments: General: The patient is awake and alert, in no distress, and does not appear acutely ill. Eye: There is normal conjunctiva bilaterally. No signs of icterus. Ears, nose, mouth and throat: There are moist mucous membranes and no oral lesions. Neck: The neck is supple. Cardiovascular: There is a regular rate and rhythm. No murmur, rub or gallop is appreciated. Respiratory: Lungs are clear to auscultation, respirations are non-labored, breath sounds are equal. No wheezes, stridor, rales, or rhonchi. Gastrointestinal: Surgical incisions are healing well. Patient does have tend erness to palpation epigastric and right upper quadrant. No rebound, guarding. Musculoskeletal: Normal ROM, no tenderness. Strength 5/5. Sensation intact. Pulses equal bilaterally 2+. Neurological: A&O x 3. CN II-XII intact, There are no obvious motor or sensory deficits. Coordination appears grossly intact. Speech is normal. Skin: Skin is warm and dry and no rashes or lesions are noted. Psychiatric: Cooperative, appropriate mood & affect, normal judgment. (Kishor Nava) Course Vital Signs 08/24/18 08/24/18 14:17 19:15 Temperature 98.1 F 98.0 F Pulse Rate 94 75 Respiratory 20 16 Rate Blood Pressure 121/63 119/58 O2 Sat by Pulse 99 98 Oximetry Medical Decision Making - Lab Data Result diagrams: 08/24/18 14:55 08/24/18 14:55 <Jose R Lim - Last Filed: 08/24/18 19:34> - Medical Decision Making 28 -year-old female presenting with abdominal pain. I did evaluate this patient's in the emergency department after she was seen by the physician a ssistcherelle. She had minimal abdominal tenderness, no rebound or guarding, no signs of infection in surgical incisions. Vital signs are stable otherwise well-appearing. I discussed case with Dr. Medrano, recommended HIDA scan. This was performed in the emergency department, negative for bile leak, no acute findings. I discussed case With Dr. Medrano, and reevaluated the patient. Ultimately patient was offered computed tomography scan for further evaluation versus home with outpatient follow-up. Patient declines further imaging, she is feeling well enough and prefers to be discharged. She will follow-up with no surgery in the morning. She will be presenting with worsening or changing symptoms. (Jose R Lim) - Lab Data Lab Results 08/24/18 08/24/18 08/24/18 Range/Units 14:55 14:55 15:00 WBC 11.7 H (3.8-10.6) k/uL RBC 4.99 (3.80-5.40) m/uL Hgb 11.9 (11.4-16.0) gm/dL Hct 38.3 (34.0-46.0) % MCV 76.8 L (80.0-100.0) fL MCH 23.9 L (25.0-35.0) pg MCHC 31.1 (31.0-37.0) g/dL RDW 18.4 H (11.5-15.5) % Plt Count 564 H (150-450) k/uL Neutrophils % 69 % Lymphocytes % 20 % Monocytes % 6 % Eosinophils % 3 % Basophils % 1 % Neutrophils # 8.0 H (1.3-7.7) k/uL Lymphocytes # 2.4 (1.0-4.8) k/uL Monocytes # 0.7 (0-1.0) k/uL Eosinophils # 0.4 (0-0.7) k/uL Basophils # 0.1 (0-0.2) k/uL Hypochromasia Slight Anisocytosis Slight Microcytosis Slight Sodium 140 (137-145) mmol/L Potassium 5.0 (3.5-5.1) mmol/L Chloride 103 (98-107) mmol/L Carbon Dioxide 28 (22-30) mmol/L Anion Gap 9 mmol/L BUN 12 (7-17) mg/dL Creatinine 0.56 (0.52-1.04) mg/dL Est GFR (CKD-EPI)AfAm >90 (>60 ml/min/1.73 sqM) Est GFR (CKD-EPI)NonAf >90 (>60 ml/min/1.73 sqM) Glucose 95 (74-99) mg/dL Calcium 10.2 (8.4-10.2) mg/dL Total Bilirubin 0.4 (0.2-1.3) mg/dL AST 34 (14-36) U/L ALT 37 (9-52) U/L Alkaline Phosphatase 111 (38-126) U/L Total Protein 8.1 (6.3-8.2) g/dL Albumin 4.8 (3.5-5.0) g/dL Amylase 59 (30-110) U/L Lipase 56 (23-300) U/L Urine Color Light Yellow Urine Appearance Cloudy H (Clear) Urine pH 6.5 (5.0-8.0) Ur Specific [place] 1.012 (1.001-1.035) Urine Protein Negative (Negative) Urine Glucose (UA) Negative (Negative) Urine Ketones Negative (Negative) Urine Blood Small H (Negative) Urine Nitrite Negative (Negative) Urine Bilirubin Negative (Negative) Urine Urobilinogen <2.0 (<2.0) mg/dL Ur Leukocyte Esterase Large H (Negative) Urine RBC 2 (0-5) /hpf Urine WBC 8 H (0-5) /hpf Ur Squamous Epith Cells 16 H (0-4) /hpf Urine Bacteria Rare H (None) /hpf Urine Mucus Rare H (None) /hpf Disposition <Kishor Nava - Last Filed: 08/24/18 14:42> Is patient prescribed a controlled substance at d/c from ED?: No Time of Disposition: 19:34 <Jose R Lim - Last Filed: 08/24/18 19:34> Clinical Impression: Abdominal pain Disposition: HOME SELF-CARE Instructions (If sedation given, give patient instructions): Abdominal Pain (ED) Referrals: Nasir Thompson DO [Primary Care Provider] - 1-2 days Kishor Medrano MD [Medical Doctor] - 1-2 days
[2018-08-24 15:13] LABS: Anisocytosis Slight; Basophils # (A) 0.1 k/uL (0-0.2); Basophils % (A) 1 %; Eosinophils # (A) 0.4 k/uL (0-0.7); Eosinophils % (A) 3 %; HCT 38.3 % (34.0-46.0); HGB 11.9 gm/dL (11.4-16.0); Hypochromasia Slight; Lymphocytes # (A) 2.4 k/uL (1.0-4.8); Lymphocytes % (A) 20 %; MCH 23.9 pg (25.0-35.0); MCHC 31.1 g/dL (31.0-37.0); MCV 76.8 fL (80.0-100.0); Mean Platelet Volume 6.6; Microcytosis Slight; Monocytes # (A) 0.7 k/uL (0-1.0); Monocytes % (A) 6 %; Neutrophils % (A) 69 %; Platelet Count 564 k/uL (150-450); RBC 4.99 m/uL (3.80-5.40); RDW 18.4 % (11.5-15.5); WBC 11.7 k/uL (3.8-10.6)
--- NOTE | 2018-08-24 15:18 | XR ---
EXAMINATION TYPE: XR KUB DATE OF EXAM: 08/24/2018 COMPARISON: NONE HISTORY: Pain TECHNIQUE: One view abdominal series FINDINGS: The osseous structures are intact. The bowel gas pattern is nonspecific. Lung bases are clear. Surg ical clips in the right upper quadrant noted. Curvature the spine noted. Retained fecal debris throug hout the colon correlate for constipation. IMPRESSION: 1. Nonspecific abdomen.
[2018-08-24 15:20] LABS: Appearance,Urine Cloudy (Clear); Bacteria,Urine Rare /hpf; Bilirubin,Urine Negative (Negative); Blood,Urine Small (Negative); Color,Urine Light Yellow; Glucose,Urine (UA) Negative (Negative); Ketones,Urine Negative (Negative); Leukocyte Esterase,Urine Large (Negative); Mucus,Urine Rare /hpf; Nitrite,Urine Negative (Negative); PH, Urine 6.5 (5.0-8.0); Protein,Urine Negative (Negative); RBC,Urine 2 /hpf (0-5); Specific Gravity,Urine 1.012 (1.001-1.035); Squamous Epithelial Cell,Urine 16 /hpf (0-4); Urobilinogen,Urine <2.0 mg/dL (<2.0)
[2018-08-24 15:24] LABS: ALT 37 U/L (9-52); AST 34 U/L (14-36); Albumin 4.8 g/dL (3.5-5.0); Alkaline Phosphatase 111 U/L (38-126); Amylase 59 U/L (30-110); Anion Gap 9 mmol/L; Blood Urea Nitrogen 12 mg/dL (7-17); Calcium 10.2 mg/dL (8.4-10.2); Carbon Dioxide 28 mmol/L (22-30); Chloride 103 mmol/L (98-107); Glucose 95 mg/dL (74-99); Lipase 56 U/L (23-300); Sodium 140 mmol/L (137-145); Total Bilirubin 0.4 mg/dL (0.2-1.3); Total Protein 8.1 g/dL (6.3-8.2)
[2018-08-24] MEDS ORDERED: MORPHINE SULFATE 4 MG/ML SYRINGE IV STA (15:42)
[2018-08-24] MEDS ORDERED: ONDANSETRON 4 MG/2 ML VIAL IVP STA (15:42)
[2018-08-24] MEDS ORDERED: SODIUM CHLORIDE 0.9% 1,000 ML IV ONE (16:35)
[2018-08-24 19:16] VITALS: BP 119/58; PULSE 75; RESP 16; TEMP 98
--- NOTE | 2018-08-24 19:20 | NM ---
EXAMINATION TYPE: NM hepatobiliary wo EF DATE OF EXAM: 08/24/2018 COMPARISON: NONE HISTORY: Pain; cholecystectomy 08/20/2018. Assess for biliary leak. TECHNIQUE: Department protocol. After the intravenous administration of 5.18 mCi Tc 99m Mebrofenin he patobiliary scintigraphy is performed. Immediate images post injection. FINDINGS: There is prompt radiopharmaceutical activity throughout the liver and biliary tree and prox imal small bowel. There is no evidence of extraluminal radiopharmaceutical activity to suggest biliary leak. IMPRESSION: Exam is within normal limits.
== END 2018-08-24 20:04 | disposition home or self-care (01) ==
LOC: EC 14:14
DX: R10.13 Epigastric pain (principal); R10.33 Periumbilical pain; R42 Dizziness and giddiness; R53.1 Weakness; Z87.891 Personal history of nicotine dependence; Z88.5 Allergy status to narcotic agent; Z88.6 Allergy status to analgesic agent; Z88.8 Allergy status to other drugs, medicaments and biological substances; Z91.018 Allergy to other foods; Z86.14 Personal history of Methicillin resistant Staphylococcus aureus infection; Z90.49 Acquired absence of other specified parts of digestive tract; Z53.20 Procedure and treatment not carried out because of patient's decision for unspecified reasons
CPT/HCPCS: 99284; 96374; 96375; 96361 ×2; 36415; 80053; 82150; 83690; 85025; 81001; 74018; 78226; A9537; J2270; J2405

== ENCOUNTER → 2018-12-16 | Outpatient (CLI) | payer OTHER ==
--- NOTE | 2018-12-17 09:08 | US ---
EXAMINATION TYPE: US pelvis complete transvag DATE OF EXAM: 12/16/2018 COMPARISON: US CLINICAL HISTORY: R10.2 Pelvic pain. Pain x 3 months since start of control. Hx ectopic pregnan cy, tubal rupture, left fallopian tube removed. LMP unknown. . TECHNIQUE: Transvaginal (TV) and Transabdominal (TA) . Transabdominal sonographic images of the pel vis were acquired. Transvaginal sonographic images were medically necessary to better assess the fol lowing anatomy: ovaries Date of LMP: Unknown EXAM MEASUREMENTS: Uterus: 8.0 x 6.1 x 4.2 cm Endometrial Stripe: 0.46 cm Right Ovary: 4.0 x 1.9 x 2.1 cm Left Ovary: 3.4 x 2.1 x 1.6 cm 1. Uterus: Retroverted. appears wnl 2. Endometrium: Anechoic area seen in cervix (appears to be fluid) measurin.2 x 0.6 x 0.2 cm. 3. Right Ovary: Anechoic area seen measurin.1 x 1.1 x 1.0 cm. 4. Left Ovary: Anechoic area with debris seen measurin.5 x 1.1 x 1.1 cm. Hyperechoic area seen m easurin.6 x 0.5 x 0.5 cm. 5. Bilateral Adnexa: appear wnl 6. Posterior cul-de-sac: appears wnl IMPRESSION: 1. Appears to be a small amount of fluid within the endometrium indeterminate etiology correlate with the phase of patient's menstrual silhouette. 2. Left ovary contains a 1.5 cm complicated cyst likely on the basis of a hemorrhagic cyst. There is an additional 6 mm hyperechoic lesion which likely represents a small dermoid.
== END | disposition home or self-care (01) ==
LOC: RADUSMAIN 17:52
PROVIDERS: ATTEND Obstetrics & Gynecology
DX: N83.202 Unspecified ovarian cyst, left side (principal)
CPT/HCPCS: 76830; 76856

== ENCOUNTER → 2019-02-24 | Outpatient (CLI) | payer OTHER ==
--- NOTE | 2019-02-24 15:06 | US ---
EXAMINATION TYPE: US pelvis complete transvag DATE OF EXAM: 02/24/2019 COMPARISON: NONE CLINICAL HISTORY: N83.0 Ovarian cyst-left. Pelvic pain. History of ovarian cysts. Ectopic 2 011. Prior 07/06 TECHNIQUE: Transvaginal (TV) and Transabdominal (TA) . Transabdominal sonographic images of the pel vis were acquired. Transvaginal sonographic images were medically necessary to better assess the fol lowing anatomy: ovaries Date of LMP: 02/18/19 EXAM MEASUREMENTS: Uterus: 7.2 x 4.2 x 6.3 cm Endometrial Stripe: 0.5 cm Right Ovary: 4.2 x 1.7 x 2.4 cm Left Ovary: 3.9 x 1.9 x 1.8 cm 1. Uterus: Retroverted wnl 2. Endometrium: appears wnl 3. Right Ovary: follicles noted 4. Left Ovary: dominant follicle = 1.6 x 1.7cm containing internal echoes appearing as a retracted c lot. Small reactive follicle. Lesion, likely 5. Bilateral Adnexa: appears wnl 6. Posterior cul-de-sac: wnl IMPRESSION: Physiologic bilateral ovarian follicles with dominant follicle on the left measuring only 1.6 cm containing a retracted clot, possible prior hemorrhagic cyst. Additional smaller hyperechoic follicle likely represents a small hemorrhagic follicle. Otherwise unremarkable pelvic ultrasound.
== END | disposition home or self-care (01) ==
LOC: RADUSWWP 13:40
PROVIDERS: ATTEND Obstetrics & Gynecology
DX: N83.202 Unspecified ovarian cyst, left side (principal)
CPT/HCPCS: 76830; 76856

== ENCOUNTER → 2019-06-09 | Outpatient (CLI) | payer OTHER ==
--- NOTE | 2019-06-09 14:24 | US ---
EXAMINATION TYPE: US pelvis complete transvag DATE OF EXAM: 06/09/2019 COMPARISON: NONE CLINICAL HISTORY: 29-year-old female R10.2 Pelvic Pain, N83.0 Lt ovarian cyst. History of dominant fo llicles but patient is having painful intercourse, patient had syncopal episode during last intercour se TECHNIQUE: TA/TV. Transabdominal sonographic images of the pelvis were acquired. Transvaginal sono graphic images were medically necessary to better assess the following anatomy: ovaries Date of LMP: april, unknown exact date FINDINGS: EXAM MEASUREMENTS: Uterus: 7.2 x 4.6 x 4.0 cm Endometrial Stripe: 0.4 cm Right Ovary: 3.7 x 2.2 x 1.6 cm Left Ovary: 2.5 x 1.7 x 1.8cm 1. Uterus: Retroverted and otherwise wnl 2. Endometrium: wnl 3. Right Ovary: wnl 4. Left Ovary: wnl 5. Bilateral Adnexa: wnl 6. Posterior cul-de-sac: wnl IMPRESSION: Retroverted uterus. Otherwise, unremarkable sonographic examination of the pelvis.
== END ==
LOC: RADUSWWP 11:02
PROVIDERS: ATTEND Obstetrics & Gynecology
DX: N85.4 Malposition of uterus (principal)
CPT/HCPCS: 76830; 76856

== ENCOUNTER → 2020-03-05 | Outpatient (CLI) | payer OTHER | END | disposition home or self-care (01) | LOC: LABWHC1 11:48 | PROVIDERS: ATTEND Family Medicine | DX: Z20.828 Contact with and (suspected) exposure to other viral communicable diseases (principal) | CPT/HCPCS: U0003; C9803 ==

== ENCOUNTER 2020-09-03 10:38 | Emergency (ER) | payer OTHER ==
[2020-09-03 10:43] VITALS: BP 131/80; PULSE 96; RESP 18; TEMP 98
[2020-09-03] MEDS ORDERED: LIDOCAINE 1% INJ 10MG/ML (20 ML MDV) SQ ONE ×2 (10:53→12:05)
[2020-09-03] MEDS ORDERED: ACETAMINOPHEN TAB 325 MG TAB PO STA (10:53)
--- NOTE | 2020-09-03 10:59 | ED ---
Skin/Abscess/FB HPI - General Chief complaint: Skin/Abscess/Foreign Body Stated complaint: Infected finger Time Seen by Provider: 09/03/20 10:47 Source: patient, RN notes reviewed Mode of arrival: ambulatory Limitations: no limitations - History of Present Illness Initial comments: Patient is a 30-year-old female presents to emergency department with left index finger infection. She notes that she regularly gets little cyst abscess. She notes that she tried poking it and squeezing it on her own. 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 She notes she also tried using antibiotic ointment that she had left over from one of her son's injuries. She notes that overnight a few white spots appeared on the pad of her left index finger where she tried poking and draining a spot herself. She notes that her entire finger is slightly tender and swollen secondary to the spot of the abscess. She did state that she has decreased range of motion secondary to pain and swelling. She noted that she did have some moderate pain. She denied any numbness tingling in that left index finger chest pain shortness of breath headache nausea vomiting diarrhea constipation fever fatigue chills - Related Data Home Medications Medication Instructions Recorded Confirmed Multivitamins, Thera [Multivitamin 1 tab PO DAILY 09/03/20 09/03/20 (formulary)] Previous Rx's Medication Instructions Recorded Cephalexin [Keflex] 500 mg PO Q6HR #40 cap 09/03/20 Sulfamethox-Tmp 800-160Mg [Bactrim 1 tab PO Q12HR 10 Days #20 tab 09/03/20 DS 800-160 mg] Allergies Allergy/AdvReac Type Severity Reaction Status Date / Time aspirin Allergy Rash/Hives Verified 09/03/20 11:03 cinnamon Allergy Anaphylaxis Verified 09/03/20 11:03 lamotrigine [From Lamictal] Allergy Rash/Hives Verified 09/03/20 11:03 molasses Allergy Anaphylaxis Verified 09/03/20 11:03 amphetamine aspartate AdvReac Hallucinati Verified 09/03/20 11:03 [From Adderall] ons amphetamine sulfate AdvReac Hallucinati Verified 09/03/20 11:03 [From Adderall] ons benztropine mesylate AdvReac Hallucinati Verified 09/03/20 11:03 [From Cogentin] ons codeine AdvReac Hallucinati Verified 09/03/20 11:03 ons dextroamphetamine saccharate AdvReac Hallucinati Verified 09/03/20 11:03 [From Adderall] ons dextroamphetamine sulfate AdvReac Hallucinati Verified 09/03/20 11:03 [From Adderall] ons BR[place]GAR Allergy Anaphylaxis Uncoded 09/03/20 10:43 nutmeg Allergy Anaphylaxis Uncoded 09/03/20 10:43 spices Allergy Anaphylaxis Uncoded 09/03/20 10:43 Review of Systems ROS Statement: Those systems with pertinent positive or pertinent negative responses have been documented in the HPI. ROS Other: All systems not noted in ROS Statement are negative. Past Medical History Past Medical History: Asthma Additional Past Medical History / Comment(s): heart murmur. OB history: 5 previous miscarriages with no D&C, one ectopic requiring x-lap with removal of fallopian tube, iron defeciency anemia History of Any Multi-Drug Resistant Organisms: MRSA Date of last positivie culture/infection: 2010 MDRO Source:: Left Knee Past Surgical History: Section Additional Past Surgical History / Comment(s): tube removal, lumpectomy from neck, D&C, Gallbladder Past Anesthesia/Blood Transfusion Reactions: No Reported Reaction Additional Past Anesthesia/Blood Transfusion Reaction / Comment(s): "hard time waking up" Past Psychological History: Anxiety, Bipolar, Depression Smoking Status: Never smoker Past Alcohol Use History: None Reported Past Drug Use History: None Reported - Past Family History Mother Family Medical History: Congestive Heart Failure (CHF) Additional Family Medical History / Comment(s): Artificial heart valve. heart transplant- General Exam Limitations: no limitations General appearance: alert, in no apparent distress Head exam: Present: atraumatic, normocephalic, normal inspection Eye exam: Present: normal appearance, PERRL, EOMI. Absent: scleral icterus, conjunctival injection, periorbital swelling Respiratory exam: Present: normal lung sounds bilaterally. Absent: respiratory distress, wheezes, rales, rhonchi, stridor Cardiovascular Exam: Present: regular rate, normal rhythm, normal heart sounds. Absent: systolic murmur, diastolic murmur, rubs, gallop, clicks Extremities exam: Present: normal inspection, tenderness (Left index finger at the distal pad at site of abscess), normal capillary refill. Absent: full ROM (Decreased range of motion left index finger secondary to pain.), pedal edema, joint swelling, calf tenderness Neurological exam: Present: alert, oriented X3, CN II-XII intact Psychiatric exam: Present: normal affect, normal mood Skin exam: Present: warm, dry, intact, normal color, other (Left index finger pad abscess with multiple white areas noted). Absent: rash Course Vital Signs 09/03/20 10:40 Temperature 98 F Pulse Rate 96 Respiratory 18 Rate Blood Pressure 131/80 O2 Sat by Pulse 97 Oximetry Procedures - Incision & Drainage Consent Obtained: verbal consent Site: hand (Rest index finger) Size (cm): 1 Anesthetic Used: lidocaine 1% I&D Cleaning Method: Alcohol Wipe Sterile Field Used?: Yes Scalpel Used: #11 I&D Drainage Obtained: Pus, Blood Culture Obtained?: Yes Patient Tolerated Procedure: well, no complications Medical Decision Making - Medical Decision Making 30-year-old female with index finger abscess, pain, swelling. 650 mg of Tylenol, 1% lidocaine ordered. Patient handled incision and drainage well. 1 mg of Dilaudid ordered for pain. Case discussed with Dr. Campuzano, patient discharge home on antibiotics. Disposition Clinical Impression: Felon of finger of left hand Disposition: HOME SELF-CARE Condition: Stable Instructions (If sedation given, give patient instructions): Abscess (ED) Additional Instructions: Please return to the Emergency Department if symptoms worsen or any other concerns. Take antibiotics as prescribed. Incision will continue to drain for the next several days. Follow-up with primary care as needed. Prescriptions: Sulfamethox-Tmp 800-160Mg [Bactrim DS 800-160 mg] 1 tab PO Q12HR 10 Days #20 tab Cephalexin [Keflex] 500 mg PO Q6HR #40 cap Is patient prescribed a controlled substance at d/c from ED?: No Referrals: Nasir Thompson DO [Primary Care Provider] - 1-2 days Time of Disposition: 12:40
[2020-09-03] MEDS ORDERED: HYDROmorphone 1 MG/ML 1 ML SYRINGE IVP STA (12:01)
== END 2020-09-03 12:42 | disposition home or self-care (01) ==
LOC: EC 10:38
DX: L03.012 Cellulitis of left finger (principal); B95.62 Methicillin resistant Staphylococcus aureus infection as the cause of diseases classified elsewhere; J45.909 Unspecified asthma, uncomplicated; F41.9 Anxiety disorder, unspecified; F32.9 Major depressive disorder, single episode, unspecified
CPT/HCPCS: 87070; 87205; 99282; 96374; 26010; J2001; J1170; 87077; 87186

== ENCOUNTER → 2021-01-25 | Outpatient (CLI) | payer OTHER ==
--- NOTE | 2021-01-25 16:33 | XR ---
Right shoulder HISTORY: Right shoulder pain Correlation to prior exam right humerus 05/15/2011 3 views of the right shoulder There is acromioclavicular joint arthropathy present. Sclerotic density within the right humeral head is stable. Distal acromion is down turned. No fracture or dislocation. There are overlying artifacts . Right lung apex as visualized is normal. IMPRESSION: Correlate for possible shoulder impingement. There is acromioclavicular joint arthropathy .
== END | disposition home or self-care (01) ==
LOC: RADXRMAIN 14:11
PROVIDERS: ATTEND Family Medicine
DX: M19.011 Primary osteoarthritis, right shoulder (principal)

== ENCOUNTER → 2024-03-13 | Outpatient (CLI) | payer OTHER ==
--- NOTE | 2024-03-13 10:41 | MR ---
EXAMINATION TYPE: MR shoulder RT wo con DATE OF EXAM: 03/13/2024 10:31 AM COMPARISON: None. CLINICAL INDICATION: Female, 33 years old with history of M25.511 PAIN IN RIGHT SHOULDER M75.41 IMPIN GEMENT, Right shoulder pain, decreased ROM x 4 yrs. TECHNIQUE: Multiplanar, multisequence imaging of the right shoulder is performed without contrast. FINDINGS: There is no bone contusion or fracture. There is minimal osteoarthritic change of the AC joint. The g lenohumeral joint is intact and there is no joint effusion. There is an intrasubstance tear extending to the inferior surface of the supraspinatus tendon approxi mately 1 to 2 cm proximal to its insertion. There is no retraction of the musculotendinous junction The infraspinatus and subscapularis tendons are intact. The biceps tendon is normal in signal intensity and position within the bicipital groove and the corky ps anchor is intact. There is no labral tear. There is no subacromial or subdeltoid bursitis. IMPRESSION: 1. Rotator cuff tear, Intrasubstance tear extending to the inferior surface of the supraspinatus ten don without retraction. 2. Mild osteoarthritic change of AC joint. 3. No labral injury. 4. No biceps tendon abnormality [facility], , 03/13/2024 10:39 AM
== END | disposition home or self-care (01) ==
LOC: RADMRIMAIN 09:34
PROVIDERS: ATTEND Family Medicine
DX: M19.011 Primary osteoarthritis, right shoulder (principal); M75.101 Unspecified rotator cuff tear or rupture of right shoulder, not specified as traumatic; M75.41 Impingement syndrome of right shoulder

== ENCOUNTER 2024-05-02 10:41 | Day surgery (SDC) | payer OTHER ==
[~2024-05-02 10:41] MED LIST changes: -DEXAMETHASONE SOD PHOSPHATE 10 MG/ML 1 ML VIAL IV ONE; -HEPARIN SODIUM,PORCINE 5,000 UNIT/ML 1 ML VIAL SQ ONE; -LACTATED RINGERS 1,000 ML IV SCH; +LIDOCAINE 1% (10MG/ML) FOR IV START INTRADERMA PRN; -MIDAZOLAM 2 MG/2 ML VIAL IV PRN; -ONDANSETRON 4 MG/2 ML VIAL IVP ONE; -ceFAZolin IN SWFI 2 GM/20 ML SYRINGE IVP ONE; +droPERidol 5 MG/2 ML VIAL IVP ONE
[2024-05-02] MEDS: IV FLUID CONTINUATION 1,000 ML IV ONE ×2 (11:25→15:11)
[2024-05-02 11:28] LABS: Glucose,Whole Blood 100 mg/dL (70-110)
[2024-05-02] MEDS: MIDAZOLAM 2 MG/2 ML VIAL IV ONE (11:29)
[2024-05-02] MEDS: ONDANSETRON 4 MG/2 ML VIAL IVP ONE (11:38)
[2024-05-02] MEDS: LACTATED RINGERS 1,000 ML IV SCH (11:38)
[2024-05-02] MEDS ORDERED: DEXAMETHASONE SOD PHOSPHATE 4 MG/ML 1 ML VIAL ONE (12:19)
[2024-05-02] MEDS ORDERED: fentaNYL (PF) 50 MCG/ML 2 ML AMP ONE (12:19)
[2024-05-02] MEDS ORDERED: HYDROmorphone (PF) 1 MG/ML ONE (12:19)
[2024-05-02] MEDS ORDERED: PROPOFOL 10 MG/ML 20 ML VIAL IV ONE (12:19)
[2024-05-02] MEDS ORDERED: LIDOCAINE 1% INJ 10MG/ML (20 ML MDV) ONE (12:19)
[2024-05-02] MEDS ORDERED: LIDOCAINE 4% LTA KIT (4 ML) TOPICAL ONE (12:19)
[2024-05-02] MEDS ORDERED: SUCCINYLCHOLINE CHLORIDE 200 MG/10 ML VIAL IV ONE (12:19)
[2024-05-02] MEDS ORDERED: MIDAZOLAM 2 MG/2 ML VIAL ONE (12:19)
[2024-05-02] MEDS ORDERED: ROPIVACAINE 5 MG/ML 30 ML VIAL ONE (12:19)
[2024-05-02] MEDS: EPINEPHrine (PF) 1 ML in SODIUM CHLORIDE 0.9% IRRIGATIO 3,000 ML IRRIGATION ONE (13:00)
[2024-05-02 13:56] VITALS: TEMP 97.1
[2024-05-02] MEDS: HYDROmorphone 0.5 MG/0.5 ML SYRINGE IVP PRN (14:31)
[2024-05-02 14:40] LABS: Glucose,Whole Blood 113 mg/dL (70-110)
--- NOTE | 2024-05-02 14:47 | P.ANPRN ---
Procedure Note - Anesthesia - Nerve Block Performed Right Interscalene Single Time Out Performed: Yes Date of Procedure: 05/02/24 Procedure Start Time: : Procedure Stop Time: :35 Location of Patient: PreOp Indication: Acute Post-Operative Pain, Requested by Surgeon Sedation Type: Sedate with meaningful contact maintained Preparation: Sterile Prep Position: Supine Needle Types: Pajunk Needle Gauge: 21 Ultrasound used to visualize needle placement: Yes Ultrasound used to observe medication spread: Yes Blood Aspirated: No Pain Paresthesia on Injection Noted: No Resistance on Injection: Normal Image Stored and Saved: Yes Events: Uneventful and Well Tolerated (Ropivacaine 0.5% 20 cc plus dexamethasone 4 mg)
[2024-05-02 15:14] VITALS: RESP 16
[2024-05-02] MEDS: HYDROcodone/APAP 5-325MG 1 EACH TAB PO PRN (15:22)
[2024-05-02 15:24] VITALS: BP 106/69; PULSE 89
--- NOTE | 2024-05-03 15:34 | P.OP ---
Date of Procedure: 05/02/24 Preoperative Diagnosis: Right shoulder rotator cuff tear Postoperative Diagnosis: Right shoulder partial rotator cuff tear Procedure(s) Performed: Right shoulder diagnostic and surgical arthroscopy, subacromial decompression, rotator cuff debridement. Anesthesia: regional Surgeon: Alix Foster Wheel And Axle Inspector #1: Yisel Avendano Estimated Blood Loss (ml): 10 Pathology: none sent Condition: stable Disposition: PACU Indications for Procedure: Patient has failed conservative therapy of injections and PT for an intrasubstance rotator cuff tear. She elects to proceed with a diagnostic and surgical arthroscopy. Description of Procedure: The patient, operative extremity, and procedure were identified in the preop holding area. After informed consent was obtained, the patient received a regional block by the anesthesia team. They were then brought back to the operating room. They were then placed in a lateral decubitus position with all bony prominences padded. The extremity was then prepped and draped in normal sterile fashion and suspended by 15 lbs of weight. A formal timeout was performed and the posterolateral portal was established. An 11 blade was used to make a small longitudinal incision and the trochar was inserted into the glenohumeral joint. The camera was inserted and the joint insufflated. A spinal needle was used to set the trajectory of the anterior portal and was replaced with a shaver. Examination of the glenohumeral joint revealed, no chondromalacia of the glenoid and intact biceps tendon. The undersurface of the supraspinatus tear was also evident. The subscapularis tendon was intact. A debridement of the partial tear was performed. The scope was then moved to the subacromial space. A subacromial bursectomy was performed with the shaver and arthrocare device. A lateral portal was established and a shaver was inserted. From the bursal side, the cuff was intact. There was no evidence of a full thickness tear. All instruments were removed and the portals closed with 4.0 monocryl and steristrips. Wound was dressed with a soft dressing. Patient was aroused by the anesthesia team and brought back to pacu with a shoulder abduction brace.
== END 2024-05-02 16:04 | disposition home or self-care (01) ==
LOC: OR 10:41
PROVIDERS: ATTEND Orthopaedic Surgery Hand Surgery
DX: S46.011A Strain of muscle(s) and tendon(s) of the rotator cuff of right shoulder, initial encounter (principal); J45.909 Unspecified asthma, uncomplicated; E11.9 Type 2 diabetes mellitus without complications; Z90.721 Acquired absence of ovaries, unilateral; Z90.02 Acquired absence of larynx; Z88.5 Allergy status to narcotic agent; Z88.6 Allergy status to analgesic agent; Z91.018 Allergy to other foods; Z88.8 Allergy status to other drugs, medicaments and biological substances; Z79.899 Other long term (current) drug therapy; X58.XXXA Exposure to other specified factors, initial encounter
CPT/HCPCS: 29823; 64415; J2250; J0690; J2405; J0171; J1171; 81025

== ENCOUNTER 2024-08-08 15:18 | Emergency (ER) | payer OTHER ==
--- NOTE | 2024-08-08 15:45 | ED ---
General Adult HPI - General Chief complaint: Abdominal Pain Stated complaint: ABD Pain,N/V/D Time Seen by Provider: 08/08/24 15:24 Source: patient, RN notes reviewed Mode of arrival: ambulatory Limitations: no limitations - History of Present Illness Initial comments: This is a 34-year-old female with a history of T2DM (not currently medicated), hypothyroidism, who is presenting to the emergency department [facility] complaints of nausea, vomiting, diarrhea, abdominal pain and cramping. Patient states that on Thursday she began to experience nausea and vomiting and over the past 2 days she has been experiencing loose stools that are nonbloody. Initially, yesterday patient states that she began experiencing light vaginal spotting with lower pelvic cramping. This menstrual cycle was over 9 weeks ago. Patient is [id number], with history of 5 miscarriages and 3 ectopic pregnancies with subsequent left-sided tubal removal however left ovary is still intact. - Related Data Home Medications Medication Instructions Recorded Confirmed Albuterol Sulfate [Proair Hfa] 1 - 2 puff INHALATION Q6HR PRN 09/02/21 04/29/24 ALPRAZolam [Xanax] 0.5 mg PO DIRECTED PRN 04/29/24 05/02/24 [place] 1 tab PO HS 04/29/24 05/02/24 Semaglutide [Wegovy] 1.7 mg SQ Q14D 04/29/24 04/29/24 Previous Rx's Medication Instructions Recorded HYDROcodone/APAP 5-325MG [[place] 5] 1 each PO Q6HR PRN #5 tab 05/02/24 Allergies Allergy/AdvReac Type Severity Reaction Status Date / Time aspirin Allergy Rash/Hives Verified 08/08/24 15:23 cinnamon Allergy Anaphylaxis Verified 08/08/24 15:23 lamotrigine [From Lamictal] Allergy Rash/Hives Verified 08/08/24 15:23 molasses Allergy Anaphylaxis Verified 08/08/24 15:23 amphetamine aspartate AdvReac Hallucinati Verified 08/08/24 15:23 [From Adderall] ons amphetamine sulfate AdvReac Hallucinati Verified 08/08/24 15:23 [From Adderall] ons benztropine mesylate AdvReac Hallucinati Verified 08/08/24 15:23 [From Cogentin] ons codeine AdvReac Hallucinati Verified 08/08/24 15:23 ons dextroamphetamine saccharate AdvReac Hallucinati Verified 08/08/24 15:23 [From Adderall] ons dextroamphetamine sulfate AdvReac Hallucinati Verified 08/08/24 15:23 [From Adderall] ons BROWN SUGAR Allergy Anaphylaxis Uncoded 08/08/24 15:23 nutmeg Allergy Anaphylaxis Uncoded 08/08/24 15:23 spices Allergy Anaphylaxis Uncoded 08/08/24 15:23 Review of Systems ROS Statement: Those systems with pertinent positive or pertinent negative responses have been documented in the HPI. ROS Other: All systems not noted in ROS Statement are negative. Past Medical History Past Medical History: Asthma Additional Past Medical History / Comment(s): heart murmur, iron defeciency anemia, recently tx for URI completed abx and steroids feels much better.. rt shoulder pain History of Any Multi-Drug Resistant Organisms: MRSA Date of last positivie culture/infection: 09/03/20 MDRO Source:: FINGER Past Surgical History: Section, Cholecystectomy Additional Past Surgical History / Comment(s): tube removal, lumpectomy from neck, D&C Past Anesthesia/Blood Transfusion Reactions: No Reported Reaction Additional Past Anesthesia/Blood Transfusion Reaction / Comment(s): mother in a coma after double by pass, had issues with anesthesia after several surgeries. Past Psychological History: Anxiety, Bipolar, Depression Smoking Status: Former smoker Past Alcohol Use History: None Reported Past Drug Use History: None Reported - Past Family History Mother Family Medical History: Congestive Heart Failure (CHF), Diabetes Mellitus, Deep Vein Thrombosis (DVT) Additional Family Medical History / Comment(s): Artificial heart valve depression. heart transplant- Father Family Medical History: Cancer, Myocardial Infarction ([place]) Additional Family Medical History / Comment(s): cabg. stage 4 prostate cancer. colon cancer with colon removed. General Exam Limitations: no limitations Neck exam: Present: normal inspection. Absent: tenderness, meningismus, lymphad enopathy Respiratory exam: Present: normal lung sounds bilaterally. Absent: respiratory distress, wheezes, rales, rhonchi, stridor Cardiovascular Exam: Present: regular rate, normal rhythm, normal heart sounds. Absent: systolic murmur, diastolic murmur, rubs, gallop, clicks GI/Abdominal exam: Present: soft, tenderness (pelvic), normal bowel sounds. Absent: distended, guarding, rebound, rigid Extremities exam: Present: normal inspection, full ROM, normal capillary refill. Absent: tenderness, pedal edema, joint swelling, calf tenderness Back exam: Present: normal inspection. Absent: CVA tenderness (R), CVA tenderness (L) Course Vital Signs 08/08/24 08/08/24 15:20 17:38 Temperature 98.5 F 98.0 F Pulse Rate 86 80 Respiratory 18 20 Rate Blood Pressure 123/73 118/70 O2 Sat by Pulse 97 99 Oximetry Medical Decision Making - Medical Decision Making Was pt. sent in by a medical professional or institution (, PA, CORE ASSEMBLY SUPERVISOR, urgent care, hospital, or skilled nursing...) When possible be specific @ -No Did you speak to anyone other than the patient for history (EMS, parent, family, police, friend...)? What history was obtained from this source @ -No Did you review nursing and triage notes (agree or disagree)? Why? @ -I reviewed and agree with nursing and triage notes Were old charts reviewed (outside hosp., previous admission, EMS record, old EK G, old radiological studies, urgent care reports/EKG's, skilled nursing records)? Report findings @ -No old charts were reviewed Differential Diagnosis (chest pain, altered mental status, abdominal pain women, abdominal pain men, vaginal bleeding, weakness, fever, dyspnea, syncope, headache, dizziness, GI bleed, back pain, seizure, CVA, palpatations, mental health, musculoskeletal)? @ -Differential Abdominal Pain Women: Appendicitis, Cholecystitis, diverticulosis, ischemic bowel, pancreatitis, he patitis, UTI, gastroenteritis, AAA, incarcerated hernia, bowel obstruction, constipation, inflammatory bowel, hepatitis, peptic ulcer disease, splenic infarction, perforated viscus, vulvitis, ovarian torsion, PID, kidney stone, placenta abruption, this is not meant to be an all-inclusive list EKG interpreted by me (3pts min.). @ -None X-rays interpreted by me (1pt min.). @ -None done CT interpreted by me (1pt min.). @ -None done U/S interpreted by me (1pt. min.). @ - Transvaginal ultrasound completed reveals no evidence for acute abdominal process with no evidence of torsion with a left ovarian cyst measuring 4.1 cm. What testing was considered but not performed or refused? (CT, X-rays, U/S, labs)? Why? @ -None What meds were considered but not given or refused? Why? @ -None Did you discuss the management of the patient with other professionals (professionals i.e. , PA, CORE ASSEMBLY SUPERVISOR, lab, RT, psych nurse, social worker masters, ground host/hostess, teacher, building drafting officer, rehabilitation case coordinator)? Give summary @ -No Was smoking cessation discussed for >3mins.? @ -No Was critical care preformed (if so, how long)? @ -No Were there social determinants of health that impacted care today? How? (Homele ssness, low income, unemployed, alcoholism, drug addiction, transportation, low edu. Level, literacy, decrease access to med. care, snf, rehab)? @ -No Was there de-escalation of care discussed even if they declined (Discuss DNR or withdrawal of care, Hospice)? DNR status @ -No What co-morbidities impacted this encounter? (DM, HTN, Smoking, COPD, CAD, Cancer, CVA, ARF, Chemo, Hep., AIDS, mental health diagnosis, sleep apnea, morbid obesity)? @ -None Was patient admitted / discharged? Hospital course, mention meds given and route, prescriptions, significant lab abnormalities, going to OR and other pertinent info. @ -Discharge. 34-year-old female presents emergency room with nausea, vomiting, pelvic pain. Overall patient is well-appearing. Patient's pain is reproducible to the right lower and mid pelvis with no signs of rebound tenderness or rigidity. She is provided with IV fluids and antiemetics. Laboratory test including CBC and CMP is unremarkable. Urinalysis reveals blood, hCG is negative. Acetone is negative. No signs of acidosis. Transvaginal ultrasound reveals a left ovarian cyst measuring 4.1 cm, no acute abdominal process. Patient was provided with results of today's findings instructed follow-up with human resources director or primary care provider. Return parameters discussed. Case discussed with Dr. Braxton Undiagnosed new problem with uncertain prognosis? @ -No Drug Therapy requiring intensive monitoring for toxicity (Heparin, Nitro, Insulin, Cardizem)? @ -No Were any procedures done? @ -No Diagnosis/symptom? @ -ovarian cyst, gastroenteritis Acute, or Chronic, or Acute on Chronic? @ -acute Uncomplicated (without systemic symptoms) or Complicated (systemic symptoms)? @ -uncomplicated Side effects of treatment? @ -No Exacerbation, Progression, or Severe Exacerbation? @ -No Poses a threat to life or bodily function? How? (Chest pain, [place], [place], pneumonia, PE, COPD, DKA, ARF, appy, cholecystitis, CVA, Diverticulitis, Homicidal, Suicidal, threat to staff... and all critical care pts) @ -No - Lab Data Result diagrams: 08/08/24 15:46 08/08/24 15:46 Lab Results 08/08/24 08/08/24 08/08/24 Range/Units 15:46 15:46 15:46 WBC 10.01 H (4.50-10.00) 10*3/uL RBC 4.58 (4.10-5.20) 10*6/uL Hgb 13.4 (12.0-15.0) g/dL Hct 39.9 (37.2-46.3) % MCV 87.1 (80.0-97.0) fL MCH 29.3 (27.0-32.0) pg MCHC 33.6 (32.0-37.0) g/dL Plt Count 559 H (140-440) 10*3/uL MPV 9.2 L (9.5-12.2) fL Immature Gran % (Auto) 0.2 % Neutrophils % 63.2 % Lymphocytes % 24.6 % Monocytes % 8.8 % Eosinophils % 2.4 % Basophils % 0.8 % Immature Gran # 0.02 (0.00-0.04) 10*3/uL Neutrophils # 6.33 (1.80-7.70) 10*3/uL Lymphocytes # 2.46 (0.90-5.00) 10*3/uL Monocytes # 0.88 (0.20-1.00) 10*3/uL Eosinophils # 0.24 (0.04-0.35) 10*3/uL Basophils # 0.08 (0.00-0.10) 10*3/uL Sodium (137-145) mmol/L Potassium (3.5-5.1) mmol/L Chloride (98-107) mmol/L Carbon Dioxide (22-30) mmol/L Anion Gap mmol/L BUN (7-17) mg/dL Creatinine (0.52-1.04) mg/dL Est GFR (CKD-EPI)AfAm (>60 ml/min/1.73 sqM) Est GFR (CKD-EPI)NonAf (>60 ml/min/1.73 sqM) Glucose (74-99) mg/dL Calcium (8.4-10.2) mg/dL Magnesium (1.6-2.3) mg/dL Total Bilirubin (0.2-1.3) mg/dL AST (14-36) U/L ALT (4-34) U/L Alkaline Phosphatase (38-126) U/L Total Protein (6.3-8.2) g/dL Albumin (3.5-5.0) g/dL Lipase (23-300) U/L Urine Color Yellow Urine Appearance Clear (Clear) Urine pH 5.5 (5.0-8.0) Ur Specific [place] 1.022 (1.001-1.035) Urine Protein Negative (Negative) Urine Glucose (UA) Negative (Negative) Urine Ketones Negative (Negative) Urine Blood Large H (Negative) Urine Nitrite Negative (Negative) Urine Bilirubin Negative (Negative) Urine Urobilinogen <2.0 (<2.0) mg/dL Ur Leukocyte Esterase Negative (Negative) Urine RBC 1 (0-5) /hpf Urine WBC 1 (0-5) /hpf Ur Squamous Epith Cells 1 (0-4) /hpf Urine Bacteria Rare H (None) /hpf Urine Mucus Few H (None) /hpf Urine HCG, Qual Not Detected (Not Detectd) Acetone, Qual (Negative) 08/08/24 Range/Units 15:46 WBC (4.50-10.00) 10*3/uL RBC (4.10-5.20) 10*6/uL Hgb (12.0-15.0) g/dL Hct (37.2-46.3) % MCV (80.0-97.0) fL MCH (27.0-32.0) pg MCHC (32.0-37.0) g/dL Plt Count (140-440) 10*3/uL MPV (9.5-12.2) fL Immature Gran % (Auto) % Neutrophils % % Lymphocytes % % Monocytes % % Eosinophils % % Basophils % % Immature Gran # (0.00-0.04) 10*3/uL Neutrophils # (1.80-7.70) 10*3/uL Lymphocytes # (0.90-5.00) 10*3/uL Monocytes # (0.20-1.00) 10*3/uL Eosinophils # (0.04-0.35) 10*3/uL Basophils # (0.00-0.10) 10*3/uL Sodium 136 L (137-145) mmol/L Potassium 4.0 (3.5-5.1) mmol/L Chloride 103 (98-107) mmol/L Carbon Dioxide 21 L (22-30) mmol/L Anion Gap 12 mmol/L BUN 12 (7-17) mg/dL Creatinine 0.52 (0.52-1.04) mg/dL Est GFR (CKD-EPI)AfAm >90 (>60 ml/min/1.73 sqM) Est GFR (CKD-EPI)NonAf >90 (>60 ml/min/1.73 sqM) Glucose 107 H (74-99) mg/dL Calcium 9.8 (8.4-10.2) mg/dL Magnesium 1.9 (1.6-2.3) mg/dL Total Bilirubin 0.6 (0.2-1.3) mg/dL AST 21 (14-36) U/L ALT 21 (4-34) U/L Alkaline Phosphatase 81 (38-126) U/L Total Protein 7.8 (6.3-8.2) g/dL Albumin 4.6 (3.5-5.0) g/dL Lipase 42 (23-300) U/L Urine Color Urine Appearance (Clear) Urine pH (5.0-8.0) Ur Specific [place] (1.001-1.035) Urine Protein (Negative) Urine Glucose (UA) (Negative) Urine Ketones (Negative) Urine Blood (Negative) Urine Nitrite (Negative) Urine Bilirubin (Negative) Urine Urobilinogen (<2.0) mg/dL Ur Leukocyte Esterase (Negative) Urine RBC (0-5) /hpf Urine WBC (0-5) /hpf Ur Squamous Epith Cells (0-4) /hpf Urine Bacteria (None) /hpf Urine Mucus (None) /hpf Urine HCG, Qual (Not Detectd) Acetone, Qual Negative (Negative) Disposition Clinical Impression: Gastroenteritis, Ovarian cyst Disposition: HOME SELF-CARE Condition: Good Instructions (If sedation given, give patient instructions): Ovarian Cyst (ED) Additional Instructions: Please return to the Emergency Department if symptoms worsen or any other concerns. Is patient prescribed a controlled substance at d/c from ED?: No Referrals: Nasir Thompson DO [Primary Care Provider] - 1-2 days Time of Disposition: 17:14
[2024-08-08 15:57] LABS: Basophils # (A) 0.08 10*3/uL (0.00-0.10); Basophils % (A) 0.8 %; Eosinophils # (A) 0.24 10*3/uL (0.04-0.35); Eosinophils % (A) 2.4 %; HCT 39.9 % (37.2-46.3); HGB 13.4 g/dL (12.0-15.0); Lymphocytes # (A) 2.46 10*3/uL (0.90-5.00); Lymphocytes % (A) 24.6 %; MCH 29.3 pg (27.0-32.0); MCHC 33.6 g/dL (32.0-37.0); MCV 87.1 fL (80.0-97.0); Mean Platelet Volume 9.2 fL (9.5-12.2); Monocytes # (A) 0.88 10*3/uL (0.20-1.00); Monocytes % (A) 8.8 %; Neutrophils # (A) 6.33 10*3/uL (1.80-7.70); Neutrophils % (A) 63.2 %; Platelet Count 559 10*3/uL (140-440); RBC 4.58 10*6/uL (4.10-5.20); WBC 10.01 10*3/uL (4.50-10.00)
[2024-08-08] MEDS: SODIUM CHLORIDE 0.9% 1,000 ML IV STA (15:57)
[2024-08-08 16:01] LABS: Appearance,Urine Clear (Clear); Bacteria,Urine Rare /hpf; Bilirubin,Urine Negative (Negative); Blood,Urine Large (Negative); Color,Urine Yellow; Glucose,Urine (UA) Negative (Negative); Ketones,Urine Negative (Negative); Leukocyte Esterase,Urine Negative (Negative); Mucus,Urine Few /hpf; Nitrite,Urine Negative (Negative); PH, Urine 5.5 (5.0-8.0); Protein,Urine Negative (Negative); RBC,Urine 1 /hpf (0-5); Specific Gravity,Urine 1.022 (1.001-1.035); Squamous Epithelial Cell,Urine 1 /hpf (0-4); Urobilinogen,Urine <2.0 mg/dL (<2.0); WBC,Urine 1 /hpf (0-5)
[2024-08-08] MEDS: ONDANSETRON 4 MG/2 ML VIAL IVP STA (16:06)
[2024-08-08 16:09] LABS: ALT 21 U/L (4-34); AST 21 U/L (14-36); African American GFR (CKD) >90 (>60 ml/min/1.73 sqM); Albumin 4.6 g/dL (3.5-5.0); Alkaline Phosphatase 81 U/L (38-126); Anion Gap 12 mmol/L; Blood Urea Nitrogen 12 mg/dL (7-17); Calcium 9.8 mg/dL (8.4-10.2); Carbon Dioxide 21 mmol/L (22-30); Chloride 103 mmol/L (98-107); Glucose 107 mg/dL (74-99); Lipase 42 U/L (23-300); Magnesium 1.9 mg/dL (1.6-2.3); Non-African American GFR(CKD) >90 (>60 ml/min/1.73 sqM); Sodium 136 mmol/L (137-145); Total Bilirubin 0.6 mg/dL (0.2-1.3); Total Protein 7.8 g/dL (6.3-8.2)
--- NOTE | 2024-08-08 16:58 | US ---
EXAMINATION TYPE: US transvaginal DATE OF EXAM: 08/08/2024 COMPARISON: US 2019 CLINICAL INDICATION: Female, 34 years old with history of pelvic pain, hx ectopic, LMP 9 weeks ago; S potting and pelvic pain TECHNIQUE: Transvaginal (TV). FINDINGS: Date of LMP: 9 weeks ago EXAM MEASUREMENTS: Uterus: 7.3 x 4.2 x 5.4 cm Endometrial Stripe: 0.5 cm Right Ovary: 3.2 x 1.7 x 1.9 cm Left Ovary: 5.1 x 3.2 x 3.5 cm 1. Uterus: retroverted 2. Endometrium: appears wnl 3. Right Ovary: multiple follicles 4. Left Ovary: 4.1 x 2.7 x 3.6cm cyst Spectral, color and waveform doppler imaging shows good arterial and venous flow within the ovaries ; there is no evidence for ovarian torsion. 5. Bilateral Adnexa: wnl 6. Posterior cul-de-sac: wnl IMPRESSION: 1. No evidence for acute abdominal process. 2. No evidence for ovarian torsion at this moment. 3. Left ovarian cyst measuring up to 4.1 cm. [facility], , 08/08/2024 4:56 PM
[2024-08-08 17:39] VITALS: BP 118/70; PULSE 80; RESP 20; TEMP 98
== END 2024-08-08 17:49 | disposition home or self-care (01) ==
LOC: EC 15:18
DX: K52.9 Noninfective gastroenteritis and colitis, unspecified (principal); N83.202 Unspecified ovarian cyst, left side; Z87.891 Personal history of nicotine dependence; Z88.5 Allergy status to narcotic agent; Z88.6 Allergy status to analgesic agent; Z91.018 Allergy to other foods; Z91.048 Other nonmedicinal substance allergy status; Z88.8 Allergy status to other drugs, medicaments and biological substances
CPT/HCPCS: 36415; 80053; 82009; 83690; 83735; 85025; 81001; 81025; 93975; 76830; 99284; 96374; 96361; J2405

== ENCOUNTER 2024-11-06 23:03 | Emergency (ER) | payer OTHER ==
[2024-11-06 23:08] VITALS: RESP 17
--- NOTE | 2024-11-06 23:15 | ED ---
Lower Extremity Injury HPI - General Chief Complaint: Extremity Injury, Lower Stated Complaint: Left leg injury Time Seen by Provider: 11/06/24 23:05 Source: patient Mode of arrival: ambulatory Limitations: no limitations - History of Present Illness Initial Comments: 34-year-old female with history of asthma, KARMEN, anxiety, depression, bipolar disorder here for left lower extremity injury. Patient reported that at a softball game today she was hit by a softball on her left lower leg and the medial aspect just above the ankle and immediately had a 3 out of 10 pain and bruising, numbness that has improved. She used ice packs and compression and played 3 more hours. As she was going home, she heard a pop at the area that was hit by a softball and her pain acutely went up to 7 out of 10 and she is limping due to the pain. She denied saddle anesthesia, back pain, loss of sensation to her foot, ankle pain, knee pain. - Related Data Home Medications Medication Instructions Recorded Confirmed Albuterol Sulfate [Proair Hfa] 1 - 2 puff INHALATION Q6HR PRN 09/02/21 04/29/24 ALPRAZolam [Xanax] 0.5 mg PO DIRECTED PRN 04/29/24 05/02/24 Less[place] 1 tab PO HS 04/29/24 05/02/24 Semaglutide [Wegovy] 1.7 mg SQ Q14D 04/29/24 04/29/24 Previous Rx's Medication Instructions Recorded HYDROcodone/APAP 5-325MG [[place] 5] 1 each PO Q6HR PRN #5 tab 05/02/24 Celecoxib [CeleBREX] 100 mg PO BID PRN #8 cap 11/06/24 Allergies Allergy/AdvReac Type Severity Reaction Status Date / Time aspirin Allergy Rash/Hives Verified 11/06/24 23:08 cinnamon Allergy Anaphylaxis Verified 11/06/24 23:08 lamotrigine [From Lamictal] Allergy Rash/Hives Verified 11/06/24 23:08 molasses Allergy Anaphylaxis Verified 11/06/24 23:08 amphetamine aspartate AdvReac Hallucinati Verified 11/06/24 23:08 [From Adderall] ons amphetamine sulfate AdvReac Hallucinati Verified 11/06/24 23:08 [From Adderall] ons benztropine mesylate AdvReac Hallucinati Verified 11/06/24 23:08 [From Cogentin] ons codeine AdvReac Hallucinati Verified 11/06/24 23:08 ons dextroamphetamine saccharate AdvReac Hallucinati Verified 11/06/24 23:08 [From Adderall] ons dextroamphetamine sulfate AdvReac Hallucinati Verified 11/06/24 23:08 [From Adderall] ons BROWN SUGAR Allergy Anaphylaxis Uncoded 11/06/24 23:08 nutmeg Allergy Anaphylaxis Uncoded 11/06/24 23:08 spices Allergy Anaphylaxis Uncoded 11/06/24 23:08 Review of Systems ROS Statement: Those systems with pertinent positive or pertinent negative responses have been documented in the HPI. ROS Other: All systems not noted in ROS Statement are negative. Past Medical History Past Medical History: Asthma Additional Past Medical History / Comment(s): heart murmur, iron defeciency anemia, recently tx for URI completed abx and steroids feels much better.. rt shoulder pain History of Any Multi-Drug Resistant Organisms: MRSA Date of last positivie culture/infection: 09/03/20 MDRO Source:: FINGER Past Surgical History: Section, Cholecystectomy Additional Past Surgical History / Comment(s): tube removal, lumpectomy from neck, D&C Past Anesthesia/Blood Transfusion Reactions: No Reported Reaction Additional Past Anesthesia/Blood Transfusion Reaction / Comment(s): mother in a coma after double by pass, had issues with anesthesia after several surgeries. Past Psychological History: Anxiety, Bipolar, Depression Smoking Status: Former smoker Past Alcohol Use History: None Reported Past Drug Use History: None Reported - Past Family History Mother Family Medical History: Congestive Heart Failure (CHF), Diabetes Mellitus, Deep Vein Thrombosis (DVT) Additional Family Medical History / Comment(s): Artificial heart valve depression. heart transplant- Father Family Medical History: Cancer, Myocardial Infarction ([place]) Additional Family Medical History / Comment(s): cabg. stage 4 prostate cancer. colon cancer with colon removed. General Exam - General Exam Comments Initial Comments: Physical examination: Vital signs reviewed General: non toxic, no distress, appears at stated age Head: atraumatic, normocephalic, symmetric Mouth: no lip lesion, mucus membranes moist Cardiovascular: S1S2 reg, no murmur Lungs: CTA bilateral, no rhonchi, no rales, no accessory muscle use Abdominal: soft, nondistended, nontender to palpation, no guarding Ext: muscle strength 5 out of 5 in all 4 extremities grossly, no gross muscle atrophy, no contractures, positive dorsalis pedis pulse bilateral, no edema, bruising noted on medial aspect of left lower extremity, tenderness on palpation of affected area Neuro: no gross focal neuro deficits Psych: Alert and oriented x3, appropriate affect and mood Limitations: no limitations Course Vital Signs 11/06/24 23:04 Temperature 97.9 F Pulse Rate 83 Respiratory 17 Rate Blood Pressure 127/84 O2 Sat by Pulse 98 Oximetry Medical Decision Making - Medical Decision Making Was pt. sent in by a medical professional or institution (JESSICA Lema, ACCESS ANALYST, urgent care, hospital, or usp...) When possible be specific @ -No Did you speak to anyone other than the patient for history (EMS, parent, family, police, friend...)? What history was obtained from this source @ -No Did you review nursing and triage notes (agree or disagree)? Why? @ -I reviewed and agree with nursing and triage notes Were old charts reviewed (outside hosp., previous admission, EMS record, old EKG, old radiological studies, urgent care reports/EKG's, usp records)? Report findings @ -No old charts were reviewed Differential Diagnosis? @ -Differential Musculoskeletal Muscular strain, contusion, ligament sprain, fracture, arthritis, septic arthritis, bursitis, cellulitis, muscle spasm, nerve compression, DVT, arterial occlusion, herpes zoster, electrolyte abnormality, tumor.... This is not meant to be in all inclusive list EKG interpreted by me (3pts min.). @ -None done X-rays interpreted by me (1pt min.). @ -None done CT interpreted by me (1pt min.). @ -None done U/S interpreted by me (1pt. min.). @ -None done What testing was considered but not performed or refused? (CT, X-rays, U/S, labs)? Why? @ -None What meds were considered but not given or refused? Why? @ -None Did you discuss the management of the patient with other professionals (professionals i.e. JESSICA Lema, ACCESS ANALYST, lab, RT, psych nurse, psychotherapist social worker, retail service representative, teacher, retail loan officer, case coordinator)? Give summary @ -Dr. Sanders, supervising physician Was smoking cessation discussed for >3mins.? @ -No Was critical care preformed (if so, how long)? @ -No Were there social determinants of health that impacted care today? How? (Homelessness, low income, unemployed, alcoholism, drug addiction, transp ortation, low edu. Level, literacy, decrease access to med. care, intermediate, rehab)? @ -No Was there de-escalation of care discussed even if they declined (Discuss DNR or withdrawal of care, Hospice)? DNR status @ -No What co-morbidities impacted this encounter? (DM, HTN, Smoking, COPD, CAD, Cancer, CVA, ARF, Chemo, Hep., AIDS, mental health diagnosis, sleep apnea, morbid obesity)? @ -None Was patient admitted / discharged? Hospital course, mention meds given and route, prescriptions, significant lab abnormalities, going to OR and other pertinent info. @ -Discharge. Patient symptoms improved with IM morphine once. She is sent home on celecoxib 100 twice daily. Advised to do elevation compression rest and ice for better recovery. Undiagnosed new problem with uncertain prognosis? @ -No Drug Therapy requiring intensive monitoring for toxicity (Heparin, Nitro, Insulin, Cardizem)? @ -No Were any procedures done? @ -No Diagnosis/symptom? @ -Default Acute, or Chronic, or Acute on Chronic? @ -Acute Uncomplicated (without systemic symptoms) or Complicated (systemic symptoms)? @ -Uncomplicated Side effects of treatment? @ -No Exacerbation, Progression, or Severe Exacerbation? @ -No Poses a threat to life or bodily function? How? (Chest pain, [place], [place], pneumonia, PE, COPD, DKA, ARF, appy, cholecystitis, CVA, Diverticulitis, Homicidal, Suicidal, threat to staff... and all critical care pts) @ -No Disposition Clinical Impression: Lower extremity pain, left Disposition: HOME SELF-CARE Condition: Good Instructions (If sedation given, give patient instructions): Contusion in Adults (ED) Additional Instructions: Every disease is a spectrum and a small chance still exists that a serious condition could develop, for this reason, please monitor yourself closely for new, changing or worsening symptoms, symptoms that persist beyond another 72 hours, intractable back pain, decreased sensation of the affected limb, worsening bruising or bleeding, inability to tolerate/keep down fluids or your medications, inability to follow up with outpatient providers as instructed and should you experience these symptoms or should you have any further concerns for your wellbeing please return to the ED or call 911 immediately. PLEASE call your primary care physician as soon as possible to arrange / discuss plan for followup appointment. Appointment in the next 1-3 days is strongly encouraged if possible. PLEASE let us know here before you leave if there is anything further we can do to be of any assistance. Take care and feel Better! Prescriptions: Celecoxib [CeleBREX] 100 mg PO BID PRN #8 cap PRN Reason: Moderate Breakthrough Pain Is patient prescribed a controlled substance at d/c from ED?: No Referrals: Nasir Thompson DO [Primary Care Provider] - 1-2 days Time of Disposition: 23:48
[2024-11-07] MEDS: MORPHINE SULFATE 2 MG/ML SYRINGE IM STA (00:09)
[2024-11-07 01:20] VITALS: BP 126/81; PULSE 84; TEMP 98
== END 2024-11-07 01:20 | disposition home or self-care (01) ==
LOC: EC 23:03
DX: S80.12XA Contusion of left lower leg, initial encounter (principal); Z87.891 Personal history of nicotine dependence; Z88.5 Allergy status to narcotic agent; Z88.6 Allergy status to analgesic agent; Z91.018 Allergy to other foods; Z88.8 Allergy status to other drugs, medicaments and biological substances; W21.07XA Struck by softball, initial encounter
CPT/HCPCS: 99283; 96372; J2270